=== PATIENT | male | born 1940 | race Caucasian/White ===

== ENCOUNTER 2019-12-08 09:28 | Outpatient (CLI) | payer MEDICARE, OTHER, SELFPAY ==
--- NOTE | 2019-12-08 10:03 | MR_ITS ---
WS: [id number] MRI THORACIC SPINE WITHOUT CONTRAST TECHNIQUE: Sagittal T1, T2 and STIR imaging. Axial T2 imaging. Noncontrast imaging obtained. CLINICAL INFORMATION: POSTLAMINECTOMY SYNDROME COMPARISON: None. FINDINGS: Mild thoracic curve. Mild thoracic kyphosis. Anterior wedging in the thoracic spine. No acute pranay brigido fractures. Cord signal is normal. Small disc osteophyte protrusions in the mid and lower thoraci c spine more prominent at T5-6, T8-9, T9-10, T10-T11, and T11-12. Mild central canal stenosis T10-11. Mild bony foraminal narrowing more prominent at right T2-3, bilateral T9-T10, bilateral T10-11, right T11-T12. Moderate facet arthropathy lower thoracic spine. Normal caliber thoracic aorta. Adrenal glands are normal. MR/MR thoracic spin wo con* [id number] IMPRESSION: 1. Mild thoracic kyphosis with mild thoracic curve. 2. No acute compression fractures. 3. Mild chronic anterior wedging in the mid thoracic spine at T6-7. 4. Mild central canal stenosis T10-11. 5. Moderate facet arthropathy in the lower thoracic spine. 6. Mild bony foraminal narrowing described above.
--- NOTE | 2019-12-08 10:03 | MR_ITS ---
WS: [id number] MRI LUMBAR SPINE WITH CONTRAST TECHNIQUE: Sagittal T1, T2 and STIR imaging. Axial T1 and T2 imaging. Post gadolinium imaging was obt ained. CLINICAL INFORMATION: POSTLAMINECTOMY SYNDROME COMPARISON: MRI April 09, 2010 FINDINGS: Mild lumbar curve. No acute compression. Prior postoperative changes pedicle screw fixation with lami nectomy defects L4-5. Interbody fusion L4-L5 and L5-S1. No high-grade central canal stenosis. L1-L2: Mild disc bulging with endplate ridging. Narrowing of the subarticular recess right greater th an left. Mild to moderate right and mild left foraminal narrowing. Mild facet arthropathy. L2-L3: Mild disc bulge with endplate ridging. Moderate facet arthropathy. Left foraminal protrusion i mpinges the exiting left L2 nerve root with moderate left foraminal narrowing. Mild right foraminal n arrowing. L3-L4: Disc osteophyte complex with endplate ridging. Mild central canal stenosis. Impingement on the traversing L4 nerve roots. Moderate facet arthropathy with small facet effusions. Mild to moderate l eft and mild right foraminal narrowing. L4-L5: Pedicle screw fixation with interbody fusion. Mild left and no significant right foraminal ignacio rowing. Spinal canal is patent. L5-S1: Postoperative changes pedicle screw fixation with interbody fusion. Spinal canal and foramen a re patent. Mild diffuse bladder wall thickening. Enlarged T2 hyperintense prostate is partially visualized. Dorian mmend correlation with PSA. MR/MR lumbar spine wo/w con [id number] IMPRESSION: 1. Partially visualized enlarged prostate with evidence of bladder outlet obst ruction. Recommend correlation PSA. This is incompletely visualized but measure s 5 to 6 cm. 2. Prior postoperative changes pedicle screw fixation L4-5 and L5-S1 with inte rbody fusion grafts and laminectomy defects. No recurrent central canal stenosi s at these levels. 3. Mild central canal stenosis L2-L3 and L3-L4 with narrowing of the subarticu lar recess. 4. Narrowing of the right articular recess L1-2 with encroachment traversing r ight L2 nerve root. 5. Mild to moderate foraminal narrowing more prominent at right L1-2, left L2- 3, left L3-4.
--- NOTE | 2019-12-08 10:03 | XR_ITS ---
WS: [id number] LUMBAR SPINE FLEXION AND EXTENSION TECHNIQUE: 3 views of the lumbar spine: Lateral neutral, flexion, and extension views. CLINICAL INFORMATION: POSTLAMINECTOMY SYNDROME COMPARISON: None. FINDINGS: Prior postoperative changes pedicle screw fixation L4-5. Slight anterolisthesis L3 on L4 measuring 3 mm. No stability on flexion-extension. Disc space narrowing worse at L3-4. Mild disc space narrowing L1-L2 and L2-L3. S1 fusion. XR/XR lumbar spine f/e only [id number] IMPRESSION: 1. Prior postoperative changes pedicle screw fixation L4-5 with interbody fusi on grafts. 2. Slight anterolisthesis L3 on L4 measuring 3.3 mm. No instability on flexion extension.
[2019-12-08 12:14] LABS: Blood Urea Nitrogen 13 mg/dL (8-23)
== END 2019-12-08 09:29 | disposition home or self-care (01) ==
LOC: RADWPI 09:38
PROVIDERS: Family Provider Physician Assistant Medical; Visit Provider Anesthesiology Pain Medicine
DX: M96.1 Postlaminectomy syndrome, not elsewhere classified (principal); M48.04 Spinal stenosis, thoracic region; M47.894 Other spondylosis, thoracic region; M43.26 Fusion of spine, lumbar region; M48.061 Spinal stenosis, lumbar region without neurogenic claudication
CPT/HCPCS: 72120; 72146; 72158; 82565; 84520; A9579

== ENCOUNTER 2019-12-31 08:02 | Outpatient (CLI) | payer MEDICARE, OTHER, SELFPAY ==
--- NOTE | 2019-12-31 08:24 | ECG_ITS ---
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 Interpretive Statements NAME OF STUDY: LEXISCAN SESTAMIBI STRESS TEST INDICATION: Chest Pain PROCEDURE: At the baseline, the blood pressure was 145/87 mmHg with a heart rate of 60 bpm. The electrocardiogram showed atrial fibrillation with slow ventricular response at 52 bpm. Normal axis with nonspecific ST depression. The Lexiscan was infused over a period of 20 seconds. A total of 0.4 milligrams of Lexiscan was infused. The stress phase was continued for a total of 5 minutes. Heart rate at the end of the stress phase was 71 bpm with a blood pressure 164/96 mmHg. The EKG at the peak infusion revealed no significant ST-T wave changes. Sestamibi was injected 20 seconds after the Lexiscan infusion. Blood pressure at the end of the recovery phase was 161/95 mmHg with a heart rate of 65 beats per minute. CONCLUSION: 1. No significant EKG changes with the LexiScan infusion. 2. No LexiScan induced chest pain or cardiac arrhythmia. 3. Normal blood pressure and heart rate response. 4. Sestamibi/sestamibi perfusion scan pending; see separate report. Electronically Signed On 01-02-2020 13:54:54 CDT by Beatrice Willson M.D. [email or web address]
[2019-12-31 08:25] VITALS: BMI 39.5
--- NOTE | 2019-12-31 08:25 | NMCV_ITS ---
NM john perf SPECT r/s* [id number] Brandon Tuttle Age: 79 Gender: M : 1940 Exam Date: 12/31/2019 09:40 Ordering Phys: Inderjit Naylor PA-C XX Technologist: ODETTE Hayes Exam Location: [facility] Indications: CHEST PAIN STRESS TEST Please [facility] for full findings IMAGE PROTOCOL Rest/Stress 1 Lexiscan Day Radiopharmaceutical Dose (mCi) Administration Site Administered by Rest: Tc-99m 11.0 IV ODETTE Peraza Sestamibi Stress:Tc-99m 32.6 IV ODETTE Peraza Sestamibi Rest: 31-Dec-2019 60 Discovery 630 Stress: 31-Dec-2019 30 Discovery 630 0.4mg Lexiscan. Supine position only as patient was unable to lay prone. SPECT RESULTS Technical Quality: Excellent Raw Data Analysis: Normal Image Corrections: No attenuation or motion correction applied Summed Stress Score: 0 Summed Rest Score: 4 Summed Difference Score: 0 PERFUSION FINDINGS Small sized perfusion abnormality of mild severity of mid septal and mid to apical inferolateral juan on rest images with improved tracer uptake on stress images. This is suggestive of attenuation artifact. FUNCTIONAL RESULTS (calculated via Gated SPECT) Stress Image LV EF (%): 55 Stress EDV (mL):129 TID: 1.14 Stress ESV (mL):58 FUNCTIONAL FINDINGS: The left ventricle is normal in size. Transient Ischemia Dilatation of 1.1. There is normal left ventricular systolic function. The left ventricular ejection fraction is normal with a value of 55%. There is normal left ventricular wall thickening. IMPRESSIONS 1. Myocardial perfusion imaging is normal. Attenuation artifact noted in mid septal and mid inferolateral juan. 2. Overall left ventricular systolic function is normal without regional wall motion abnormalities. 3. The left ventricular ejection fraction is normal with a value of 55%. 4. No coronary ischemia based on the study. Beatrice Willson MD (Electronically Signed) Final Date: 02 January 2020 12:26 S
[2019-12-31] MEDS: regadenoson 0.4 Mg/5 ml Syringe IVP (10:19)
[2019-12-31 11:15] VITALS: BP 161/95; PULSE 75
== END 2019-12-31 08:03 | disposition home or self-care (01) ==
LOC: CDL 08:02
PROVIDERS: Family Provider Physician Assistant Medical; Visit Provider Physician Assistant Medical
DX: R07.9 Chest pain, unspecified (principal)
CPT/HCPCS: 78452; 93017; A9500; J2785

== ENCOUNTER 2020-01-13 09:26 | Observation (INO) | payer MEDICARE, OTHER, SELFPAY ==
[2020-01-12 12:27] VITALS: BMI 39.5
[2020-01-13] VITALS (19 sets, daily range): BP systolic 110–158; BP diastolic 77–101; PULSE 55–75; RESP 16–21; TEMP 36.2–37.1; O2SAT 96–100
--- NOTE | 2020-01-13 | XR_ITS ---
WS: [id number] INTRAOPERATIVE TECHNIQUE: 2 Spot fluoroscopic images for intraoperative purposes. FLUOROSCOPY TIME: 39.2 seconds CLINICAL INFORMATION: THORACIC SPINE STIMULATOR IMPLANT COMPARISON: None. FINDINGS: Dorsal spinal stimulator projected over the mid and lower thoracic spine. XR/XR thoracic spine 1V [id number] IMPRESSION: Images obtained for intraoperative purposes.
--- NOTE | 2020-01-13 | SCC_ITS ---
Procedure Done: Thoracic laminotomy, with placement of intraspinal epidural paddle electrode arrays. Placement of subcutaneous programmable pulse generator. 39.2 seconds of fluoroscopic guidance, for a cumulative dose of 31.51 mGy, was provided to Dr. Ramires by the radiology department. C-arm images of the thoracic spine were saved for the patient's permanent record. [facility]
--- NOTE | 2020-01-13 06:28 | ANES.PREANE2 ---
Pre-Anesthetic Assessment Pre-Anesthetic Assessment: Height/Weight: Height 1.73 m Weight 117.934 kg Temp Pulse Resp BP Pulse Ox 97.6 F 66 18 140/77 97 01/13/20 06:12 01/13/20 06:12 01/13/20 06:12 01/13/20 06:12 01/13/20 06:12 Preop Diagnosis: Lumbar postlaminectomy syndrome Proposed Procedure: Operation Date: 01/13/20 07:00 Proposed Procedures p Dorsal Column Stimulator Insertion/[id number] M96.1(Not Applicable) - Davidson Ramires MD Familial anesthetic complications: None Was Beta Pilar taken within 24 hours: N/A Last intake: NPO > 8 hrs NO warfarin since last week Social: Social History: No alcohol and No tobacco Exam: Pre-Anes Outpt Exam: alert, oriented x 3, clear to auscultation bilaterally and regular rate & rhythm Airway: Cervical ROM: WNL MP: 4 Dentition: Full Pulmonary: Pulmonary: None reported CV/HEM: CV/HEM: Afib and HTN Metabolic: Metabolic: Morbid obesity Neuropsych: Neuropsych: None reported Anesthetic Plan: ASA status: 3 Anesthesia: MAC Risk of > 500 ml blood loss (7ml/kg in children): No PFSH Anesthesia PFSH: Medical History (Updated 12/21/19 @ 13:54 by Davidson Ramires MD) Lumbar post-laminectomy syndrome Lumbar stenosis with neurogenic claudication Postlaminectomy syndrome Spondylolisthesis, lumbar region Surgical History (Updated 12/21/19 @ 13:54 by Davidson Ramires MD) History of lumbar surgery (~12/02/14) L5-S1 PLIF with methylmethacrylate pedicle screw augmentation, Dr. Albrecht History of sacroiliac joint dysfunction stereotactic guided left sacroiliac joint arthrodesis with instrumentation, Dr. 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
[2020-01-13] MEDS: sodium chloride 0.9% 1,000 ML 30 ML IV (06:47)
[2020-01-13] MEDS: vancomycin 1,000 MG in sodium chloride 0.9% 250 ML 250 MG IV (06:47)
--- NOTE | 2020-01-13 06:48 | W.PM.OPSUD ---
Surgery/Procedure H&P Update DATE OF PROCEDURE: January 13, 2020 DATE H&P PERFORMED: 12/16/19 H&P UPDATE INFORMATION: I have reviewed H&P completed within last 30 days and H&P to be scanned into chart PREOP DIAGNOSIS: Lumbar postlaminectomy syndrome PRIMARY INDICATION FOR PROCEDURE: Pain PLANNED PROCEDURE: Operation Date: 01/13/20 07:00 Proposed Procedures Thoracic spinal cord Stimulator Placement
[2020-01-13] MEDS: ceFAZolin 3,000 MG in sodium chloride 0.9% (100 ml) 100 ML 200 MG IV (07:00)
--- NOTE | 2020-01-13 07:02 | PM.OP2 ---
Brief Operative Note: Date of procedure: 01/13/20 Pre-op diagnosis: Lumbar Postlaminectomy syndrome Post-op diagnosis: same Procedure Done: Placement of thoracic spinal cord stimulator paddle lead and pulse generator. Surgeon: Davidson Ramires Estimated blood loss (mL): 10 Complications: None. Post-op Plan: PACU, then phillips Condition: stable Disposition: PACU Coding Level of Care Code Acute Chemist Instrumentation for Deanna Wetzel
[2020-01-13] MEDS: thrombin 5,000 unit SDV 5000 UNIT XX (08:43)
[2020-01-13] MEDS: morphine 4 mg/mL SDV 1 mL IVP (09:51)
--- NOTE | 2020-01-13 09:55 | SUR.PHASEI ---
0951 PT HAS BEEN SLEEPING SINCE ADMIT, EVEN RESP SATS 100% ON 2LNC, DRESSING TO BACK D/I PT JUST NOW PT NOW AWAKE MOANING RATES MID BACKPAIN AT 10 SEE MED GIVEN.
[2020-01-13] MEDS: fentaNYL 50 mcg/mL INJ 2mL 100 MCG IVP (10:08)
--- NOTE | 2020-01-13 10:21 | SUR.PHASEI ---
DR BLACK AT BEDSIDE EARLIER MEDS GIVEN DR BLACK AT BEDSIDE, SEE FENTANYL AND OFIRMEV GIVEN ORDERED PT DOZING FOR FEW SECONDS BUT AWAKES RESTLESS AND C/O OF UNCHANGED PAIN OF 10 , FACE SCALE 3-4 . REPORT CALLED TO FLOOR PT TO GET PO PAIN MED ON FLOOR DRESSING TO BACK D/I X 2
--- NOTE | 2020-01-13 10:24 | SUR.PHASEI ---
LATE ENTRY PT TO PACU 0832 SLEEPING PT RYTHM ON MONITOR AFIB
--- NOTE | 2020-01-13 10:57 | SUR.PHASEI ---
1035 PT TO FLOOR AWAKE ALERT PT UP WALKED TO BED WITH MINIMAL ASSIST, VSS DRESING WITH SMALL 2 SPOTS OF RED TO MID BACK TELFA MARKED BY FLOOR NURSE , HANDOFF AT BEDSIDE PT STATEE PAIN IS BETTER BUT STILL 30 , FACE SCALE 3
[2020-01-13] MEDS: lactated ringers 1,000 ML 90 ML IV (11:00)
--- NOTE | 2020-01-13 14:37 | PM.OP ---
Operative Report Date of procedure: January 13, 2020 Pre-op Diagnosis: Lumbar postlaminectomy syndrome Post-op diagnosis: same Procedure Done: Thoracic laminotomy, with placement of intraspinal epidural paddle electrode arrays. Placement of subcutaneous programmable pulse generator. Implants: [employer] CoverEdge 32, 70 cm, 4X8 surgical first assistant. Sols WaveWriter pulse generator. Clik anchors. Fixate suture devices. Pathology: none sent Surgeon: Davidson Ramires Anesthesia: MAC Estimated blood loss (mL): 10 IV fluids (mL): 300 Complications: None. Condition: stable Disposition: PACU Brief History: The patient is an 79-year-old male with chronic low back and bilateral hip pain. He had an L4-L5 fusion/fixation and a left SI joint fusion in [place]. Persistent pain prompted a percutaneous spinal cord stimulation trial, which provided 60-70% improvement in pain related parameters during the trial. After review of the diagnostic and treatment options with the risks/potential benefits/rationale for each, he requested to proceed with permanent thoracic spinal cord placement. Procedure: After routine preoperative evaluation and informed consent were obtained, the patient was taken to the Operating Room and positioned prone on the operating table. Chest and pelvic bolsters were positioned to ensure the abdomen was decompressed. All pressure points were padded. The patient reported the position to be comfortable. He was maintained under varying levels of intravenous sedation by Anesthesia personnel. The planned right flank pulse generator placement incision was marked with a skin marker. A planned midline posterior thoracic incision was likewise marked, after intraoperative localization with fluoroscopy. The patient's lead location during the successful percutaneous trial was utilized to guide placement for the permanent implant. The posterior thorax and flank areas were scrubbed with Betadine and prepped with DuraPrep. Sterile towels and drapes were applied, and an Ioban surgical barrier was placed. The proposed midline thoracic incision was infiltrated with 1% Xylocaine with epinephrine. A skin incision was made and carried down into the subcutaneous tissues. The deep fascial plane was identified and divided in the midline. A right-sided subperiosteal dissection was carried down along the lamina at what appeared by intraoperative fluoroscopy to be T8/9. Deep self-retaining retractors were placed to maximize the operative exposure. A laminotomy was fashioned with Kerrison rongeurs. Ligamentum flavum was resected at the base of the laminotomy site. The hockey-stick dural separator was advanced into the dorsal epidural space without resistance, and then removed. The [employer] CoverEdge 32, 70 cm, 4 x 8 surgical first assistant was then advanced into the dorsal epidural space. Intraoperative fluoroscopy suggested a near midline position with the cephalad extent of the lead extending across the majority of T7. A limited adjacent level laminotomy was required to complete positioning of the lead in the desired location. Anesthesia personnel diminished the patient's sedation until he was awake and conversant. The lead tails were connected to extension cables, and intraoperative spinal cord stimulation was performed. The patient reported good paresthesia coverage of his chronic low back and hip pain sites. Lead impedances were good. The patient's sedation was deepened. The wound was copiously irrigated with sterile saline and antibiotic irrigation. Hemostasis was ensured with bipolar electrocautery and Surgi-Tai hemostatic matrix. The fascia was closed utilizing 2-0 Vicryl Plus in a simple interrupted fashion. CLIK lead anchors were placed over 2 of the 4 lead tails, and secured at the fascial entry point with Fixate suture devices. The lead - anchor - fascial interfaces were manipulated and found to be secure. Intraoperative fluoroscopy verified a stable lead position. Strain relief loops of the lead tails were fashioned within the subcutaneous space at the thoracic incision site. The right flank incision site was prepared by infiltration with 1% Xylocaine with epinephrine. An incision was then made, and a subcutaneous pocket was created of adequate size to accommodate the pulse generator. The subcutaneous tunneling tool was utilized to create a subcutaneous passage between the thoracic and right flank incisions. Lead tails were advanced through the subcutaneous tunnel utilizing the tunneling tool. The lead tails were advanced into the appropriate ports on the Sols WaveWriter pulse generator. An impedance check demonstrated no lead faults. The connection sites were secured with set screws and the torque wrench. The connection sites were manipulated and found to be secure. A second impedance check demonstrated no lead faults.The right flank subcutaneous pocket and the thoracic incision site were copiously irrigated with antibiotic irrigation. Hemostasis was ensured. The pulse generator was placed within the right flank subcutaneous pocket, with excess lead coiled deep/adjacent to the device. The pulse generator was anchored to the superficial fascia with a single Silk suture. The site was again irrigated with antibiotic irrigation. Wound closure was performed in multiple layers with 2-0 Vicryl Plus simple interrupted closure of the dermis. Intraoperative fluoroscopy was again utilized to verify a stable lead position. Final skin closure was performed at both incision sites with 3-0 Vicryl Plus in a running subcuticular pattern. Steri-Strips were applied, and sterile dressings were placed. The patient was then rotated onto the Recovery Room cart in the supine position. He tolerated the procedure well. All sponge, needle and instrument counts were correct at the completion of the procedure.
--- NOTE | 2020-01-13 17:55 | P.DS_ITS ---
Discharge Providers Date of Admission: 01/13/20 09:26 Date of Discharge: January 13, 2020 Attending Provider at Admission: Davidson Ramires MD Attending Provider at Discharge: Davidson Ramires MD Primary Care Provider: Inderjit Naylor Diagnoses at Discharge Discharge Diagnosis (1) Lumbar post-laminectomy syndrome: Status: Acute Reason for Visit Reason for Visit: Lumbar laminectomy syndrome Brief History: The patient is an 79-year-old male with chronic low back and bilateral hip pain. He had an L4- L5 fusion/fixation and a left SI joint fusion in [place]. Persistent pain prompted a percutaneous spinal cord stimulation trial, which provided 60- 70% improvement in pain related parameters during the trial. After review of the diagnostic and treatment options with the risks/potential benefits/rationale for each, he requested to proceed with permanent thoracic spinal cord placement. Hospital Course Hospital Course: The patient underwent thoracic laminotomy placement of intraspinal, epidural paddle electrode arrays and placement of subcutaneous programmable pulse generator on 01/13/2020. He noted good paresthesia coverage of chronic low back and hip pain with intraoperative stimulation. He tolerated the procedure well. He completed perioperative intravenous antibiotics. He was ambulatory, voiding, and tolerating regular diet prior to discharge home on the evening of the day of surgery. Physical Exam Const: COMMON NORMALS: no acute distress GENERAL APPEARANCE: cooperative and comfortable Resp: COMMON NORMALS: normal respiratory effort EFFORT & INSPECTION: Yes able to speak in complete sentences and No tachypneic Neuro: COMMON NORMALS: moves all extremities Psych: COMMON NORMALS: mental status grossly normal ATTITUDE: Yes calm and Yes engaged ACTIVITY/MOTOR BEHAVIOR: Yes appropriate eye contact Skin: WOUNDS: Yes surgical site (Midline posterior thoracic and right flank surgical site dressings C/D/I.) Discharge Data Data Completed and Pending: Completed Studies During Hospitalization Category Date Time Status XR thoracic spine 1V [id number] Routine Exams 01/13/20 Completed Procedures Performed: Thoracic laminotomy with placement of intraspinal, epidural paddle electrode arrays. Placement of subcutaneous programmable pulse generator. Intravenous antibiotics. Vitals: Last Vital Signs Temp 98.2 F 01/13/20 17:02 Pulse 61 01/13/20 17:02 Resp 16 01/13/20 17:02 BP 138/78 01/13/20 17:02 Pulse Ox 97 01/13/20 17:02 Discharge Plan Discharge Patient Disposition: Home, Self-Care Condition: Stable Prescriptions: [place] 10-325 mg tablet 1 tab PO Q6H PRN (Reason: pain) Qty: 25 RF: 0 Continued lisinopril 20 mg tablet 20 mg PO DAILY RF: 0 acetaminophen [Tylenol] 325 mg tablet 325 mg PO QID PRN (Reason: Pain) RF: 0 Held warfarin 5 mg tablet 5 mg PO DAILY RF: 0 Hold Instructions: Resume on 01/15/20. Discontinued hydrocodone-acetaminophen 5-325 mg tablet 5 tab PO PRN PRN (Reason: Pain) RF: 0 Discharge Orders: Discharge Order (Routine); Ordered 01/13/20 Ordered By: Davidson Ramires Referrals: Davidson Ramires MD [Physician] - 01/27/20 9:00 am (You have a hospital follow up appointment on January 26 at 9:00am) Discharge Diet: Regular Discharge Activity: Limit activity as instructed Patient Instructions: Hydrocodone/Acetaminophen (By mouth), Spinal Cord Stimulator Placement (DC) Activity Restrictions/Additional Instructions: Activity - No driving until office followup visit - No lifting/pushing/pulling over 10 pounds - Avoid twisting or bending - Walking is encouraged - Home exercise per physical therapist - You may engage in sexual intercourse at any time as long as it is comfortable for you - Check with your doctor before returning to work. Notify your doctor if you develop: - temperature of 101.5 degrees F. or higher - redness or swelling of the incision - Foul drainage - increasing pain - increasing numbness or tingling in the arms or legs - New or increasing problems with vision, balance, memory, speaking, nausea or v omiting Hygiene: - Showering is okay - No tub baths or soaking Other: Remove outer bandage 3 days after surgery. If you have paper strips, leave in place until they fall off on their own. If you have stitches, keep your incision dry until the stitches are removed. Your doctor's office is available to answer any questions from 7 AM to 5:00 PM, Friday through at [phone]. After hours, go to the emergency room at [facility] or call 911 for assistance. Discharge Date/Time: 01/13/20 17:05 Discharge Attestations Time Spent in Discharge Care*: other (Postop global) Quality Metrics Clinical Quality Measures During this hospital stay, did patient experience: None Coding Level of Care Code Acute Music Librarian for Chg Fwd Exam Detailed Diagnoses Lumbar post-laminectomy syndrome M96.1 Comment Postop global.
== END 2020-01-13 17:05 | disposition home or self-care (01) ==
LOC: MEDSURG 09:39
PROVIDERS: Admitting Provider Specialist; PCP Physician Assistant Medical; Visit Provider Specialist
PROC: (CPT 63655; principal; 2020-01-13 07:00)
DX: M96.1 Postlaminectomy syndrome, not elsewhere classified (principal); I48.91 Unspecified atrial fibrillation; I10 Essential (primary) hypertension; E66.01 Morbid (severe) obesity due to excess calories; Z68.39 Body mass index [BMI] 39.0-39.9, adult; Z79.01 Long term (current) use of anticoagulants
CPT/HCPCS: 63655; 63685; 12345; 72020; 76000; 96365; 96366; C1778; C1820; C1883; G0378; J0131; J0690; J2001; J2270; J2704; J3010; J3370; J3490; J7030; J7050

== ENCOUNTER 2020-10-24 08:09 | Outpatient (CLI) | payer MEDICARE, OTHER, SELFPAY ==
--- NOTE | 2020-10-24 08:27 | IR_ITS ---
WS: [id number] MYELOGRAM LUMBAR SPINE Fluoroscopic guided lumbar myelogram CLINICAL INFORMATION: LOW BACK PAIN COMPARISON: None. TECHNIQUE: The procedure, including risks, benefits, and complications, were discussed with the patie nt who agreed to proceed. A timeout was performed to confirm correct patient, procedure, and site. Using sterile technique, the patient was prepped and draped in the usual sterile fashion. After admin istration of local anesthesia using 1% preservative-free lidocaine and using fluoroscopic guidance, a 22-gauge spinal needle was advanced into the subarachnoid space at the L4-5 level. Subsequently 13 c c of Omnipaque 240 was administered into the thecal sac. The needle was removed and hemostasis was ac hieved. Spot fluoroscopic images were obtained. FLUOROSCOPIC TIME: 1.[address] myelogram report for anatomic detail. IR/IR myelogram sp lumbar [id number] IMPRESSION: 1. Uncomplicated lumbar myelogram 2. Please see CT myelogram report for anatomic detail.
--- NOTE | 2020-10-24 08:28 | CT_ITS ---
WS: [id number] CT LUMBAR SPINE TECHNIQUE: Contrast-enhanced CT of the lumbar spine with coronal and sagittal reformatted images. CLINICAL INFORMATION: LOW BACK PAIN COMPARISON: MRI December 08, 2019 DLP: 2142.[address] scans at [facility] use at least one of these dose optimization techniques: automat ed exposure control; mA and/or kV adjustment per patient size (includes targeted exams where dose is matched to clinical indication); or iterative reconstruction. FINDINGS: Fluoroscopic findings demonstrates mild lumbar curve. No acute compression. Disc space narr owing worse at L3-4 with vacuum disc phenomenon. Pedicle screw fixation L4-L5 and L5-S1 with interbod y fusion grafts. Left sacroiliac fixation screws. Aortic calcification. Spinal stimulator. Hardware a ppears intact. Slight anterolisthesis L3 on L4. No instability on flexion-extension. Moderate facet arthropathy lowe r lumbar spine L3-L5. Mild central canal stenosis L3-4. Mild lumbar curve convex left. No acute compression. No high-grade central canal stenosis. Prior post operative changes pedicle screw fixation L4-L5 and L5-S1 with interbody fusion grafts. No evidence of hardware loosening. Postoperative changes left sacroiliac screw fixation. Interbody fusion grafts ap pear solid with evidence of bony bridging beyond the confines of the graft. L1-L2: Disc space narrowing with vacuum disc phenomenon. Mild disc bulging with osteophytic ridging. Narrowing of the right subarticular recess. Small right proximal foraminal protrusion with mild right foraminal narrowing with contact of the exiting right L1 nerve root. Mild facet arthropathy and liga mentum flavum hypertrophy. L2-L3: Mild disc bulging with slight effacement of ventral thecal sac. Right proximal foraminal protr usion contacts the exiting right L2 nerve root. Recommend correlation right L2 nerve root symptoms. L eft foramen is patent. Spinal canal is patent. Mild facet arthropathy with ligamentum flavum hypertro phy. L3-L4: Disc desiccation with disc space narrowing worse at this level. Vacuum disc phenomenon. Mild c entral canal stenosis with narrowing of the subarticular recess bilaterally. Moderate bilateral alejandrina inal narrowing left greater than right with small foraminal protrusions. L4-L5: Prior postoperative changes pedicle screw fixation with interbody fusion. Mild left and no sig nificant right foraminal narrowing. Spinal canal is patent. L5-S1: Postoperative changes pedicle screw fixation with interbody fusion. Spinal canal and foramen a re patent. Adrenal glands are normal. Aortic calcification. Slightly ectatic infrarenal abdominal aorta. CT/CT lumbar spine w con [id number] IMPRESSION: 1. Prior postoperative changes pedicle screw fixation L4-5 with interbody fusi on grafts. No evidence of hardware loosening. Evidence of bony bridging beyond the confines of the interbody fusion grafts. 2. Left sacroiliac fusion screws. 3. Mild central canal stenosis L3-4 with slight impingement subarticular reces s bilaterally. Moderate bilateral foraminal narrowing left greater than right w ith proximal left foraminal protrusion. 4. Small right foraminal protrusion L2-3 contacts the exiting right L2 nerve r oot with slight narrowing of the right subarticular recess. 5. Small right foraminal protrusion L1-2 slightly contacts the exiting right L 1 nerve root. 6. Disc desiccation worse at L3-4 with endplate degenerative changes.
[2020-10-24] MEDS: iohexol 240 mg/mL 50 mL Btl INTRATHECA (09:13)
== END 2020-10-24 08:10 | disposition home or self-care (01) ==
PROVIDERS: PCP Physician Assistant Medical; Visit Provider Specialist
DX: M51.26 Other intervertebral disc displacement, lumbar region (principal); M48.061 Spinal stenosis, lumbar region without neurogenic claudication
CPT/HCPCS: 62304; 72120; 72132; Q9966

== ENCOUNTER → 2022-05-07 15:50 | Outpatient (BNVA) | payer MEDICARE, OTHER, SELFPAY | PROVIDERS: PCP Physician Assistant Medical; Visit Provider Orthopaedic Surgery | DX: M48.062 Spinal stenosis, lumbar region with neurogenic claudication (principal); Z96.82 Presence of neurostimulator; Z98.1 Arthrodesis status; M41.9 Scoliosis, unspecified; M47.816 Spondylosis without myelopathy or radiculopathy, lumbar region | CPT/HCPCS: 72070; 72110; 99204 ==

== ENCOUNTER 2022-06-17 05:30 | Day surgery (SDC) | payer MEDICARE, OTHER, SELFPAY ==
[2022-06-12 08:45] VITALS: BMI 39.2
--- NOTE | 2022-06-12 08:58 | ECG_ITS ---
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 Measurements Intervals [place] Rate: 77 P: 0 VT: 0 QRS: 218 QRSD: 105 T: 180 QT: 390 QTc: 443 Interpretive Statements ATRIAL FIBRILLATION PATTERN CONSISTENT WITH PULMONARY DISEASE No previous ECG available for comparison Electronically Signed On 06-12-2022 9:27:44 ENDOCRINOLOGY SPECIALIST by Yulissa Kumar M.D. [id number]
[2022-06-12 09:33] LABS: Anion Gap 11.5 (5-19); Blood Urea Nitrogen 16 mg/dL (8-23); Calcium 9.5 mg/dL (8.5-10.5); Carbon Dioxide 26 mmol/L (22-29); Chloride 104 mmol/L (98-107); Glucose 89 mg/dL (65-115); Osmolality Calculated 285 mOsm/kg (285-295); Potassium 4.5 mmol/L (3.5-5.1); Sodium 137 mmol/L (136-145)
--- NOTE | 2022-06-12 09:34 | SUR.PREOP ---
patient takes warfarin daily. patient instructed to ask dr when he sees them at his pt/inr appointment today to ask them when he needs to quit taking warfarin prior to surgery on 06/17. patient understood. pt family member present for discussion. patient was not seen by anesthesia at pre op today due to code blue in gi lab.
--- NOTE | 2022-06-12 13:04 | SUR.PREOP ---
clinic called back for patient to stop warfarin 5 days prior to surgery. called patient and he states they told him today at his appointment to not take anymore after the dose he took today until after surgery.
[2022-06-17] VITALS (8 sets, daily range): BP systolic 120–162; BP diastolic 80–102; PULSE 71–102; RESP 14–21; TEMP 36.3–36.5; O2SAT 17–95
--- NOTE | 2022-06-17 | XR_ITS ---
WS: [id number] XR thoracic spine 2V [id number] REASON FOR EXAM: removal of spinal cord stimulator FINDINGS: Several C-arm images are obtained during removal of the spinal cord stimulator. XR/XR thoracic spine 2V [id number] IMPRESSION: Spinal cord stimulator removed.
--- NOTE | 2022-06-17 06:01 | PM.HP ---
Providers/Chief Complaint Chief Complaint: LAMINECTOMY FOR NEUROSTIMULATOR WIRE REMOVAL History of Present Illness Brandon Tuttle is a 81 year old male poppy cord stimulator lead removal. This was placed on 01/13/2020.? He rates his pain 8/10 today.? He states he would like his spinal cord stimulator leads removed. He states he had someone at [facility] remove the generator however they were unable to remove the leads. He describes soreness to his low back. He states he is unable to walk long distances due to his pain. Review of Systems General: Reports: 10 or more systems reviewed and unremarkable except in HPI and below Narrative: See HPI Const: Denies: fever(s) Eyes: Denies: change in vision Card: Denies: chest pain Resp: Denies: dyspnea GI: Denies: nausea, vomiting or diarrhea : Denies: flank pain Musc: Denies: neck pain Skin/Breast: Denies: rash Medications/Allergies Home Medications Medication Instructions Recorded Confirmed Last Taken Type acetaminophen 325 mg tablet 325 mg PO QID PRN Pain 12/15/19 06/12/22 06/11/22 History (Tylenol) lisinopril 20 mg tablet 20 mg PO DAILY 12/15/19 06/17/22 06/16/22 History warfarin 5 mg tablet 5 mg PO DAILY 12/15/19 06/12/22 06/12/22 History furosemide 20 mg tablet 10 mg PO DAILY 04/16/21 06/12/22 06/13/22 History Allergies Allergy/AdvReac Type Severity Reaction Status Date / Time No Known Allergies Allergy Verified 06/17/22 05:57 PFSH Acute PFSH: Medical History (Updated 06/17/22 @ 06:02 by Alex Orona DO) Lumbar post-laminectomy syndrome Lumbar stenosis with neurogenic claudication Otitis media Post-operative state Postlaminectomy syndrome Spondylolisthesis, lumbar region Surgical History History of lumbar surgery (~12/02/14) L5-S1 PLIF with methylmethacrylate pedicle screw augmentation, Dr. Albrecht History of sacroiliac joint dysfunction stereotactic guided left sacroiliac joint arthrodesis with instrumentation, Dr. De León, 12/2018 Status post insertion of spinal cord stimulator 01/13/2020 Dr. D. Green: Thoracic laminotomy, placement of intraspinal, epidural paddle electrode arrays and placement of subcutaneous programmable pulse generator. 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 History of recent travel: No Physical Exam Const: COMMON NORMALS: no acute distress GENERAL APPEARANCE: cooperative and comfortable Resp: COMMON NORMALS: normal respiratory effort EFFORT & INSPECTION: Yes able to speak in complete sentences and No tachypneic Neuro: COMMON NORMALS: moves all extremities Psych: COMMON NORMALS: mental status grossly normal ATTITUDE: Yes calm and Yes engaged ACTIVITY/MOTOR BEHAVIOR: Yes appropriate eye contact Skin: WOUNDS: Yes surgical site (Midline posterior thoracic and right flank surgical site dressings C/D/I.) Data 06/12/22 09:03 A&P Assessment and plan (1) Lumbar stenosis with neurogenic claudication: removal of spinal cord stimulator Attestations Medical Necessity Statement*: failed conservative treatment Coding Level of Care Code Acute President [employer] for Deanna Wetzel Diagnoses Lumbar stenosis with neurogenic claudication M48.062
[2022-06-17] MEDS: sodium chloride 0.9% 1,000 ML 30 ML IV (06:29)
[2022-06-17 06:52] LABS: INR 1.18 (0.8-1.2)
[2022-06-17] MEDS: ceFAZolin 2,000 MG in sodium chloride 0.9% (plus) 50 ML 100 MG IV (07:00)
--- NOTE | 2022-06-17 07:13 | ANES.PREANE2 ---
Pre-Anesthetic Assessment Height/Weight: Height 1.78 m Weight 123.831 kg Temp Pulse Resp BP Pulse Ox O2 Del Method 97.5 F L 71 18 141/80 95 06/17/22 06:01 06/17/22 06:01 06/17/22 06:01 06/17/22 06:01 06/17/22 06:01 06/17/22 06:04 Preop Diagnosis: Failed hardware thoracic spine Operation Date: 06/17/22 07:00 Proposed Procedures p Lumbar Laminectomy FOR NEUROSTUMULATOR WIRE REMOVAL 99639/M48.062(Not Applicable) - Alex Orona, Familial anesthetic complications: none Was Beta Pilar taken within 24 hours: N/A Was Clonidine taken within 24 hours: N/A Last intake: Intake Last Liquid Date 06/16/22 Last Liquid Time 19:00 Last Solid Date 06/16/22 Last Solid Time 19:00 Social No alcohol and No tobacco (h/o smoking) Exam alert, oriented x 3, clear to auscultation bilaterally and regular rate & rhythm Airway Submandibular: within normal limits Cervical ROM: within normal limits Mallampati: Class II Dentition: chipped Pulmonary Chronic Obstructive Pulmonary Disease CV/HEM Hypertension Metabolic Morbid Obesity [facility] Lower Back Pain Anesthetic Plan ASA status: 3 Anesthesia: General Medications/Allergies Home Medications Medication Instructions Recorded Confirmed Last Taken Type acetaminophen 325 mg tablet 325 mg PO QID PRN Pain 12/15/19 06/12/22 06/11/22 History (Tylenol) lisinopril 20 mg tablet 20 mg PO DAILY 12/15/19 06/17/22 06/16/22 History warfarin 5 mg tablet 5 mg PO DAILY 12/15/19 06/12/22 06/12/22 History furosemide 20 mg tablet 10 mg PO DAILY 04/16/21 06/12/22 06/13/22 History hydrocodone 5 mg-acetaminophen 325 1 - 2 tab PO .Q4-6H #40 tabs 06/17/22 Unknown Rx mg tablet Allergies Allergy/AdvReac Type Severity Reaction Status Date / Time No Known Allergies Allergy Verified 06/17/22 05:57 Current Medications Generic Name Dose Route Start Last Admin Trade Name Freq PRN Reason Stop Dose Admin Sodium Chloride 1,000 mls @ 30 mls/hr 06/17/22 06:00 06/17/22 06:29 Sodium Chloride 0.9% IV 06/18/22 05:59 30 mls/hr .Q24H SATURNINO Administration PFSH Anesthesia Medical History (Updated 06/17/22 @ 06:02 by Alex Orona DO) Lumbar post-laminectomy syndrome Lumbar stenosis with neurogenic claudication Otitis media Post-operative state Postlaminectomy syndrome Spondylolisthesis, lumbar region Surgical History History of lumbar surgery (~12/02/14) L5-S1 PLIF with methylmethacrylate pedicle screw augmentation, Dr. Albrecht History of sacroiliac joint dysfunction stereotactic guided left sacroiliac joint arthrodesis with instrumentation, Dr. De León, 12/2018 Status post insertion of spinal cord stimulator 01/13/2020 Dr. Ugo Ramires: Thoracic laminotomy, placement of intraspinal, epidural paddle electrode arrays and placement of subcutaneous programmable pulse generator. 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
[2022-06-17] MEDS: vancomycin 1,000 MG SDV 1000 MG XX (07:32)
--- NOTE | 2022-06-17 07:56 | PM.OP ---
Operative Report Date of procedure: June 17, 2022 Pre-op diagnosis: Preop Diagnosis Failed hardware thoracic spine Post-op diagnosis: same Post-op diagnosis: removal of neurostimulator Procedure done: 1. Removal of neurostimulator from thoracic spine. Surgeon: Alex Orona Copy Center Specialist: Sterling Lozano Copy Center Specialist: The surgical technology instructor, Sterling Lozano, ABA was needed for his expertise under the microscope. He was important and necessary throughout the procedure to complete in a safe and timely manner. He assisted with patient positioning prepping and draping tissue retraction suctioning of the operative field protection of the dural sac and tissue closure Estimated blood loss (mL): 25 Procedure: 1. Removal of neurostimulator from thoracic spine. Patient was brought to the operative suite after undergoing anesthesia was placed in the prone position. All areas impingement well-padded. Patient was prepped and draped normal sterile fashion. Skin incision made using previous skin incision the dissection brought down wires were identified. Subperiosteal dissection was made along the thoracic spine where the nerve stimulated dove down under the lamina. Partial laminectomy was completed and space for remove the neurostimulator was had and then the neurostimulator was removed from the thoracic spine. All related bleeding was coagulated. Next test was brought to where the wires were in the pocket the patient had the battery moved previously however the wires were still there skin's was made over this area wires were identified and cut and then the other wires were pulled under the skin out the thoracic wound and wires and stimulator were completely removed C-arm was brought in to ensure that everything was removed wounds were then irrigated and closed in a layered fashion with 0 Vicryl 2-0 Vicryl and nylon suture. Sterile dressings were applied patient was transferred to the PACU in stable condition.
[2022-06-17] MEDS: HYDROcodone-acetaminophen 5-325 mg Tablet 1 TAB PO (09:17)
--- NOTE | 2022-06-17 15:18 | ANE.PACU2 ---
Inpatient post-anesthesia follow up: Airway intact: Yes Vital signs: Temperature 97.7 F Pulse Rate 72 Respiratory Rate 18 Blood Pressure 120/91 Pulse Oximetry 95 Oxygen Delivery Me thod Room Air Oxygen Flow Rate Fraction of Inspir ed Oxygen Hydration adequate: Yes Nausea and vomiting: No Pain level: 3 Mental status: Baseline
== END 2022-06-17 09:48 | disposition home or self-care (01) ==
PROVIDERS: Anesthesiology; Visit Provider Orthopaedic Surgery
PROC: (CPT 63662; principal; 2022-06-17 07:00)
DX: T85.192D Other mechanical complication of implanted electronic neurostimulator of spinal cord electrode (lead), subsequent encounter (principal); M48.062 Spinal stenosis, lumbar region with neurogenic claudication; Z79.01 Long term (current) use of anticoagulants; J44.9 Chronic obstructive pulmonary disease, unspecified; I10 Essential (primary) hypertension; E66.01 Morbid (severe) obesity due to excess calories; Z68.39 Body mass index [BMI] 39.0-39.9, adult
CPT/HCPCS: 63662; 63688; 36415; 72070; 76000; 80048; 85610; 93005; J0690; J1100; J2405; J2704; J2710; J3010; J3370; J3490; J7030

== ENCOUNTER → 2022-07-02 07:31 | Outpatient (BNVA) | payer MEDICARE, OTHER, SELFPAY | PROVIDERS: Visit Provider Orthopaedic Surgery | DX: Z47.89 Encounter for other orthopedic aftercare (principal); Z98.1 Arthrodesis status | CPT/HCPCS: 99024 ==

== ENCOUNTER 2022-08-29 08:40 | Outpatient (CLI) | payer MEDICARE, OTHER, SELFPAY ==
--- NOTE | 2022-08-29 09:30 | MR_ITS ---
WS: [id number] MRI LUMBAR SPINE NONCONTRAST TECHNIQUE: Sagittal T1, T2 and STIR imaging. Axial T1 and T2 imaging. CLINICAL INFORMATION: lumbar stenosis COMPARISON: CT October 14, 2020 and MRI December 08, 2019 FINDINGS: Mild lumbar curve. No acute compression. Prior postoperative changes pedicle screw fixation L4-L5 wit h interbody fusion graft. Decompressive laminectomy L4-L5. No recurrent central canal stenosis at thi s level. Enlarged heterogeneous prostate measuring 6.5 x 4.7 CCM. Recommend correlation PSA. L1-L2: Mild disc osteophyte complex with endplate ridging. Mild RIGHT foraminal narrowing. Mild facet arthropathy. L2-L3: Slight anterolisthesis. Disc bulging with a small RIGHT pericentral protrusion. Impingement tr aversing RIGHT L3 nerve root. Mild central canal stenosis. Mild facet arthropathy. RIGHT foraminal pr otrusion with mild to moderate RIGHT foraminal narrowing. LEFT foramen is patent. L3-L4: Disc osteophyte complex with endplate ridging. Impingement traversing LEFT L4 nerve root in th e subarticular recess. Mild LEFT and no significant RIGHT foraminal narrowing. Mild facet arthropathy . L4-L5: Pedicle screw fixation with interbody fusion graft laminectomy defects. Spinal canal and alejandrina en are patent. L5-S1: No significant disc bulging. L5 is partially sacralized. Spinal canal foramen are patent. Visualized pelvic bony structures: Normal. Paravertebral soft tissues: Normal. MR/MR lumbar spine wo con* [id number] IMPRESSION: Disc bulging and central canal stenosis at L2-L3 appears progressed compared to the prior myelogram 2020. No other significant changes. 1. Enlarged heterogeneous nodular prostate measuring 6.5 x 4.7 cm suspicious f or neoplasia/hyperplasia. Recommend correlation PSA. 2. Mild lumbar curve with prior pedicle screw fixation L4-L5 with interbody fu brigido graft. Laminectomy defects L4-L5. 3. Mild central canal stenosis L2-L3 with slight anterolisthesis and RIGHT per icentral protrusion. Impingement traversing RIGHT L3 nerve root. 4. Mild to moderate RIGHT L2-L3 foraminal narrowing. Impingement on the exitin g RIGHT L2 nerve root. 5. Mild central canal stenosis L3-L4 with slight narrowing of the LEFT subarti cular recess. Mild facet to moderate LEFT L3-L4 foraminal narrowing. 6. Spinal canal and foramen are patent at L4-L5.
== END 2022-08-29 08:41 | disposition home or self-care (01) ==
LOC: RAD 08:44
PROVIDERS: PCP Family Medicine; Visit Provider Orthopaedic Surgery
DX: M48.062 Spinal stenosis, lumbar region with neurogenic claudication (principal); Z98.890 Other specified postprocedural states; N40.2 Nodular prostate without lower urinary tract symptoms
CPT/HCPCS: 72148

== ENCOUNTER → 2022-09-03 13:20 | Outpatient (BNVA) | payer MEDICARE, OTHER, SELFPAY | PROVIDERS: PCP Family Medicine; Visit Provider Orthopaedic Surgery | DX: M48.062 Spinal stenosis, lumbar region with neurogenic claudication (principal); Z98.1 Arthrodesis status | CPT/HCPCS: 99214 ==

== ENCOUNTER → 2022-12-17 14:18 | Outpatient (BNVA) | payer MEDICARE, MEDICAID, SELFPAY | PROVIDERS: PCP Family Medicine; Visit Provider Orthopaedic Surgery | DX: M48.062 Spinal stenosis, lumbar region with neurogenic claudication (principal) | CPT/HCPCS: 99214 ==

== ENCOUNTER → 2023-01-27 09:21 | Outpatient (BNVA) | payer MEDICARE, MEDICAID, SELFPAY | PROVIDERS: PCP Family Medicine; Visit Provider Internal Medicine Cardiovascular Disease | DX: I50.9 Heart failure, unspecified (principal); I48.91 Unspecified atrial fibrillation; M48.062 Spinal stenosis, lumbar region with neurogenic claudication | CPT/HCPCS: 93005; 99204 ==

== ENCOUNTER 2023-02-03 14:17 | Outpatient (CLI) | payer MEDICARE, MEDICAID, SELFPAY ==
[2023-02-03 16:03] LABS: Blood Urea Nitrogen 24 mg/dL (8-23); Calcium 9.5 mg/dL (8.5-10.5); Carbon Dioxide 23 mmol/L (22-29); Chloride 99 mmol/L (98-107); Glucose 126 mg/dL (65-115); NT Pro B Type Natriuretic Pept 300 pg/mL (0-450); Osmolality Calculated 282 mOsm/kg (285-295); Sodium 133 mmol/L (136-145)
== END 2023-02-03 14:18 | disposition home or self-care (01) ==
LOC: LAB 14:22
PROVIDERS: PCP Family Medicine; Visit Provider Internal Medicine Cardiovascular Disease
DX: I48.91 Unspecified atrial fibrillation (principal); R06.02 Shortness of breath
CPT/HCPCS: 36415; 80048; 83735; 83880

== ENCOUNTER 2023-02-13 12:38 | Outpatient (CLI) | payer MEDICARE, MEDICAID, SELFPAY ==
--- NOTE | 2023-02-13 13:00 | USCV_ITS ---
Brandon Tuttle Age: 82 Gender: M : 1940 Exam Date: 02/13/2023 14:14 Ordering Phys: Beatrice Willson MD ([email or web address]) Technologist: Odalis Paz [place]am [place] [facility] [place] Indication: pre op, chest pain unspecified BP: 136 / 89 HR: 93 Rhythm: Sinus Technical Quality: Adequate MEASUREMENTS (Male / Female) Normal Values 2D ECHO LV Diastolic Diameter PLAX 5.6 cm 4.2 - 5.9 / 3.9 - 5.3 cm LV Systolic Diameter PLAX 2.3 cm IVS Diastolic Thickness 1.4 cm 0.6 - 1.0 / 0.6 - 0.9 cm IVS Systolic Thickness 2.1 cm LVPW Diastolic Thickness 1.2 cm 0.6 - 1.0 / 0.6 - 0.9 cm LVPW Systolic Thickness 1.6 cm LVOT Diameter 2.1 cm LV Ejection Fraction 2D Teich 87.9 % LV Ejection Fraction MOD 2C 58.4 % LV Ejection Fraction 2C AL 58.7 % LA Diameter 3.8 cm LA Width 4.7 cm LA Height 4.2 cm RA Width 3.4 cm Aorta at Sinotubular Diameter 3.0 cm IVC Diameter 2.2 cm M-MODE Aortic Annulus Diameter 3.5 cm LA Ao Ratio MM 0.9 MV E Point Septal Separation 0.4 cm DOPPLER AV Peak Velocity 240.0 cm/s LVOT Peak Velocity 76.0 cm/s AV Area Cont Eq vti 1.1 cm squared AV Area Cont Eq pk 1.1 cm squared MV Peak Velocity 114.0 cm/s MV Area PHT 3.7 cm squared Mitral E to A Ratio 6.1 MV E' Velocity 43.0 cm/s Mitral E to MV E' Ratio 10.1 Mitral E to LV E' Lateral Ratio 9.2 Mitral E to LV E' Septal Ratio 11.3 TR Peak Velocity 157.5 cm/s TR Peak Gradient 9.9 mmHg Right Atrial Pressure 5.0 mmHg Pulmonary Artery Systolic Pressu 14.9 mmHg PV Peak Velocity 123.0 cm/s RV Acceleration Time 0.1 s RV Ejection Time 0.3 s RV AcT/ET 0.3 FINDINGS Left Ventricle Normal left ventricular cavity size. Moderately decreased left ventricular systolic function. Left ventricular ejection fraction is estimated at 40 %. Moderate global hypokinesis. Abnormal septal motion consistent with conduction abnormality. Right Ventricle Normal right ventricular size and systolic function. Right ventricular systolic pressure 14.9 mmHg. Right Atrium Right atrium not well visualized. Normal right atrial size. Left Atrium Normal left atrial size. Mitral Valve Structurally normal mitral valve. No mitral valve stenosis. Trace mitral valve regurgitation. Aortic Valve Thickened trileaflet aortic valve. Mild aortic valve stenosis, velocity 2.4 m/s, peak gradient 23 mmHg, mean gradient 13.3 mmHg, TRUE 1.1 cm squared. No aortic valve regurgitation. Tricuspid Valve Structurally normal tricuspid valve. No tricuspid valve stenosis. Trace tricuspid valve regurgitation. Pulmonic Valve Pulmonic valve not well visualized. No pulmonary valve stenosis. Trace pulmonary valve regurgitation. Pericardium No pericardial effusion. Aorta Normal size aortic root and proximal ascending aorta. IVC Normal sized inferior vena cava. CONCLUSIONS 1. Normal left ventricular cavity size. Moderately decreased left ventricular systolic function. Left ventricular ejection fraction is estimated at 40 %. Moderate global hypokinesis. 2. Normal right ventricular size and systolic function. 3. Mild aortic valve stenosis, velocity 2.4 m/s, peak gradient 23 mmHg, mean gradient 13.3 mmHg, TRUE 1.1 cm squared. 4. No prior similar studies to compare. Beatrice Willson MD (Electronically Signed) Final Date: 17 February 2023 17:11 S
== END 2023-02-13 12:39 | disposition home or self-care (01) ==
PROVIDERS: PCP Family Medicine; Visit Provider Internal Medicine Cardiovascular Disease
DX: I50.9 Heart failure, unspecified (principal); R06.02 Shortness of breath; I35.0 Nonrheumatic aortic (valve) stenosis
CPT/HCPCS: 93306; 99204

== ENCOUNTER 2023-02-20 08:00 | Outpatient (CLI) | payer MEDICARE, MEDICAID, SELFPAY ==
--- NOTE | 2023-02-20 08:11 | NMCV_ITS ---
NM john perf SPECT r/s* [id number] Brandon Tuttle Age: 82 Gender: M : 1940 Exam Date: 02/20/2023 09:17 Ordering Phys: Beatrice Willson MD ([email or web address]) Technologist: ODETTE Hayes Exam Location: [facility] Indications: SHORTNESS OF BREATH, HEART FAILURE STRESS TEST [facility] IMAGE PROTOCOL Rest/Stress 1 Lexiscan Day Radiopharmaceutical Dose (mCi) Administration Site Administered by Rest: Tc-99m 11.0 IV ODETTE Hayes Sestamibi Stress:Tc-99m 32.6 IV ODETTE Hayes Sestamibi Rest: 20-Feb-2023 60 Discovery 630 Stress: 20-Feb-2023 30 Discovery 630 0.4mg Lexiscan. Supine position only as patient was unable to lay prone. SPECT RESULTS Technical Quality: Excellent Raw Data Analysis: Normal Image Corrections: No attenuation or motion correction applied Summed Stress Score: 1 Summed Rest Score: 6 Summed Difference Score: 1 PERFUSION FINDINGS SPECT images demonstrate homogeneous tracer distribution throughout the myocardium. FUNCTIONAL RESULTS (calculated via Gated SPECT) Stress Image LV EF (%): 57 Stress EDV (mL):145 TID: 1.06 Stress ESV (mL):63 FUNCTIONAL FINDINGS: The left ventricle is normal in size. Transient Ischemia Dilatation of 1.1. The left ventricular ejection fraction is normal with a value of 57%. There is normal left ventricular wall thickening. Normal end-diastolic and end-systolic volumes. IMPRESSIONS 1. Myocardial perfusion imaging is normal. 2. Overall left ventricular systolic function is normal without regional wall motion abnormalities, LVEF=57%. 3. EKG Portion of the study will be reported separately. 4. Scan indicates low risk for cardiac events. Beatrice Willson MD (Electronically Signed) Final Date: 21 February 2023 14:23 S
--- NOTE | 2023-02-20 08:11 | ECG_ITS ---
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 Interpretive Statements NAME OF STUDY: LEXISCAN SESTAMIBI STRESS TEST INDICATION: Dyspnea on Exertion PROCEDURE: At the baseline, the blood pressure was 137/87 mm Hg with a heart rate of 65 bpm. The electrocardiogram showed atrial fibrillation, low QRS voltage and LBBB. ??? The Lexiscan was infused over a period of 20 seconds. A total of 0.4 milligrams of Lexiscan was infused. The stress phase was continued for a total of 5 minutes. Heart rate at the end of the stress phase was 79 bpm with a blood pressure of 100/84 mm Hg. The EKG at the peak infusion revealed no significant ST-T wave changes. ??? Sestamibi was injected 20 seconds after the Lexiscan infusion. ??? Blood pressure at the end of the recovery phase was 115/93 mm Hg with a heart rate of 75 beats per minute. ??? CONCLUSION: 1. No significant EKG changes with the LexiScan infusion. 2. No LexiScan induced chest pain or cardiac arrhythmia. 3. Normal blood pressure and heart rate response. 4. Sestamibi/sestamibi perfusion scan pending; see separate report. Electronically Signed On 02-23-2023 9:00:23 CDT by Beatrice Willson M.D. [id number]
[2023-02-20 08:25] VITALS: BMI 40.8
[2023-02-20] MEDS: regadenoson 0.4 Mg/5 ml Syringe IVP (10:18)
[2023-02-20 11:24] VITALS: BP 115/93; PULSE 76
== END 2023-02-20 08:01 | disposition home or self-care (01) ==
PROVIDERS: PCP Family Medicine; Visit Provider Internal Medicine Cardiovascular Disease
DX: I50.9 Heart failure, unspecified (principal); R06.02 Shortness of breath
CPT/HCPCS: 36415; 78452; 93017; 96374; A9500; J2785

== ENCOUNTER 2023-03-06 13:01 | Outpatient (CLI) | payer MEDICARE, MEDICAID, SELFPAY ==
--- NOTE | 2023-03-06 13:30 | USCV_ITS ---
Brandon Tuttle Age: 82 Gender: M : 1940 Exam Date: 03/06/2023 13:43 Ordering Phys: Beatrice Willson MD ([email or web address]) Technologist: OSCAR [place] [facility] [place]: Assess LV function BP: 120 / 80 HR: 83 Rhythm: Sinus Technical Quality: Suboptimal MEASUREMENTS (Male / Female) Normal Values 2D ECHO LVOT Diameter 2.0 cm LV Ejection Fraction MOD 2C 39.9 % LV Ejection Fraction 2C AL 41.2 % LA Diameter 3.7 cm LA Width 3.9 cm LA Height 6.8 cm RA Width 3.7 cm RA Height 5.7 cm Aorta at Sinotubular Diameter 2.7 cm M-MODE Aortic Annulus Diameter 3.4 cm LA Ao Ratio MM 1.0 MV E Point Septal Separation 1.2 cm DOPPLER Right Atrial Pressure 8.0 mmHg FINDINGS Left Ventricle Normal left ventricular size and mildly decreased left ventricular systolic function. Left ventricular ejection fraction is estimated at 50-55 %. Mild global hypokinesis. Rhythm precludes evaluation of diastolic function. Abnormal septal motion consistent with conduction abnormality. Right Ventricle Normal right ventricular size and systolic function. Right Atrium Normal right atrial size. Left Atrium Mildly increased left atrial size. Mitral Valve Structurally normal mitral valve. Aortic Valve Aortic valve not well visualized. Tricuspid Valve Structurally normal tricuspid valve. Pulmonic Valve Pulmonic valve not well visualized. Pericardium No pericardial effusion. Aorta Aorta not well visualized. IVC Inferior vena cava not visualized. CONCLUSIONS 1. This is a difficult study. Optison was used per protocol. 2. Normal left ventricular size and mildly decreased left ventricular systolic function. Left ventricular ejection fraction is estimated at 50-55 %. Mild global hypokinesis. Beatrice Willson MD (Electronically Signed) Final Date: 13 March 2023 21:46 S
[2023-03-06] MEDS: perflutren protein-a microsphr 0.22 mg/mL SDV 3 mL IV (14:18)
== END 2023-03-06 13:02 | disposition home or self-care (01) ==
PROVIDERS: PCP Family Medicine; Visit Provider Internal Medicine Cardiovascular Disease
DX: I50.9 Heart failure, unspecified (principal); R06.02 Shortness of breath
CPT/HCPCS: C8924; Q9956

== ENCOUNTER 2023-03-20 15:14 | Outpatient (CLI) | payer MEDICARE, MEDICAID, SELFPAY ==
[2023-03-20 17:13] LABS: Anion Gap 14.8 (5-19); Blood Urea Nitrogen 33 mg/dL (8-23); Calcium 9.4 mg/dL (8.5-10.5); Carbon Dioxide 29 mmol/L (22-29); Chloride 96 mmol/L (98-107); Glucose 111 mg/dL (65-115); Magnesium 2.1 mg/dL (1.7-2.3); NT Pro B Type Natriuretic Pept 232 pg/mL (0-450); Osmolality Calculated 290 mOsm/kg (285-295); Potassium 3.8 mmol/L (3.5-5.1); Sodium 136 mmol/L (136-145)
== END 2023-03-20 15:15 | disposition home or self-care (01) ==
LOC: LAB 15:18
PROVIDERS: Visit Provider Internal Medicine Cardiovascular Disease
DX: I48.91 Unspecified atrial fibrillation (principal); I50.9 Heart failure, unspecified; R06.02 Shortness of breath
CPT/HCPCS: 36415; 80048; 83735; 83880

== ENCOUNTER → 2023-04-23 13:58 | Outpatient (BNVA) | payer MEDICARE, MEDICAID, SELFPAY | PROVIDERS: PCP Family Medicine; Visit Provider Internal Medicine Cardiovascular Disease | DX: Z01.810 Encounter for preprocedural cardiovascular examination (principal); M48.062 Spinal stenosis, lumbar region with neurogenic claudication; R06.02 Shortness of breath; I48.91 Unspecified atrial fibrillation; I50.9 Heart failure, unspecified; Z79.01 Long term (current) use of anticoagulants | CPT/HCPCS: 99214 ==

== ENCOUNTER → 2023-04-24 14:19 | Outpatient (BNVA) | payer MEDICARE, MEDICAID, SELFPAY | PROVIDERS: PCP Family Medicine; Visit Provider Orthopaedic Surgery | DX: M48.062 Spinal stenosis, lumbar region with neurogenic claudication (principal); Z98.1 Arthrodesis status; M43.16 Spondylolisthesis, lumbar region; M96.1 Postlaminectomy syndrome, not elsewhere classified | CPT/HCPCS: 36415; 72100; 80053; 81003; 85025; 99214 ==

== ENCOUNTER 2023-05-14 07:25 | Day surgery (SDC) | payer MEDICARE, MEDICAID, SELFPAY ==
[2023-05-14 08:08] VITALS: BMI 41.8
[2023-05-14 08:16] VITALS: BP 141/84; PULSE 62; RESP 16; TEMP 36.3; O2SAT 97
--- NOTE | 2023-05-14 08:37 | ANES.PREANE2 ---
Pre-Anesthetic Assessment Height/Weight: Height 1.73 m Weight 124.738 kg Temp Pulse Resp BP Pulse Ox O2 Del Method 97.4 F L 62 16 141/84 97 Room Air 05/14/23 08:16 05/14/23 08:16 05/14/23 08:16 05/14/23 08:16 05/14/23 08:16 05/14/23 08:16 Preop Diagnosis: Painful Hardware Lumbar spine Operation Date: 05/14/23 09:40 Proposed Procedures p Hardware Removal Lumbar(Not Applicable) - Alex Orona, Familial anesthetic complications: None Was Beta Pilar taken within 24 hours: N/A Was Clonidine taken within 24 hours: N/A Last intake: Intake Last Liquid Date 05/14/23 Last Liquid Time 19:30 Last Solid Date 05/13/23 Last Solid Time 19:30 Social No alcohol and No tobacco Exam alert, oriented x 3, clear to auscultation bilaterally and regular rate & rhythm Airway Mallampati: Class III Dentition: full CV/HEM Atrial Fibrillation and Congestive Heart Failure Mild Anesthetic Plan ASA status: 3 Anesthesia: General Risk of > 500 ml blood loss (7ml/kg in children): No Other Pertinent Information daughter states his pain medications don't work well for him Medications/Allergies Home Medications Medication Instructions Recorded Confirmed Last Taken Type acetaminophen 325 mg tablet 325 mg PO QID PRN Pain 12/15/19 05/13/23 06/11/22 History (Tylenol) lisinopril 20 mg tablet 20 mg PO DAILY 12/15/19 05/13/23 05/13/23 History potassium chloride 10 mEq 10 meq PO .every other day #90 tabs 04/15/23 05/13/23 05/13/23 Rx tablet,extended release apixaban 5 mg tablet (Eliquis) 5 mg PO BID 04/23/23 05/14/23 05/12/23 08:00 History spironolactone 25 mg tablet 25 mg PO DAILY #90 tabs 04/23/23 05/13/23 05/13/23 Rx Allergies Allergy/AdvReac Type Severity Reaction Status Date / Time No Known Allergies Allergy Verified 05/13/23 12:48 [facility] Anesthesia Medical History Atrial fibrillation CHF (congestive heart failure) CHF (congestive heart failure), NYHA class III Intervertebral disc disorders with radiculopathy, lumbar region Lumbar post-laminectomy syndrome Lumbar stenosis with neurogenic claudication Otitis media Post-operative state Postlaminectomy syndrome Spondylolisthesis, lumbar region Spondylosis without myelopathy or radiculopathy, lumbar region Surgical History History of lumbar surgery (~12/02/14) L5-S1 PLIF with methylmethacrylate pedicle screw augmentation, Dr. Albrecht History of sacroiliac joint dysfunction stereotactic guided left sacroiliac joint arthrodesis with instrumentation, Dr. De León, 12/2018 S/P cataract surgery Status post insertion of spinal cord stimulator 01/13/2020 Dr. Ugo Ramires: Thoracic laminotomy, placement of intraspinal, epidural paddle electrode arrays and placement of subcutaneous programmable pulse generator. 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
== END 2023-05-14 09:00 | disposition home or self-care (01) ==
PROVIDERS: PCP Family Medicine; Visit Provider Orthopaedic Surgery
DX: Z53.8 Procedure and treatment not carried out for other reasons (principal)

== ENCOUNTER 2023-05-23 16:03 | Inpatient (IN) | payer MEDICARE, MEDICAID, SELFPAY ==
[2023-05-23] VITALS (24 sets, daily range): BP systolic 126–169; BP diastolic 64–119; PULSE 55–95; RESP 14–18; TEMP 36.1–36.4; O2SAT 88–100
--- NOTE | 2023-05-23 | XR_ITS ---
WS: [id number] Exam: XR lumbar spine 1V port 60883 Date/Time of Exam: 05/23/2023 12:00 AM Reason For Exam: PANKAJ REPORTS C-arm image of the lower lumbar spine was obtained for intraoperative purposes.
[2023-05-23] MEDS: sodium chloride 0.9% 1,000 ML 30 ML IV (09:06)
--- NOTE | 2023-05-23 09:25 | P.ANESUD_ITS ---
Pre-Anesthetic Update Pre-Anesthetic Assessment: Date of Surgery/Procedure: 05/23/23 Preop Elizabeth gnosis: Failed Hardware Lumbar spine Proposed Procedure: Operation Date: 05/23/23 10:05 Proposed Procedures p Hardware Removal Lumbar(Not Applicable) - Alex Orona, DO Any changes to Pre-Anesthetic Assessment?: No Last Intake: Intake Last Liquid Date 05/22/23 Last Liquid Time 19:00 Last Solid Date 05/22/23 Last Solid Time 19:00 Vitals: Temperature 97.2 F L 05/23/23 08:08 Temperature Source Temporal Artery S can 05/23/23 08:08 Pulse Rate 72 05/23/23 08:08 Respiratory Rate 18 05/23/23 08:08 Blood Pressure 159/119 05/23/23 08:08 Blood Pressure Luli n 132 05/23/23 08:08 Pulse Oximetry 97 05/23/23 08:08 Oxygen Delivery Me thod Room Air 05/23/23 08:49 Exam: Pre-Anes Outpt Exam: alert, oriented x 3, clear to auscultation bilaterally and regular rate & rhythm Cardiac Studies: Echocardiogram 03/06/23 Sestamibi Stress Test (Cardiology) 02/20
--- NOTE | 2023-05-23 10:30 | W.PM.OPSUD ---
Surgery/Procedure H&P Update DATE OF PROCEDURE: May 23, 2023 DATE H&P PERFORMED: 05/07/23 H&P UPDATE INFORMATION: I have reviewed H&P completed within last 30 days, I have examined patient prior to procedure and No changes to prior documentation PREOP DIAGNOSIS: Failed Hardware Lumbar spine PLANNED PROCEDURE: Operation Date: 05/23/23 10:05 Proposed Procedures p Hardware Removal Lumbar(Not Applicable) - Alex Orona DO
[2023-05-23] MEDS: ceFAZolin 2,000 MG in sodium chloride 0.9% (plus) 50 ML 100 MG IV ×2 (10:59→18:37)
[2023-05-23] MEDS: ceFAZolin 1,000 mg SDV 1000 MG IVP (10:59)
[2023-05-23] MEDS: lidocaine-epi 2% 20 mL INJ INJECTION (11:42)
[2023-05-23] MEDS: vancomycin 1,000 MG SDV 1000 MG XX (11:56)
[2023-05-23] MEDS: fentaNYL 50 mcg/mL INJ 2mL IVP ×2 (13:04→13:20)
--- NOTE | 2023-05-23 13:06 | P.OP_ITS ---
Operative Report Date of procedure: May 23, 2023 Pre-op diagnosis: Painful hardware and lumbar spine Procedure done: Removal of deep hardware from spine lumbar spine Surgeon: Alex Orona DO Estimated blood loss (mL): 200 Procedure: Removal of hardware from lumbar spine Patient brought the operative suite after going anesthesia was placed in prone position. All areas impingement were well-padded. Patient's prepped and draped in a sterile fashion. Skin incision is made using previous skin incision d issection was made down to the screws. The hardware was identified the cross- link was identified screws were looped loose and the caps were taken off the cross-link was removed the rods were removed. Then the screws were removed the L5 screws the S1 screws on the right was removed however the left 1 screwdriver broke and tried to remove the screw with placing a minh with a cap and it and the screw head was loose and could not get the screw. At this point I felt it was better to just leave that one screw in in order to decrease trauma to the area. Wounds were irrigated deep drain was placed wound was closed in layered fashion with 0 Vicryl 2-0 Vicryl and Monocryl suture. Sterile dressings were applied patient transferred to the PACU in stable condition.
[2023-05-23] MEDS: morphine 4 mg/mL SDV 1 mL 2 MG IVP (14:02)
[2023-05-23] MEDS: ondansetron 2 mg/ML SDV 2 mL 4 MG IVP ×2 (14:02→15:12)
[2023-05-23] MEDS: ketorolac 30 mg/mL INJ IVP (14:02)
[2023-05-23] MEDS: HYDROcodone-acetaminophen 5-325 mg Tablet PO ×3 (14:03→23:12)
[2023-05-23] MEDS: lactated ringers 1,000 ML 90 ML IV (14:03)
--- NOTE | 2023-05-23 16:18 | PC.NURSE ---
Report given to Vanessa on [facility]. Pt placed in room 260. Family accompanied us to new room. Pt and family oriented to room and call light. No needs identified at this time, table and call light in reach. Pt states pain has mostly resolved. Dressing CDI, hemavac in place and compressed.
--- NOTE | 2023-05-23 16:39 | ANE.PACU2 ---
Inpatient post-anesthesia follow up: Airway intact: Yes Vital signs: Temperature 97 F Pulse Rate 70 Respiratory Rate 18 Blood Pressure 158/94 Pulse Oximetry 92 Oxygen Delivery Me thod Nasal Cannula Oxygen Flow Rate 2 Fraction of Inspir ed Oxygen Hydration adequate: Yes Nausea and vomiting: No Mental status: Baseline
[2023-05-23] MEDS: docusate sodium 100 mg Capsule PO (17:52)
[2023-05-24 00:25] VITALS: BP 116/72; PULSE 59; RESP 18; TEMP 36.4; O2SAT 96
[2023-05-24] MEDS: ceFAZolin 2,000 MG in sodium chloride 0.9% (plus) 50 ML 100 MG IV (03:46)
[2023-05-24 04:49] VITALS: BP 120/60; PULSE 58; RESP 18; TEMP 36.4; O2SAT 97
[2023-05-24 08:00] VITALS: BP 111/68; PULSE 52; RESP 17; TEMP 36.3; O2SAT 94
[2023-05-24 08:20] VITALS: RESP 18; O2SAT 94
[2023-05-24] MEDS: lisinopril 20 mg Tablet PO (08:50)
[2023-05-24] MEDS: spironolactone 25 mg Tablet PO (08:51)
[2023-05-24] MEDS: potassium chloride ER 10 mEq Tablet PO (08:51)
--- NOTE | 2023-05-24 09:15 | PM.DCS ---
Discharge Providers Date of Admission: 05/23/23 16:03 Date of Discharge: May 24, 2023 Attending Provider at Admission: Alex Orona DO Attending Provider at Discharge: Alex Orona DO Primary Care Provider: Damon Edmonds Reason for Visit Reason for Visit: M48.062, M96.1 Discharge Data Studies Completed and Pending Pending at discharge Category Date Time Status C-arm Fluoroscopy 57044 Routine Exams 05/23/23 08:08 Taken Vitals Last Vital Signs Temp 97.4 F L 05/24/23 08:00 Pulse 52 L 05/24/23 08:00 Resp 18 05/24/23 08:20 BP 111/68 05/24/23 08:00 Pulse Ox 94 05/24/23 08:20 O2 Del Method Room Air 05/24/23 08:20 O2 Flow Rate 2 05/23/23 17:26 Discharge Plan Discharge Patient Disposition: Home Condition: Stable Prescriptions: New oxycodone 5 mg tablet 5 mg PO Q4H PRN (Reason: pain) 7 Days Qty: 40 0RF Continued lisinopril 20 mg tablet 20 mg PO DAILY acetaminophen [Tylenol] 325 mg tablet 325 mg PO QID PRN (Reason: Pain) Eliquis 5 mg tablet 5 mg PO BID spironolactone 25 mg tablet 25 mg PO DAILY Qty: 90 2RF potassium chloride 10 mEq tablet extended release 10 meq PO .every other day Qty: 90 3RF Discharge Orders: Discharge Order (Routine); Ordered 05/24/23 Ordered By: Alex Orona Discharge Diet: Advance as tolerated Discharge Activity: Limit activity as instructed Patient Instructions: Opioid Safety Activity Restrictions/Additional Instructions: Thank you for [facility] for your care! The following is a list of instructions, from your provider, to follow upon your discharge to ensure you have the optimal recovery from your recent injury orsurgery. Follow-up care is a devine part of your treatment and safety. Be sure to make and go to all appointments, and call your doctor if you are having problems. If you do not already have a follow-up appointment made, call Dr. Orona office in the next 1-3 days to make follow up appointment for 2 weeks at [phone]. It is also a good idea to know your test results and keep a list of the medicines you take. Medications will be prescribed for you at your provider's discretion. These medications are to be used as instructed; if they are taken more often that prescribed they will not be refilled early and in most cases will not be refilled at all. > When a refill is needed,you should contact [facility] [place] 2-3 business days before your prescription runs out. Medications will NOT be refilled by regional owner operator truck driver providers after hours! > Many pain medications contain Tylenol (Acetaminophen). Do not consume more than 4,000 mg of Tylenol per day in total with any combination ofmedications. > Pain medications can cause constipation. Please use an over the counter stool softener as directed, while taking pain medications. Consulty our local pharmacist with questions or recommendations on stool softeners. If constipation persists, contact our office or your primary care provider. > While under our care,you are not to receive pain medications or other controlled substances from any other provider unless our office is notified and approves. Any attempts to do so will result in refusal to prescribe any further pain medications and possible dismissal from our practice. ? Your wound and/or dressing should remain clean and dry for 2 days after surgery. On postoperative day 2 (48 hours after your surgery) the dressing (if present) should be removed and it is okay to shower and get the incision wet. Pad dry afterwards. No further dressing should be required from that point on. Do not put any creams or ointments on theincision > It is normal for there to be a small amount of discharge (bloody or blood tinged) present from a surgical wound for the first 1-3days. > The wound should be examined twice a day for signs of infection. Mild redness or bruising is to be expected but indications that an infection maybe starting would include; An increase in redness, swelling, or discharge, a foul odor present around the incision, and/or a fever greater than 101 ?F ? Showering is permitted, however we ask that you do not take a bath, sit in a whirlpool / Jacuzzi, or go swimming for 1 month. For only the first 2 days after surgery, lt wilt be necessary for you to cover your wound/dressing with plastic and tape to keep it dry. ? Walking is essential for the healing process after surgery. We would like you to slowly advance your walking. This should be done on relatively flat clear ground (inside or out) or can be done on a treadmill. Remember this goal does not have to happen all at once, slowly increase your distance and duration. This can be broken into more more than one walk per day as tolerated. Patients who walk as directed after surgery rarely require Physical Therapy. In the unlikely event this issue arises your provider will direct hospital staff to make the appropriate arrangements. ? No lifting over 5 pounds {a gallon of milk) or bending/twisting until further notice. Each of these activities places an unnecessary amount of stress onto the body and can impede the delicate healing process. > Instead of bending at the waist, keep your back straight and bend at the knees. > Instead of twisting your torso, keep your back straight and turn your entire body with your feet. ? You may sleep in any position which makes you comfortable. Many patients find comfort sleeping in a reclining chair. It is not abnormal to have difficulty sleeping for the first several weeks following your surgery. We recommend trying Benadry! or Tylenol PM as directed to help with your sleeping difficulties. Both medications are over the counter and available withoutprescription. ? NO SMOKING!!! Smoking dramatically increases the probability of developing postoperative wound infections. ? Common complaints after lumbar and/or thoracic spine surgery include, but are not limited to: numbness and/or tingling in the legs, pain around the incision and surrounding tissues, muscle spasms, or stiffness of the middle to low back. Contact our office if these symptoms persist or if an acute change occurs. ? No driving for the first 3-5days, and not while taking narcotics [] until seen at your follow-up appointment and cleared. There are no restrictions for riding on short trips, however if you take a longer trip, arrangements should be made to make regular stops to get out of the vehicle and stretch . ? Swelling is an unfortunate event that will take place with any surgery and is the primary source of your postoperative discomfort. While walking and regular approved activities helps control inflammation, there are additional steps you can take to minimizeswelling. > Place ice over the surgical site and surrounding tissue for twenty minutes, followed by applying a low/medium heat (heating pad) for an additional twenty minutes every 1-2 hours as needed for painrelief. > You may use of over the counter anti-inflammatory medications (Ibuprofen, Motrin, Aleve, Advil, etc) as directed on the package label. These types of medicines wm significantly reduce the amount of discomfort you experience after surgery from swelling. It should be noted that if you have and allergy to any of these medications, or a history of ulcers or kidney disease you should consult you primary care provider prior to starting these medications. Discharge Attestations Time Spent in Discharge Care*: less than 30 min Quality Metrics Clinical Quality Measures [ No reported AMI, CVA or VTE this stay] Coding Level of Care Code Acute Code for Chg Fwd Diagnoses
[2023-05-24] MEDS: HYDROcodone-acetaminophen 5-325 mg Tablet PO (10:23)
[2023-05-24 13:16] VITALS: RESP 18; O2SAT 94
== END 2023-05-24 10:55 | disposition home or self-care (01) | DRG 517 ==
LOC: MEDSURG 16:03
PROVIDERS: Admitting Provider Orthopaedic Surgery; PCP Family Medicine; Visit Provider Orthopaedic Surgery
PROC: 0SP004Z Removal of Internal Fixation Device from Lumbar Vertebral Joint, Open Approach (ICD-10-PCS; principal; 2023-05-23 09:55)
DX: T84.84XA Pain due to internal orthopedic prosthetic devices, implants and grafts, initial encounter (principal); Y83.1 Surgical operation with implant of artificial internal device as the cause of abnormal reaction of the patient, or of later complication, without mention of misadventure at the time of the procedure
CPT/HCPCS: 72020; 76000; 97161; 97530; J0330; J0690; J1100; J1885; J2270; J2405; J2704; J2710; J3010; J3370; J3490; J3535; J7030; J7120

== ENCOUNTER → 2023-05-29 14:39 | Outpatient (BNVA) | payer MEDICARE, MEDICAID, SELFPAY | PROVIDERS: PCP Family Medicine; Visit Provider Physician Assistant | DX: Z47.89 Encounter for other orthopedic aftercare (principal) | CPT/HCPCS: 99024 ==

== ENCOUNTER → 2023-07-31 15:33 | Outpatient (BNVA) | payer MEDICARE, MEDICAID, SELFPAY | PROVIDERS: PCP Family Medicine; Visit Provider Orthopaedic Surgery | DX: M48.062 Spinal stenosis, lumbar region with neurogenic claudication (principal); M96.1 Postlaminectomy syndrome, not elsewhere classified | CPT/HCPCS: 99024 ==

== ENCOUNTER 2023-09-15 09:45 | Outpatient (CLI) | payer MEDICARE, MEDICAID, SELFPAY ==
--- NOTE | 2023-09-15 09:53 | CT_ITS ---
WS: [id number] CT MYELOGRAM LUMBAR SPINE HISTORY: LUMBAR PAIN/SPINAL STENOSIS OF LSPINE REGION TECHNIQUE: Contiguous 2.5 mm axial imaging performed from T12 through the mid sacral level. Bone and soft tissue windows reviewed. Sagittal and coronal reformats are submitted and reviewed. DLP: 894.[address] scans at [facility] use at least one of these dose optimization techniques: automated e xposure control; mA and/or kV adjustment per patient size (includes targeted exams where dose is matc hed to clinical indication); or iterative reconstruction. COMPARISON: 10/24/2020 Since the prior myelogram posterior fusion connecting rods have been removed. Pedicle screws at L4 kamara ve been removed and tracts are identified. LEFT L5 pedicle screw has also been removed. Interbody spa cers are reidentified at L4-5 and L5-S1. The RIGHT L5 pedicle screw remains present. No lucency aroun d the screw. Reidentified are the LEFT sacroiliac fixation screws. L2 anterolisthesis by 4 mm. Vacuum disc phenomenon at L2-3 and L3-4. L1-L2: Osteophytic ridging and annular disc bulging. Disc and osteophyte encroachment upon the thecal sac and RIGHT foramen. Mild RIGHT foraminal stenosis. L2-L3: Marked annular disc bulging effacing the ventral thecal sac. Reidentified is a proximal forami nal disc protrusion contacting the exiting RIGHT L2 nerve root. I do believe there has been a slight progression in the disc contacting the RIGHT lateral thecal sac and foraminal encroachment. Patent LE FT foramen. No central stenosis. Bilateral facet arthritis and ligamentum flavum hypertrophy. L3-L4: Mild diffuse annular disc bulging. Facet joint arthritis encroaching upon the lateral aspect o f the thecal sac. Mild ligamentum flavum hypertrophy. Very mild central stenosis predominantly due to facet joint arthritis encroaching centrally. Moderate bilateral foraminal stenosis, LEFT greater srini n RIGHT due to disc and osteophyte disease. L4-L5: Patulous thecal sac with a large posterior laminectomy defect. There is significant bony hyper trophy on the LEFT causing significant encroachment upon the LEFT foramen. No RIGHT foraminal stenosi s. Bony fusion across the LEFT L4-5 facet joints. L5-S1: Mild annular disc bulging. No central or foraminal stenosis. No change LEFT SI joint screws. Bony fusion across a portion of the RIGHT SI joint. Moderate ectasia and atherosclerosis abdominal aorta. IMPRESSION: 1. Interval removal of the pedicle screws and vertical rods at L4 and on the LEFT at L5. RIGHT L5 pe dicle screw remains. 2. L4-5: Bony hypertrophy on the LEFT at L4-5 encroaching upon the LEFT foramen with moderate stenos is. Minimal progression since the prior study. 3. L3-4: Mild central stenosis at L3-4 with moderate bilateral foraminal stenosis, LEFT greater than RIGHT due to disc and osteophyte disease. 4. L2-3: Proximal LEFT foraminal disc protrusion on the RIGHT with slight progression. Disc protrusi on contacts the RIGHT lateral thecal sac and foramina. Mild disc contact on the RIGHT L2 nerve root. No central stenosis. 5. L2 anterolisthesis by 4 mm.
--- NOTE | 2023-09-15 09:53 | IR_ITS ---
WS: [id number] LUMBAR MYELOGRAM HISTORY: LUMBAR PAIN COMPARISON: Prior myelogram 10/24/2020 FLUOROSCOPY TIME: 2min [id number] # of spot films: 7 Procedure, risks and complications were explained to the patient. Risks including bleeding, infection , headaches, allergic reaction and seizures. Consent has been obtained. With the patient in prone position the skin over the lumbar region is cleansed with ChloraPrep and an esthetized with lidocaine. 22-gauge spinal needle is inserted into the thecal sac at the appropriate level determined by fluoroscopy. Omnipaque 240; 12 ml is injected slowly under fluoroscopy with no co mplications. Needle bevel is perpendicular to the longitudinal fibers of the dura. Stylet is reinsert ed prior to removal of the needle. Patient tolerated the procedure well. Patient will proceed to CT f or further evaluation. Quality the examination is compromised by body habitus. Contrast is noted injected into the thecal sa c. There is narrowing of the thecal sac at L3-4 and L4-5. Vertical rods and pedicle screws have been removed at L4 and on the LEFT of L5. Disc spacers are narrowed. Hypertrophic bone formation on the LE FT at L4-5 and L5-S1. LEFT sacral fusion screws are reidentified unchanged in position. Moderate atherosclerotic plaque abdominal aorta. IMPRESSION: Uncomplicated lumbar myelogram prior to CT. Mild narrowing of the central canal at L3-4 and L4-5. Please see CT report to follow for further deta ils.
== END 2023-09-15 09:46 | disposition home or self-care (01) ==
LOC: RAD 09:47
PROVIDERS: PCP Family Medicine; Visit Provider Orthopaedic Surgery
DX: M48.061 Spinal stenosis, lumbar region without neurogenic claudication (principal); M51.26 Other intervertebral disc displacement, lumbar region; M47.816 Spondylosis without myelopathy or radiculopathy, lumbar region
CPT/HCPCS: 62304; 72132; Q9966

== ENCOUNTER → 2023-10-07 14:59 | Outpatient (BNVA) | payer MEDICARE, MEDICAID, SELFPAY | PROVIDERS: PCP Family Medicine; Visit Provider Orthopaedic Surgery | DX: M48.062 Spinal stenosis, lumbar region with neurogenic claudication (principal) | CPT/HCPCS: 99024 ==

== ENCOUNTER → 2023-10-21 11:49 | Outpatient (BNVA) | payer MEDICARE, MEDICAID, SELFPAY | PROVIDERS: PCP Family Medicine; Visit Provider Orthopaedic Surgery | DX: M48.062 Spinal stenosis, lumbar region with neurogenic claudication (principal); M54.9 Dorsalgia, unspecified; Z98.890 Other specified postprocedural states | CPT/HCPCS: 36415; 72110; 80053; 81003; 85025; 99214 ==

== ENCOUNTER → 2023-10-28 08:04 | Outpatient (BNVA) | payer MEDICARE, MEDICAID, SELFPAY | PROVIDERS: PCP Family Medicine; Visit Provider Family Medicine | DX: Z01.818 Encounter for other preprocedural examination (principal); I48.91 Unspecified atrial fibrillation; I21.19 ST elevation (STEMI) myocardial infarction involving other coronary artery of inferior wall | CPT/HCPCS: 93005 ==

== ENCOUNTER → 2023-11-03 13:07 | Outpatient (BNVA) | payer MEDICARE, MEDICAID, SELFPAY | PROVIDERS: PCP Family Medicine; Visit Provider Internal Medicine Cardiovascular Disease | DX: I48.91 Unspecified atrial fibrillation (principal); I50.9 Heart failure, unspecified; Z01.810 Encounter for preprocedural cardiovascular examination; Z79.01 Long term (current) use of anticoagulants | CPT/HCPCS: 99214 ==

== ENCOUNTER 2023-11-26 14:02 | Inpatient (IN) | payer MEDICARE, MEDICAID, SELFPAY ==
[2023-11-26] VITALS (35 sets, daily range): BP systolic 98–162; BP diastolic 63–101; PULSE 70–113; RESP 8–22; TEMP 36.1–36.7; O2SAT 91–100; BMI 43.0; BMI 44.5
--- NOTE | 2023-11-26 | XR_ITS ---
WS: [id number] Lumbar spine, C-arm fluoroscopy views, 11/26/2023 Clinical Data: PANKAJ PICS Comparison: Lumbar spine, 10/21/2023 Findings: Dr. Orona performed a lumbosacral posterior fusion. XR/XR lumbar spine 2-3V* [id number] Impression: Posterior lumbosacral fusion.
[2023-11-26] MEDS: sodium chloride 0.9% 1,000 ML 30 ML IV (09:20)
[2023-11-26] MEDS: methadone 10 mg Tablet PO (09:20)
--- NOTE | 2023-11-26 10:14 | P.ANESASSM_ITS ---
Pre-Anesthetic Assessment Height/Weight: Height 1.73 m Weight 128.367 kg Temp Pulse Resp BP Pulse Ox O2 Del Method 97.5 F L 70 19 H 136/95 94 Room Air 11/26/23 09:25 11/26/23 09:25 11/26/23 09:25 11/26/23 09:25 11/26/23 09:25 11/26/23 09:26 Preop Diagnosis: Nonunion lumbar spine Operation Date: 11/26/23 10:30 Proposed Procedures p Spinal Fusion(Not Applicable) - Alex Orona DO s Lumbopelvic Fixation(Not Applicable) - Alex Orona DO s Sacroiliac Joint Fusion SI Joint Fusion(Right) - Alex Orona DO Familial anesthetic complications: none Was Beta Pilar taken within 24 hours: N/A Was Clonidine taken within 24 hours: N/A Last intake: Intake Last Liquid Date 11/25/23 Last Liquid Time 00:00 Last Solid Date 11/25/23 Last Solid Time 20:00 Social No alcohol and No tobacco Exam alert, oriented x 3, clear to auscultation bilaterally and regular rate & rhythm Airway Submandibular: within normal limits Cervical ROM: within normal limits Mallampati: Class II Dentition: full CV/HEM Atrial Fibrillation, Arrythmia, Congestive Heart Failure (EF 50%) and Hypertension Metabolic Morbid Obesity Musc/skel Lower Back Pain and Osteoarthritis/DJD Anesthetic Plan ASA status: 3 Anesthesia: General Other: Discussed a.line and transfusion. Medications/Allergies Home Medications Medication Instructions Recorded Confirmed Last Taken Type acetaminophen 325 mg tablet 325 mg PO QID PRN Pain 12/15/19 11/25/23 06/11/22 History (Tylenol) lisinopril 20 mg tablet 20 mg PO DAILY 12/15/19 11/25/23 11/25/23 History apixaban 5 mg tablet (Eliquis) 5 mg PO BID 04/23/23 11/25/23 11/22/23 History enoxaparin 120 mg/0.8 mL 120 mg (0.8 mL) SUBCUT Q12H #5 mL 11/11/23 11/25/23 11/23/23 Rx subcutaneous syringe Allergies Allergy/AdvReac Type Severity Reaction Status Date / Time No Known Allergies Allergy Verified 11/25/23 13:31 Current Medications Generic Name Dose Route Start Last Admin Trade Name Freq PRN Reason Stop Dose Admin Sodium Chloride 1,000 mls @ 30 mls/hr 11/26/23 09:00 11/26/23 09:20 Sodium Chloride 0.9% IV 11/27/23 08:59 30 mls/hr .Q24H SATURNINO Administration PFSH Anesthesia Medical History CHF (congestive heart failure), NYHA class III Spondylosis without myelopathy or radiculopathy, 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 Ugo Ramires: Thoracic laminotomy, placement of intraspinal, epidural paddle electrode arrays and placement of subcutaneous programmable pulse generator. History of sacroiliac joint dysfunction stereotactic guided left sacroiliac joint arthrodesis with instrumentation, Maryann De León, 12/2018 History of lumbar surgery (~12/02/14) L5-S1 PLIF with methylmethacrylate pedicle screw augmentation, Dr. 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
--- NOTE | 2023-11-26 10:45 | P.HP_ITS ---
Same Day Surgery H&P Indication for Procedure/HPI DATE OF PROCEDURE: November 26, 2023 CHIEF COMPLAINT/INDICATIONFOR SURGICAL PROCEDURE: Back pain PREOP DIAGNOSIS: Nonunion lumbar spine PLANNED PROCEDURE: Operation Date: 11/26/23 10:30 Proposed Procedures p Spinal Fusion(Not Applicable) - Alex Orona DO s Lumbopelvic Fixation(Not Applicable) - Alex Orona DO s Sacroiliac Joint Fusion SI Joint Fusion(Right) - Alex Orona DO Medications/Allergies* Home Medications Medication Instructions Recorded Confirmed Type acetaminophen 325 mg tablet 325 mg PO QID PRN Pain 12/15/19 11/25/23 History (Tylenol) lisinopril 20 mg tablet 20 mg PO DAILY 12/15/19 11/25/23 History apixaban 5 mg tablet (Eliquis) 5 mg PO BID 04/23/23 11/25/23 History Allergies/Adverse Reactions Allergy/AdvReac Type Severity Reaction Status Date / Time No Known Allergies Allergy Verified 11/25/23 13:31 Current Medications: Generic Name Dose Route Start Last Admin Trade Name Freq PRN Reason Stop Dose Admin Sodium Chloride 1,000 mls @ 30 mls/hr 11/26/23 09:00 11/26/23 09:20 Sodium Chloride 0.9% IV 11/27/23 08:59 30 mls/hr .Q24H SATURNINO Administration Pertinent History/Comorbid Conditions* Medical History (Updated 10/21/23 @ 13:46 by Alex Orona DO) CHF (congestive heart failure), NYHA class III Spondylosis without myelopathy or radiculopathy, 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 Ugo Ramires: Thoracic laminotomy, placement of intraspinal, epidural paddle electrode arrays and placement of subcutaneous programmable pulse generator. History of sacroiliac joint dysfunction stereotactic guided left sacroiliac joint arthrodesis with instrumentation, Dr. De León, 12/2018 History of lumbar surgery (~12/02/14) L5-S1 PLIF with methylmethacrylate pedicle screw augmentation, Dr. 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
[2023-11-26] MEDS: ceFAZolin 2,000 MG in sodium chloride 0.9% (plus) 50 ML 100 MG IV (11:05)
[2023-11-26] MEDS: ceFAZolin 1,000 mg SDV 1000 MG IVP (11:05)
[2023-11-26] MEDS: lidocaine-epi 1% 20 mL INJ INJECTION (12:44)
[2023-11-26] MEDS: vancomycin 1,000 MG SDV 1000 MG XX (12:45)
[2023-11-26] MEDS: heparin, porcine 1,000 unit/mL INJ 10 mL 10000 UNIT IRRIGATION (12:46)
--- NOTE | 2023-11-26 14:27 | PM.OP ---
Operative Report Date of procedure: November 26, 2023 Pre-op diagnosis: Lumbar stenosis with neurogenic claudication Post-op diagnosis: same Procedure done: 1. L2- pelvis fusion 2. L2-S1 instrumentation posterior 3. Lumbopelvic instrumentation fixation 4. Right open sacroiliac fusion 5. Use of computer navigation stereotactic 6. Bone marrow aspirate from right iliac crest through separate incision 7. Use of allograft 8. Revision spine surgery Surgeon: Alex Orona DO Estimated blood loss (mL): 400 Procedure: 1. L2- pelvis posterior fusion 2. L2-S1 instrumentation posterior 3. Lumbopelvic instrumentation fixation 4. Right open sacroiliac fusion 5. Use of computer navigation stereotactic 6. Bone marrow aspirate from right iliac crest through separate incision 7. Use of allograft 8. Revision spine surgery Patient is brought the operative suite after going anesthesia was placed in the prone position. Neuromonitoring was done throughout the entire case. Once in the prone position all areas impingement well-padded. Patient then prepped draped normal sterile fashion. Skin incision was made from L2 to the pelvis. Previous skin incision was used. Subperiosteal dissection was made out to the transverse processes of L2 to the sacral ala. Being careful from L4-S1 of previous laminectomy sites. Once dissection was made then the attention was brought to the bone marrow aspirate. This was done going through the fascia and a separate incision on the right iliac crest. The regenerative bone marrow aspiration kit was used and 10 cc of bone marrow aspirate were used. Next attention was brought to doing the computer navigation. This was done by point 2 pins in the right iliac crest. The fiducial was attached and the C-arm was brought in from the patient information from serum was loaded through the fiducial into the computer and later used to place the pedicle screws. Pedicle screws were then placed from L2-S1. This was done by using the gearshift probe linked to computer navigation. The neck step is just using the pedicle feeler and then using the computer navigated screw screws were placed. This was done at L2 bilaterally, L3 bilaterally, L4 bilaterally, L5 bilaterally, and on the left side S1. Patient already had a right screw in. Next attention was brought to placing the iliac screws. This was done by using the gearshift probe to go through the sacrum into the ala across the SI joint and into the iliac crest. This was done bilaterally. Gearshift probe linked. Navigation was used first followed by the pedicle feeler followed by the tap followed by placing the screw using the computer navigation. To 80 9.5 millimeter screws from [place] were placed. Next tension was brought to placing the right open SI joint fusion. This was done by visualizing the SI joint and passing the screw across the using the navigated gearshift probe. And then using pedicle feeler followed by placing a pin followed by using the drill. Then the bone graft was packed into the SI joint and then the SI joint fusion screw was placed across the sacrum ala and and across the SI joint into the iliac crest. This is only done on the right side since the left side was already fused. Next tension was brought to placing the rods. This was done from L2 to the iliac screw bilaterally. The broken S1 screw was bypassed on the right. Screw caps were then placed at L2-L5 bilaterally and S1 on the left. And then attached to the iliac screws to complete the lumbopelvic fixation. AP lateral fluoroscopy ensured that the hardware was in good position. Wounds were irrigated. And then the transverse processes were decorticated bilaterally. Then the ostial amp bone graft was then packed into the lateral gutters bilaterally. Ling powder was placed deep drain was placed and wound was closed in layered fashion with 0 Vicryl 2-0 Vicryl and Monocryl suture. Sterile dressings were applied patient transferred to the PACU in stable condition.
--- NOTE | 2023-11-26 15:01 | ANE.PACU2 ---
Inpatient post-anesthesia follow up: Airway intact: Yes Vital signs: Temperature 97.1 F Pulse Rate 110 Respiratory Rate 15 Blood Pressure 131/101 Pulse Oximetry 97 Oxygen Delivery Me thod Simple Mask Oxygen Flow Rate 10 Fraction of Inspir ed Oxygen Hydration adequate: Yes Nausea and vomiting: No Pain level: 3 Mental status: Altered (sedated)
[2023-11-26] MEDS: fentaNYL 50 mcg/mL INJ 2mL IVP ×2 (15:09→15:30)
[2023-11-26] MEDS: HYDROmorphone 1 mg/mL INJ 1 mL 0.5 MG IVP (15:53)
--- NOTE | 2023-11-26 16:35 | PC.NURSE ---
1620 - pt continues to complain of yo catheter throughout pacu stay - stating I have to pee - verified per this nurse and Constantine Moseley RN that yo is in place and draining dark yellow urine without complications - decrease in back pain noted after pain medications - pt is able to state name, procedure and family who accompanied him today - taken per nurses noted above to room 257 - Jf Fairbanks RN into room immediately - update given - above passed on to RN as well as 200cc of sanginous fluid emptied and documented prior to move to floor
[2023-11-26] MEDS: ketorolac 30 mg/mL INJ IVP (17:00)
[2023-11-26] MEDS: docusate sodium 100 mg Capsule PO (17:00)
[2023-11-26] MEDS: HYDROcodone-acetaminophen 5-325 mg Tablet PO (17:00)
[2023-11-26] MEDS: lactated ringers 1,000 ML 90 ML IV (17:01)
[2023-11-26] MEDS: morphine 4 mg/mL SDV 1 mL 2 MG IVP (17:52)
[2023-11-26] MEDS: ondansetron 2 mg/ML SDV 2 mL 4 MG IVP (17:52)
[2023-11-26] MEDS: ceFAZolin 3,000 MG in sodium chloride 0.9% (plus) 100 ML 200 MG IV (20:14)
--- NOTE | 2023-11-26 20:29 | PC.NURSE ---
Dr. Orona notified that patient's pain is not well controlled. Ordered to discontinue Hydrocodone and order Oxycodone 10-20 mg q4hour PRN. Also notified that patient is vomiting with no relief from Zofran. Phenergan 25 mg q6hour ORN ordered.
[2023-11-26] MEDS: promethazine 25 mg/mL SDV 1 mL IM (21:05)
[2023-11-26] MEDS: oxyCODONE 5 mg IR Tab/Cap PO (21:40)
[2023-11-27] VITALS (12 sets, daily range): BP systolic 92–116; BP diastolic 53–74; PULSE 63–97; RESP 16–20; TEMP 36.3–37.2; O2SAT 92–97
[2023-11-27] MEDS: oxyCODONE 5 mg IR Tab/Cap PO ×5 (01:15→22:02)
--- NOTE | 2023-11-27 01:53 | PC.NURSE ---
Unable to hourly round on patient due to acute patient status declining in room 258. Patient is alert and oriented and has call light within reach.
[2023-11-27] MEDS: lactated ringers 1,000 ML 90 ML IV ×2 (04:10→15:33)
[2023-11-27] MEDS: ceFAZolin 3,000 MG in sodium chloride 0.9% (plus) 100 ML 200 MG IV ×2 (04:10→11:53)
[2023-11-27] MEDS: ketorolac 30 mg/mL INJ IVP (08:51)
[2023-11-27] MEDS: docusate sodium 100 mg Capsule PO ×2 (08:51→17:23)
[2023-11-27] MEDS: lisinopril 20 mg Tablet PO (08:51)
--- NOTE | 2023-11-27 09:10 | PM.PN ---
Subjective Subjective: Patient seen in chair pain controlled. Vitals/I&O/Wt Last Vital Signs Temp 97.4 F L 11/27/23 08:00 Pulse 97 11/27/23 08:00 Resp 18 11/27/23 08:00 BP 106/68 11/27/23 08:00 Pulse Ox 92 11/27/23 08:00 O2 Del Method Nasal Cannula 11/27/23 04:00 O2 Flow Rate 5 11/26/23 18:30 11/26/23 11/27/23 11/27/23 22:59 06:59 14:59 Intake Total 619.5 / 1969.5 1340 / 3309.5 480 / 480 Output Total 500 / 1000 940 / 1940 Balance 119.5 / 969.5 400 / 1369.5 480 / 480 Weight last 48 hrs Weight 294 lb 2 oz Weight 293 lb Weight 283 lb Physical Exam Narrative: Sitting up in chair comfortable no complaints this morning Urinary Catheter Management: Vance: Cath Placed During This Visit: yes Urinary Catheter Date of Insertion: 11/26/23 Urinary Catheter Time of Insertion: 11:20 A&P Assessment and plan (1) Status post lumbar spinal fusion: Postop day #1 spinal fusion. Will anticipate discharge tomorrow keep the Hemovac drain in 1 more day. Attestations Medical Necessity Statement*: Pain control Coding Level of Care Code Acute Code for Chg Fwd Diagnoses Status post lumbar spinal fusion Z98.1
[2023-11-28] VITALS (9 sets, daily range): BP systolic 86–148; BP diastolic 57–78; PULSE 78–88; RESP 16–20; TEMP 36.5–37.4; O2SAT 90–93
[2023-11-28] MEDS: lactated ringers 1,000 ML 90 ML IV ×3 (02:08→22:07)
[2023-11-28] MEDS: oxyCODONE 5 mg IR Tab/Cap PO ×3 (06:28→22:06)
[2023-11-28 08:04] LABS: Basophils % 0.3 %; Eosinophils # 0.1 10^3/uL (0.0-0.8); Eosinophils % 0.9 %; Hematocrit 34.2 % (37-53); Lymphocytes # 2.1 10^3/uL (0.8-4.8); Lymphocytes % 22.2 %; Mean Corpuscular HGB Conc 31.6 g/dL (30-55); Mean Corpuscular Hemoglobin 31.1 pg (27-33); Mean Corpuscular Volume 98.6 fl (82-101); Mean Platelet Volume 9.1 fL (7.4-10.4); Monocytes # 0.8 10^3/uL (0.2-0.9); Monocytes % 8.4 %; Neutrophils # 6.53 10^3/uL (1.8-7.7); Neutrophils % 67.9 %; Nucleated Red Blood Cells % 0 %; Platelet Count 129 10^3/cmm (157-399); Red Blood Count 3.47 10^6/uL (3.85-5.65); White Blood Count 9.63 10^3/uL (3.29-11.43)
--- NOTE | 2023-11-28 08:37 | P.PN_ITS ---
Subjective 2 Subjective: Patient walked her feet with physical therapy but feels like he is in more pain now after this walk. Would like to stay in the hospital another day. Vitals/I&O/Wt Last Vital Signs Temp 97.7 F 11/28/23 07:57 Pulse 80 11/28/23 07:57 Resp 16 11/28/23 07:57 BP 86/61 11/28/23 08:36 Pulse Ox 90 11/28/23 07:57 O2 Del Method Room Air 11/28/23 07:57 O2 Flow Rate 5 11/26/23 18:30 11/27/23 11/28/23 11/28/23 22:59 06:59 14:59 Intake Total 1520 / 2340 1072.5 / 3412.5 Output Total 490 / 1030 415 / 1445 Balance 1030 / 1310 657.5 / 1967.5 Weight last 48 hrs Weight 304 lb 9 oz Weight 294 lb 2 oz Weight 293 lb Weight 283 lb Physical Exam 2 Narrative: Patient sitting up in chair complaint pain in his back. Hemovac drain has minimal output. Urinary Catheter Management: Vance: Cath Placed During This Visit: yes Urinary Catheter Date of Insertion: 11/26/23 Urinary Catheter Time of Insertion: 11:20 Data 11/28/23 07:58 A&P Assessment and plan (1) Status post lumbar spinal fusion: Postop day 2 lumbar fusion Continue up with physical therapy Discharge planning Attestations 2 Medical Necessity Statement*: Pain control Coding Level of Care Code Acute Code for Chg Fwd Diagnoses Status post lumbar spinal fusion Z98.1
[2023-11-28] MEDS: docusate sodium 100 mg Capsule PO ×2 (09:39→17:42)
[2023-11-28] MEDS: ketorolac 30 mg/mL INJ IVP ×2 (09:39→23:22)
--- NOTE | 2023-11-28 09:50 | PC.NURSE ---
Pt hemovac drain removed from patients right lower quadrant of back. Tip if drain intact. Insertion site dressed with a 2x2 and tegaderm.
--- NOTE | 2023-11-28 10:02 | PC.SOCIAL ---
IMM Update pg 2 of IMM updated and reviewed w/ patient. Copy provided and copy dated, initialed and placed in chart.
[2023-11-29] VITALS (10 sets, daily range): BP systolic 102–137; BP diastolic 59–88; PULSE 80–100; RESP 15–20; TEMP 36.4–37.7; O2SAT 90–98
[2023-11-29] MEDS: magnesium hydroxide 30 mL UDC PO ×3 (00:12→22:04)
[2023-11-29] MEDS: oxyCODONE 5 mg IR Tab/Cap PO ×4 (03:59→22:04)
[2023-11-29] MEDS: docusate sodium 100 mg Capsule PO ×2 (08:57→17:51)
[2023-11-29] MEDS: lisinopril 20 mg Tablet PO (08:57)
--- NOTE | 2023-11-29 14:59 | P.PN_ITS ---
Subjective 2 Subjective: The patient refused physical therapy this morning. Medications: Reviewed: Yes Vitals/I&O/Wt Last Vital Signs Temp 97.6 F 11/29/23 11:51 Pulse 87 11/29/23 11:51 Resp 17 11/29/23 11:51 BP 117/70 11/29/23 11:51 Pulse Ox 93 11/29/23 11:51 O2 Del Method Room Air 11/29/23 11:51 O2 Flow Rate 5 11/26/23 18:30 11/28/23 11/29/23 11/29/23 22:59 06:59 14:59 Intake Total 1466 / 3426 2160 / 2160 Output Total 950 / 1250 350 / 1600 Balance 516 / 2176 -350 / 1826 2160 / 2160 Weight last 48 hrs Weight 304 lb 9 oz Physical Exam 2 Narrative: Patient is sitting up in his chair. Per nursing, incision looks good. There is no evidence of DVT. Urinary Catheter Management: Vance: Cath Placed During This Visit: yes Urinary Catheter Date of Insertion: 11/26/23 Urinary Catheter Time of Insertion: 11:20 Data 11/28/23 07:58 A&P Assessment and plan (1) Status post lumbar spinal fusion: Postop day 3 lumbar fusion Patient refused physical therapy this morning. Discussion was had with him that he will need to participate, or he will not be able to go home as he wishes. Family is in the room with him. His is currently at [facility], and long term may need to be arranged for him to go there. Discharge planning Attestations 2 Medical Necessity Statement*: Ongoing care following lumbar fusion Coding Level of Care Code Acute Code for Chg Fwd Diagnoses Status post lumbar spinal fusion Z98.1
[2023-11-30] VITALS (9 sets, daily range): BP systolic 111–144; BP diastolic 72–82; PULSE 76–95; RESP 16–20; TEMP 36.3–37.2; O2SAT 90–96
[2023-11-30] MEDS: oxyCODONE 5 mg IR Tab/Cap PO ×4 (02:00→21:21)
[2023-11-30] MEDS: magnesium hydroxide 30 mL UDC PO (08:45)
[2023-11-30] MEDS: lisinopril 20 mg Tablet PO (08:45)
[2023-11-30] MEDS: docusate sodium 100 mg Capsule PO ×2 (08:45→17:53)
--- NOTE | 2023-11-30 14:39 | P.PN_ITS ---
Subjective 2 Subjective: Patient is groggy today. This point patient likely will end up going to [facility]. His is in [place]. And that is what they prefer to go. Vitals/I&O/Wt Last Vital Signs Temp 97.8 F 11/30/23 11:54 Pulse 76 11/30/23 11:54 Resp 18 11/30/23 11:54 BP 132/80 11/30/23 11:54 Pulse Ox 91 11/30/23 11:54 O2 Del Method Room Air 11/30/23 11:54 O2 Flow Rate 5 11/26/23 18:30 11/29/23 11/30/23 11/30/23 22:59 06:59 14:59 Intake Total 960 / 3120 120 / 3240 960 / 960 Output Total 1000 / 1000 400 / 1400 100 / 100 Balance -40 / 2120 -280 / 1840 860 / 860 Weight last 48 hrs Weight 306 lb 1 oz Physical Exam 2 Narrative: Sitting upright in chair eating ice cream. Urinary Catheter Management: Vance: Cath Placed During This Visit: yes Urinary Catheter Date of Insertion: 11/26/23 Urinary Catheter Time of Insertion: 11:20 Data 11/28/23 07:58 A&P Assessment and plan (1) Status post lumbar spinal fusion: Postop day 4 posterior spine fusion. Discharge planning likely to group home facility the family prefers [place] Attestations 2 Medical Necessity Statement*: Pain control Coding Level of Care Code Acute Code for Chg Fwd Diagnoses Status post lumbar spinal fusion Z98.1
[2023-11-30 18:33] LABS: Add Urine Microscopic? YES; Bacteria Urine TRACE /hpf; Bilirubin Urine Neg (Negative); Blood Urine 2+ (Negative); Glucose Urine UA Norm (Normal); Ketones Urine Negative (Negative); Leukocyte Esterase Urine Negative (Negative); Mucus Urine 1+ /hpf; Nitrate Urine Negative (Negative); Protein Urine Neg (Negative); Squamous Epithelial Cell Urine 0-4 /hpf (0-5); Urine Appearance Clear (CLEAR); Urine Color Yellow (Yellow); Urobilinogen Urine 1 mg/dL (Negative); WBC Urine 0-4 /hpf (0-5); pH Urine 5 (5-7)
--- NOTE | 2023-11-30 20:44 | PC.NURSE ---
Contacted agent contract clerk ortho in regards to pain control orders since the previous orders had reached their stop date without renewal. Dr. Mistry gave orders for oxy IR 5-10mg PO Q4H PRN but stated to clarify the order with Dr. Orona in the morning.
[2023-11-30] MEDS: trazodone 50 mg Tablet 25 MG PO (20:49)
[2023-11-30] MEDS: acetaminophen 325 mg Tablet 650 MG PO (23:39)
[2023-12-01] VITALS: BP 167/87; PULSE 83; RESP 17; TEMP 37.3; O2SAT 91
[2023-12-01 01:31] VITALS: RESP 22
[2023-12-01] MEDS: oxyCODONE 5 mg IR Tab/Cap PO ×2 (01:31→09:12)
[2023-12-01 04:00] VITALS: BP 105/67; PULSE 67; RESP 92; TEMP 36.5; O2SAT 92
--- NOTE | 2023-12-01 06:49 | P.PN_ITS ---
Subjective 2 Subjective: Per the nurse patient was having pain issues last night. Saw him this morning he was sleeping at this point from sleep since he did not fall asleep till 4 AM. Continue to work on discharge planning to skilled nursing today Vitals/I&O/Wt Last Vital Signs Temp 97.7 F 12/01/23 04:00 Pulse 67 12/01/23 04:00 Resp 92 H 12/01/23 04:00 BP 105/67 12/01/23 04:00 Pulse Ox 92 12/01/23 04:00 O2 Del Method Room Air 12/01/23 04:00 O2 Flow Rate 5 11/26/23 18:30 11/30/23 11/30/23 12/01/23 14:59 22:59 06:59 Intake Total 960 / 960 920 / 1880 240 / 2120 Output Total 100 / 100 800 / 900 450 / 1350 Balance 860 / 860 120 / 980 -210 / 770 Weight last 48 hrs Weight 307 lb 6 oz Weight 306 lb 1 oz Physical Exam 2 Narrative: Patient sleeping Urinary Catheter Management: Vance: Cath Placed During This Visit: yes Urinary Catheter Date of Insertion: 11/26/23 Urinary Catheter Time of Insertion: 11:20 Data 11/28/23 07:58 A&P Assessment and plan (1) Status post lumbar spinal fusion: Status post lumbar fusion discharge planning today Attestations 2 Medical Necessity Statement*: Pain management Coding Level of Care Code Acute Code for Chg Fwd Diagnoses Status post lumbar spinal fusion Z98.1
[2023-12-01 08:23] VITALS: BP 147/90; PULSE 65; RESP 18; TEMP 36.4; O2SAT 95
[2023-12-01 09:12] VITALS: RESP 18
[2023-12-01] MEDS: docusate sodium 100 mg Capsule PO (09:12)
[2023-12-01] MEDS: lisinopril 20 mg Tablet PO (09:12)
--- NOTE | 2023-12-01 09:44 | PC.CHAP ---
Pastoral Care Encounter/Spiritual Assessment Type of Contact [] Declined feed crusher visit [x] Patient/Family/Request visit [] Outpatient visit [] Follow-up visit [] Physician referral [] Code/Alert [] Routine visit [] Staff referral [] Actively dying [] Patient sleeping [] Family support [] [] Out of room [] Palliative care [] [] Receiving care in room [] Pre-surgical visit [] Trauma [] Long length of stay [] ICU visit [] Other: Relational/Emotional Strength [] Patient feels connected with others/family/visitors/staff [] Distress [] Loneliness/isolation [] Abandonment Spirituality of Patient [x] Person of Jesusita [] Attends Latter-Day of their Jesusita [x] Believes in Prayer [] Reads Bible or Yazdanism materials [] There are Spiritual issues to be addressed [employer] [x] Prayer [x] Active listening [] Non-anxious presence [] Spiritual/emotional support [] Crisis/trauma care [] Spiritual counseling [] Bereavement support [] Provided bereavement packet [] Provided Bible/devotional materials [] Provided toy/stuffed animal, coloring book to patient or family member [] Provided Communion [] Anointing/[place] [] Salvation [] Completed spiritual assessment [] Other: Impact on Illness or Injury [x] Angry [x] Fearful [x] Anxious [] Often cries [] Exhaustion [] Unable to work [] Unable to attend alevism [] Unable to walk/stand [] Unable to read [] Unable to drive [] Unable to eat/drink [x] Unable to sleep [] Unable to be with family [] Patient intubated [] Other: Summary lot of pain and discouraged Time spent with patient 20 min
[2023-12-01 12:21] VITALS: BP 141/84; PULSE 80; RESP 18; TEMP 36.4; O2SAT 94
--- NOTE | 2023-12-01 13:46 | PM.DCS ---
Discharge Providers Date of Admission: 11/26/23 14:02 Date of Discharge: December 01, 2023 Attending Provider at Admission: Alex Orona DO Attending Provider at Discharge: Alex Orona DO Primary Care Provider: Damon Edmonds Diagnoses at Discharge Discharge Diagnosis (1) Status post lumbar spinal fusion: Status: Acute Reason for Visit Reason for Visit: M48.062 Physical Exam Urinary Catheter Management: Vance: Cath Placed During This Visit: yes Urinary Catheter Date of Insertion: 11/26/23 Urinary Catheter Time of Insertion: 11:20 Discharge Data Studies Completed and Pending Completed Studies During Hospitalization Category Date Time Status XR lumbar spine 2-3V* [id number] Routine Exams 11/26/23 00:00 Completed Pending at discharge Category Date Time Status SARS Covid-2 Antigen Routine Lab 12/01/23 13:42 Uncollected Radiology Impressions Lumbar Spine X-Ray 11/26/23 00:00 Impression: Posterior lumbosacral fusion. Laboratory Results WBC 9.63 10^3/uL (3.29-11.43) 11/28/23 07:58 RBC 3.47 10^6/uL (3.85-5.65) L 11/28/23 07:58 Hgb 10.80 g/dL (11.27-16.99) L 11/28/23 07:58 Hct 34.2 % (37-53) L 11/28/23 07:58 MCV 98.6 fl (82-101) 11/28/23 07:58 MCH 31.1 pg (27-33) 11/28/23 07:58 MCHC 31.6 g/dL (30-55) 11/28/23 07:58 RDW 15.0 % (12.1-15.1) 11/28/23 07:58 Plt Count 129 10^3/cmm (157-399) L 11/28/23 07:58 MPV 9.1 fL (7.4-10.4) 11/28/23 07:58 Neut % (Auto) 67.9 % 11/28/23 07:58 Lymph % (Auto) 22.2 % 11/28/23 07:58 [place] % (Auto) 8.4 % 11/28/23 07:58 Eos % (Auto) 0.9 % 11/28/23 07:58 Baso % (Auto) 0.3 % 11/28/23 07:58 Neut # (Auto) 6.53 10^3/uL (1.8-7.7) 11/28/23 07:58 Lymph # (Auto) 2.1 10^3/uL (0.8-4.8) 11/28/23 07:58 [place] # (Auto) 0.8 10^3/uL (0.2-0.9) 11/28/23 07:58 Eos # (Auto) 0.1 10^3/uL (0.0-0.8) 11/28/23 07:58 Baso # (Auto) 0.0 10^3/uL (0.0-0.1) 11/28/23 07:58 Nucleated RBC % (auto) 0 % 11/28/23 07:58 Nucleated RBCs # 0.0 /100WBC 11/28/23 07:58 Urine Color Yellow (Yellow) 11/30/23 18:05 Urine Appearance Clear (CLEAR) 11/30/23 18:05 Urine pH 5 (5-7) 11/30/23 18:05 Ur Specific [place] 1.020 (1.005-1.030) 11/30/23 18:05 Urine Protein Neg (Negative) 11/30/23 18:05 Urine Glucose (UA) Norm (Normal) 11/30/23 18:05 Urine Ketones Negative (Negative) 11/30/23 18:05 Urine Blood 2+ (Negative) H 11/30/23 18:05 Urine Nitrate Negative (Negative) 11/30/23 18:05 Urine Bilirubin Neg (Negative) 11/30/23 18:05 Urine Urobilinogen 1 mg/dL (Negative) H 11/30/23 18:05 Ur Leukocyte Esterase Negative (Negative) 11/30/23 18:05 Urine RBC 5-10 /hpf (0-2) H 11/30/23 18:05 Urine WBC 0-4 /hpf (0-5) H 11/30/23 18:05 Ur Squamous Epith Cells 0-4 /hpf (0-5) H 11/30/23 18:05 Amorphous Sediment Not Reportable 11/30/23 18:05 Urine Bacteria Trace /hpf (NONE) 11/30/23 18:05 Urine Mucus 1+ /hpf 11/30/23 18:05 Blood Type O Positive 05/15/24 09:35 Rho(D) Type Rh positive 11/26/23 09:35 Antibody Screen Negative 11/26/23 09:35 Vitals Last Vital Signs Temp 97.6 F 12/01/23 12:21 Pulse 80 12/01/23 12:21 Resp 18 12/01/23 12:21 BP 141/84 12/01/23 12:21 Pulse Ox 94 12/01/23 12:21 O2 Del Method Room Air 12/01/23 12:21 O2 Flow Rate 5 11/26/23 18:30 Discharge Plan Discharge Patient Disposition: Home Condition: Stable Prescriptions: New oxycodone 10 mg tablet 10 mg PO Q4H PRN (Reason: pain) 7 Days Qty: 40 0RF Continued lisinopril 20 mg tablet 20 mg PO DAILY acetaminophen [Tylenol] 325 mg tablet 325 mg PO QID PRN (Reason: Pain) Eliquis 5 mg tablet 5 mg PO BID enoxaparin 120 mg/0.8 mL syringe 120 mg SUBCUT Q12H Qty: 5 0RF Rx Instructions: 1 injection on 11/21/23 & 11/22/23 AM & PM 1 injection on 11/23/23 in AM only Discharge Orders: Discharge Order (Routine); Ordered 12/01/23 Ordered By: Alex Orona Referrals: Alex Orona DO [Physician] - 12/09/23 3:30 pm Damon Edmonds [Primary Care Provider] - 12/03/23 11:20 am () Discharge Diet: Advance as tolerated Discharge Activity: Limit activity as instructed Patient Instructions: Opioid Safety Activity Restrictions/Additional Instructions: Thank you for [facility] for your care! The following is a list of instructions, from your provider, to follow upon your discharge to ensure you have the optimal recovery from your recent injury orsurgery. Follow-up care is a devine part of your treatment and safety. Be sure to make and go to all appointments, and call your doctor if you are having problems. If you do not already have a follow-up appointment made, call Dr. Orona office in the next 1-3 days to make follow up appointment for 1 weeks at [phone]. It is also a good idea to know your test results and keep a list of the medicines you take. Medications will be prescribed for you at your provider's discretion. These medications are to be used as instructed; if they are taken more often that prescribed they will not be refilled early and in most cases will not be refilled at all. > When a refill is needed,you should contact [facility] [place] 2-3 business days before your prescription runs out. Medications will NOT be refilled by division human resources manager providers after hours! > Many pain medications contain Tylenol (Acetaminophen). Do not consume more than 4,000 mg of Tylenol per day in total with any combination ofmedications. > Pain medications can cause constipation. Please use an over the counter stool softener as directed, while taking pain medications. Consulty our local pharmacist with questions or recommendations on stool softeners. If constipation persists, contact our office or your primary care provider. > While under our care,you are not to receive pain medications or other controlled substances from any other provider unless our office is notified and approves. Any attempts to do so will result in refusal to prescribe any further pain medications and possible dismissal from our practice. ? Keep dressing on until seen in clinic ? Showering is permitted, however we ask that you do not take a bath, sit in a whirlpool / Jacuzzi, or go swimming for 1 month. For only the first 2 days after surgery, lt wilt be necessary for you to cover your wound/dressing with plastic and tape to keep it dry. ? Walking is essential for the healing process after surgery. We would like you to slowly advance your walking. This should be done on relatively flat clear ground (inside or out) or can be done on a treadmill. Remember this goal does not have to happen all at once, slowly increase your distance and duration. This can be broken into more more than one walk per day as tolerated. Patients who walk as directed after surgery rarely require Physical Therapy. In the unlikely event this issue arises your provider will direct hospital staff to make the appropriate arrangements. ? No lifting over 5 pounds {a gallon of milk) or bending/twisting until further notice. Each of these activities places an unnecessary amount of stress onto the body and can impede the delicate healing process. > Instead of bending at the waist, keep your back straight and bend at the knees. > Instead of twisting your torso, keep your back straight and turn your entire body with your feet. ? You may sleep in any position which makes you comfortable. Many patients find comfort sleeping in a reclining chair. It is not abnormal to have difficulty sleeping for the first several weeks following your surgery. We recommend trying Benadry! or Tylenol PM as directed to help with your sleeping difficulties. Both medications are over the counter and available withoutprescription. ? NO SMOKING!!! Smoking dramatically increases the probability of developing postoperative wound infections. ? Common complaints after lumbar and/or thoracic spine surgery include, but are not limited to: numbness and/or tingling in the legs, pain around the incision and surrounding tissues, muscle spasms, or stiffness of the middle to low back. Contact our office if these symptoms persist or if an acute change occurs. ? No driving for the first 3-5days, and not while taking narcotics [] until seen at your follow-up appointment and cleared. There are no restrictions for riding on short trips, however if you take a longer trip, arrangements should be made to make regular stops to get out of the vehicle and stretch . ? Swelling is an unfortunate event that will take place with any surgery and is the primary source of your postoperative discomfort. While walking and regular approved activities helps control inflammation, there are additional steps you can take to minimizeswelling. > Place ice over the surgical site and surrounding tissue for twenty minutes, followed by applying a low/medium heat (heating pad) for an additional twenty minutes every 1-2 hours as needed for painrelief. > You may use of over the counter anti-inflammatory medications (Ibuprofen, Motrin, Aleve, Advil, etc) as directed on the package label. These types of medicines wm significantly reduce the amount of discomfort you experience after surgery from swelling. It should be noted that if you have and allergy to any of these medications, or a history of ulcers or kidney disease you should consult you primary care provider prior to starting these medications. Discharge Attestations Time Spent in Discharge Care*: less than 30 min Quality Metrics Clinical Quality Measures [ No reported AMI, CVA or VTE this stay] Coding Level of Care Code Acute Code for Chg Fwd Diagnoses Status post lumbar spinal fusion Z98.1
[2023-12-01 14:46] LABS: SARS Covid-2 Antigen negative (Negative)
--- NOTE | 2023-12-01 14:52 | PC.NURSE ---
Report called to Patient Support Partner LENORA Jameson at [facility].
== END 2023-12-01 15:48 | disposition skilled nursing facility (03) | DRG 460 ==
LOC: MEDSURG 11-27 02:23
PROVIDERS: Admitting Provider Orthopaedic Surgery; PCP Family Medicine; Visit Provider Orthopaedic Surgery
PROC: 0SG1071 Fusion of 2 or more Lumbar Vertebral Joints with Autologous Tissue Substitute, Posterior Approach, Posterior Column, Open Approach (ICD-10-PCS; principal; 2023-11-26 10:10)
PROC: 0SG1071 Fusion of 2 or more Lumbar Vertebral Joints with Autologous Tissue Substitute, Posterior Approach, Posterior Column, Open Approach (ICD-10-PCS; 2023-11-26 10:10)
PROC: 0SG1071 Fusion of 2 or more Lumbar Vertebral Joints with Autologous Tissue Substitute, Posterior Approach, Posterior Column, Open Approach (ICD-10-PCS; CPT 27280; 2023-11-26 10:10)
DX: M48.062 Spinal stenosis, lumbar region with neurogenic claudication (principal); M96.0 Pseudarthrosis after fusion or arthrodesis; Z68.42 Body mass index [BMI] 45.0-49.9, adult; M47.816 Spondylosis without myelopathy or radiculopathy, lumbar region; I48.91 Unspecified atrial fibrillation; I50.9 Heart failure, unspecified; I11.0 Hypertensive heart disease with heart failure; E66.01 Morbid (severe) obesity due to excess calories; Z11.52 Encounter for screening for COVID-19
CPT/HCPCS: 36415; 51702; 72100; 76000; 81001; 85025; 86850; 86900; 87426; 96372; 97110; 97116; 97161; 97530; C1713; J0131; J0690; J1100; J1170; J1644; J1885; J2270; J2371; J2405; J2550; J2704; J3010; J3370; J3490; J7030; J7120; P9045

== ENCOUNTER → 2023-12-09 15:09 | Outpatient (BNVA) | payer MEDICARE, MEDICAID, SELFPAY | PROVIDERS: PCP Family Medicine; Visit Provider Orthopaedic Surgery | DX: Z98.1 Arthrodesis status | CPT/HCPCS: 99024 ==

== ENCOUNTER → 2023-12-25 13:08 | Outpatient (BNVA) | payer MEDICARE, MEDICAID, SELFPAY | PROVIDERS: PCP Family Medicine; Visit Provider Orthopaedic Surgery | DX: Z98.1 Arthrodesis status (principal) | CPT/HCPCS: 72100; 99024 ==

== ENCOUNTER 2023-12-28 14:24 | Emergency (ER) | payer MEDICARE, MEDICAID, SELFPAY ==
[2023-12-28] VITALS (11 sets, daily range): BP systolic 122–154; BP diastolic 64–100; PULSE 66–76; RESP 18–22; TEMP 36.5; O2SAT 92–97; BMI 46.3
--- NOTE | 2023-12-28 14:38 | W.ED.BACK ---
HPI - Back Pain/Injury General: Chief Complaint: Back Pain/Injury Stated Complaint: BACK PAIN Time Seen by Provider: 12/28/23 14:29 History of Present Illness: 83-year-old male patient comes in today with exacerbation of back pain. Patient had a surgery of his spine about 1 month ago. Patient been on oxycodone he reports for his pain. Patient has taken his medication as directed but continues to have significant pain today. Patient came in due to the persistent pain. Patient appears nontoxic. Patient appears in no acute distress. Review of the medication record it appears patient is actually on tramadol 50 mg 4 times a day. Patient also uses Tylenol. Patient takes lisinopril and apixaban. 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 Ugo Ramires: Thoracic laminotomy, placement of intraspinal, epidural paddle electrode arrays and placement of subcutaneous programmable pulse generator. History of sacroiliac joint dysfunction stereotactic guided left sacroiliac joint arthrodesis with instrumentation, Dr. De León, 12/2018 History of lumbar surgery (~12/02/14) L5-S1 PLIF with methylmethacrylate pedicle screw augmentation, Dr. 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 Physical Exam Const: COMMON NORMALS: alert HENMT: COMMON NORMALS: normocephalic HEAD & SCALP: normocephalic Neck/C-Spine: COMMON NORMALS: full ROM Resp: COMMON NORMALS: normal respiratory effort Cardio: COMMON NORMALS: regular rate RATE: regular rate Back/Pelvis: COMMON NORMALS: thoracic and lumbar spine normal to inspection LUMBAR SPINE/LOWER BACK: Yes paraspinal muscle tenderness Extremity: COMMON NORMALS: normal to inspection Neuro: SENSORIUM/ORIENTATION: Yes alert Skin: COMMON NORMALS: turgor normal GENERAL SKIN EXAM: turgor normal Course Vital Signs: Vital signs: Vital Signs Temperature 97.7 F 12/28/23 14:28 Pulse Rate 66 12/28/23 19:09 Respiratory Rate 22 H 12/28/23 14:49 Blood Pressure 122/64 12/28/23 19:09 Pulse Oximetry 96 12/28/23 19:09 Oxygen Delivery Me thod Room Air 12/28/23 19:09 MDM - Back Pain/Injury Medical Decision Making Patient presents to the ER per EMS for concerns of severe back pain. Patient reports for the last 2 to 3 days he has had some increasing pain. Patient reports his medications at home without managing it for him. Patient had a fusion of his lumbar spine 1 month ago. Patient appears nontoxic. Patient appears in moderate pain. Differential diagnosis includes but not limited to surgical site infection, gastroenteritis, dissection of the aorta, malingering. CBC CMP was unremarkable. Urinalysis shows no signs of infection. Lumbar CT showed normal healing relating surgical. CT of the abdomen pelvis noted no acute abnormality. Reviewed exam with patient with recommendations for treatment and follow-up. Patient be placed on some steroids to help with inflammation. Patient be placed on muscle relaxer for further pain relief. Patient will continue with his routine medication otherwise with recommendations to follow-up with primary care. Labs 12/28/23 15:53 12/28/23 15:53 Radiology Impressions Lumbar Spine CT 12/28/23 15:37 IMPRESSION: 1. Soft tissue fat stranding in the posterior lumbar subcutaneous tissues. Likely postsurgical. 2. No acute skeletal pathology or hardware complications. Abdomen/Pelvis CT 12/28/23 16:27 IMPRESSION: 1. No acute abdominopelvic pathology. 2. Recent lumbosacral spine fixation with expected postsurgical changes and no complications. 3. Hepatic steatosis. 4. Colonic diverticulosis. 5. Incidental findings as above. COMMENTS: Consistent with the [employer]'s Incidental Findings Committee white paper (J Am Sendy Radiol 2018): Any incidental renal lesion less than 1 cm or classified as too small to characterize, or any incidental cystic renal lesion characterized as simple-appearing, is likely benign. No follow-up imaging is recommended for these lesions per consensus recommendations based on imaging criteria. Laboratory Results WBC 6.36 10^3/uL (3.29-11.43) 12/28/23 15:53 RBC 4.39 10^6/uL (3.85-5.65) 12/28/23 15:53 Hgb 13.10 g/dL (11.27-16.99) 12/28/23 15:53 Hct 41.4 % (37-53) 12/28/23 15:53 MCV 94.3 fl (82-101) 12/28/23 15:53 MCH 29.8 pg (27-33) 12/28/23 15:53 MCHC 31.6 g/dL (30-55) 12/28/23 15:53 RDW 13.7 % (12.1-15.1) 12/28/23 15:53 Plt Count 227 10^3/cmm (157-399) 12/28/23 15:53 MPV 8.9 fL (7.4-10.4) 12/28/23 15:53 Neut % (Auto) 67.6 % 12/28/23 15:53 Lymph % (Auto) 19.5 % 12/28/23 15:53 [place] % (Auto) 9.7 % 12/28/23 15:53 Eos % (Auto) 2.2 % 12/28/23 15:53 Baso % (Auto) 0.5 % 12/28/23 15:53 Neut # (Auto) 4.30 10^3/uL (1.8-7.7) 12/28/23 15:53 Lymph # (Auto) 1.2 10^3/uL (0.8-4.8) 12/28/23 15:53 [place] # (Auto) 0.6 10^3/uL (0.2-0.9) 12/28/23 15:53 Eos # (Auto) 0.1 10^3/uL (0.0-0.8) 12/28/23 15:53 Baso # (Auto) 0.0 10^3/uL (0.0-0.1) 12/28/23 15:53 Nucleated RBC % (auto) 0 % 12/28/23 15:53 Nucleated RBCs # 0.0 /100WBC 12/28/23 15:53 Sodium 136 mmol/L (136-145) 12/28/23 15:53 Potassium 4.3 mmol/L (3.5-5.1) 12/28/23 15:53 Chloride 99 mmol/L (98-107) 12/28/23 15:53 Carbon Dioxide 27 mmol/L (22-29) 12/28/23 15:53 Anion Gap 14.3 (5-19) 12/28/23 15:53 BUN 18 mg/dL (8-23) 12/28/23 15:53 Creatinine 0.9 mg/dL (0.7-1.2) 12/28/23 15:53 GFR Calculation Not Reportable 12/28/23 15:53 Glucose 107 mg/dL (65-115) 12/28/23 15:53 Calculated Osmolality 284 mOsm/kg (285-295) L 12/28/23 15:53 Calcium 9.6 mg/dL (8.5-10.5) 12/28/23 15:53 Total Bilirubin 0.4 mg/dL (0.15-1.2) 12/28/23 15:53 AST 23 U/L (0-40) 12/28/23 15:53 ALT 16 U/L (0-41) 12/28/23 15:53 Alkaline Phosphatase 126 U/L (40-130) 12/28/23 15:53 C-Reactive Protein 7.7 mg/L (0.0-4.9) H 12/28/23 15:53 Total Protein 7.9 g/dL (6.6-8.7) 12/28/23 15:53 Albumin 3.9 g/dL (3.5-5.2) 12/28/23 15:53 Globulin 4.0 g/dL (1.3-4.6) 12/28/23 15:53 Urine Color Yellow (Yellow) 12/28/23 19:25 Urine Appearance Cloudy (CLEAR) A 12/28/23 19:25 Urine pH 6.5 (5-7) 12/28/23 19:25 Ur Specific [place] 1.010 (1.005-1.030) 12/28/23 19:25 Urine Protein 1+ (Negative) H 12/28/23 19:25 Urine Glucose (UA) Norm (Normal) 12/28/23 19:25 Urine Ketones Negative (Negative) 12/28/23 19:25 Urine Blood 2+ (Negative) H 12/28/23 19:25 Urine Nitrate Negative (Negative) 12/28/23 19: Urine Bilirubin 1+ (Negative) H 12/28/23 19:25 Urine Urobilinogen 1 mg/dL (Negative) H 12/28/23 19:25 Ur Leukocyte Esterase Negative (Negative) 12/28/23 19:25 Urine RBC 5-10 /hpf (0-2) H 12/28/23 19:25 Urine WBC 0-4 /hpf (0-5) H 12/28/23 19:25 Ur Squamous Epith Cells 5-10 /hpf (0-5) H 12/28/23 19:25 Amorphous Sediment Not Reportable 12/28/23 19:25 Urine Bacteria Trace /hpf (NONE) 12/28/23 19:25 Hyaline Casts 0-4 /lpf H 12/28/23 19:25 Urine Mucus 1+ /hpf 12/28/23 19:25 All radiology interpretation(s) finalized by discharge Discharge Plan Discharge Patient Disposition: Home Clinical Impression: Back pain, lumbosacral, History of lumbar surgery Condition: Stable Prescriptions: New prednisone 20 mg tablet 20 mg PO DAILY 5 Days Qty: 5 0RF cyclobenzaprine 5 mg tablet 5 mg PO TID Qty: 15 0RF No Action lisinopril 20 mg tablet 20 mg PO DAILY acetaminophen [Tylenol] 325 mg tablet 325 mg PO QID PRN (Reason: Pain) Eliquis 5 mg tablet 5 mg PO BID tramadol 50 mg tablet 50 mg PO Q6H PRN (Reason: pain) 30 Days Qty: 120 0RF enoxaparin 120 mg/0.8 mL syringe 120 mg SUBCUT Q12H Qty: 5 0RF Rx Instructions: 1 injection on 11/21/23 & 11/22/23 AM & PM 1 injection on 11/23/23 in AM only tramadol 50 mg tablet 50 mg PO Q8H PRN (Reason: pain) Qty: 90 0RF Discharge Orders: Discharge ED (Routine); Ordered 12/28/23 Ordered By: Surya Camarena Referrals: Damon Edmonds [Primary Care Provider] - Discharge Diet: Usual diet Discharge Activity: Increase activity as tolerated Patient Instructions: Back Pain (ED) Activity Restrictions/Additional Instructions: Follow-up with primary care or swine extension field specialist tomorrow. Use ice or heat to help with pain. Take medication as directly to help with further pain relief. Drink plenty of water and fluids. Follow-up with primary care. Coding Level of Care Code ED Pipe Fittings Molder for Deanna Wetzel
[2023-12-28] MEDS: morphine 4 mg/mL SDV 1 mL IM (14:49)
[2023-12-28] MEDS: ketorolac 30 mg/mL INJ IM (14:51)
[2023-12-28] MEDS: ondansetron 4 MG Tablet PO (14:52)
--- NOTE | 2023-12-28 15:37 | CTR_ITS ---
PROCEDURE INFORMATION: Exam: CT Lumbar Spine Without Contrast Exam date and time: 12/28/2023 5:23 PM Age: 83 years old Clinical indication: Low back pain; Prior surgery; Surgery date: <1 month; Surgery type: Lumbar fusion; Additional info: Back pain, recent surger TECHNIQUE: Imaging protocol: Computed tomography of the lumbar spine without contrast. Radiation optimization: All CT scans at this facility use at least one of these dose optimization techniques: automated exposure control; mA and/or kV adjustment per patient size (includes targeted exams where dose is matched to clinical indication); or iterative reconstruction. COMPARISON: CT lumbar spine w con [id number] 09/15/2023 10:57 AM RADIATION DOSE METRICS: Total DLP (mGy-cm): 1068.64 FINDINGS: Bones/joints: Recent posterior lumbosacral spine fixation with transpedicular screws, posterior rods, and sacroiliac fixation screws. No evidence of hardware complications. Specifically, no evidence for hardware loosening or periprosthetic fractures. Kyphoplasty changes are also present at L5. The spinal canal is patent. No bony neural foraminal stenosis is present. Moderate multilevel degenerative changes of the spine, as manifested by multilevel anterior osteophytes and multilevel decrease in intervertebral disc space. There is no evidence of acutely displaced skeletal fractures. There is no evidence of joint dislocation. Soft tissues: Soft tissue fat stranding in the posterior lumbar subcutaneous tissues. No soft tissue fluid collections. Other findings: No acute findings in the visualized retroperitoneum. CT/CT lumbar spine wo con* [id number] IMPRESSION: 1. Soft tissue fat stranding in the posterior lumbar subcutaneous tissues. Likely postsurgical. 2. No acute skeletal pathology or hardware complications.
--- NOTE | 2023-12-28 15:39 | PC.NURSE ---
PT STATES WHEN ASKED IF HE HAS GOT ANY PAIN RELIEF PT STATES I DON'T KNOW OH I DON'T KNOW. PT THEN STATES HIS PAIN IS A 10.
--- NOTE | 2023-12-28 15:50 | PC.NURSE ---
PT STATES HE CAN NOT URINATE FOR UA AT THIS TIME, REQUESTING SOMETHING TO DRINK, A COKE, JUSTUS LYLE NOTIFIED AND OKAY WITH PT HAVING COKE TO DRINK. PT GIVEN COKE TO DRINK.
[2023-12-28 15:58] LABS: Basophils % 0.5 %; Eosinophils # 0.1 10^3/uL (0.0-0.8); Eosinophils % 2.2 %; Hematocrit 41.4 % (37-53); Lymphocytes # 1.2 10^3/uL (0.8-4.8); Lymphocytes % 19.5 %; Mean Corpuscular HGB Conc 31.6 g/dL (30-55); Mean Corpuscular Hemoglobin 29.8 pg (27-33); Mean Corpuscular Volume 94.3 fl (82-101); Mean Platelet Volume 8.9 fL (7.4-10.4); Monocytes # 0.6 10^3/uL (0.2-0.9); Monocytes % 9.7 %; Neutrophils % 67.6 %; Nucleated Red Blood Cells % 0 %; Platelet Count 227 10^3/cmm (157-399); Red Blood Count 4.39 10^6/uL (3.85-5.65); Red Cell Distribution Width 13.7 % (12.1-15.1); White Blood Count 6.36 10^3/uL (3.29-11.43)
[2023-12-28 16:15] LABS: Alanine Aminotransferase 16 U/L (0-41); Albumin Level 3.9 g/dL (3.5-5.2); Alkaline Phosphatase 126 U/L (40-130); Anion Gap 14.3 (5-19); Aspartate Amino Transferase 23 U/L (0-40); Blood Urea Nitrogen 18 mg/dL (8-23); C Reactive Protein 7.7 mg/L (0.0-4.9); Calcium 9.6 mg/dL (8.5-10.5); Carbon Dioxide 27 mmol/L (22-29); Chloride 99 mmol/L (98-107); Creatinine Clr Calc Pharmacy 71.7275; Glucose 107 mg/dL (65-115); Osmolality Calculated 284 mOsm/kg (285-295); Potassium 4.3 mmol/L (3.5-5.1); Sodium 136 mmol/L (136-145); Total Bilirubin 0.4 mg/dL (0.15-1.2); Total Protein 7.9 g/dL (6.6-8.7)
[2023-12-28] MEDS: ondansetron 2 mg/ML SDV 2 mL 4 MG IM (16:25)
--- NOTE | 2023-12-28 16:27 | CTR_ITS ---
PROCEDURE INFORMATION: Exam: CT Abdomen And Pelvis With Contrast Exam date and time: 12/28/2023 5:27 PM Age: 83 years old Clinical indication: Abdominal pain; Generalized; Prior surgery; Surgery date: <1 month; Surgery type: Lumbar; Additional info: Back pain, n/v TECHNIQUE: Imaging protocol: Computed tomography of the abdomen and pelvis with contrast. Radiation optimization: All CT scans at this facility use at least one of these dose optimization techniques: automated exposure control; mA and/or kV adjustment per patient size (includes targeted exams where dose is matched to clinical indication); or iterative reconstruction. Contrast material: OMNI 350; Contrast volume: 100 ml; Contrast route: INTRAVENOUS (IV); COMPARISON: CR XR lumbar spine 2-3V* [id number] 12/25/2023 1:20 PM RADIATION DOSE METRICS: Total DLP (mGy-cm): 1258.93 FINDINGS: Lungs: Lung bases are clear. Liver: Diffuse decrease in hepatic parenchymal density, consistent with fatty infiltration. Single hypodense liver lesion measuring less than 1 cm in the right hepatic lobe, too small to characterize. Consider correlation with nonemergent ultrasound. The liver is otherwise unremarkable. Gallbladder and bile ducts: Prior cholecystectomy. There is no evidence of biliary ductal dilation. Pancreas: There is diffuse, benign fatty infiltration of the pancreas. There is diffuse atrophy of the pancreatic parenchyma. The pancreas is otherwise unremarkable. Spleen: The spleen is normal. Adrenal glands: The adrenal glands are normal. Kidneys and ureters: Single right subcentimeter hypodense right renal lesion which is too small to characterize. Consider correlation with nonemergent ultrasound. The kidneys are otherwise unremarkable. The ureters are normal. Stomach and bowel: Diffuse colonic diverticulosis is present. There is mildly excessive colonic stool content. No bowel obstruction or significant bowel wall thickening. Stomach is decompressed and difficult to evaluate. The duodenum is unremarkable. Appendix: Appendix is not confidently visualized on this examination, however there are no significant inflammatory changes to the right lower quadrant. Intraperitoneal space: No free fluid, fluid collections, or pneumoperitoneum. Vasculature: The arterial vasculature demonstrates diffuse moderate atherosclerotic calcification. No aortic aneurysms. Portal venous system is patent. Lymph nodes: There is no evidence of lymphadenopathy. Urinary bladder: The bladder is decompressed. Reproductive: The prostate demonstrates marked nonspecific enlargement. The seminal vesicles are normal. The prostate demonstrates nonspecific parenchymal calcifications. Bones/joints: Recent lumbosacral spine fixation extending from L1 through S1 with bilateral sacroiliac fixation. Kyphoplasty changes are also present at L5. No evidence of hardware complications. Specifically, no evidence for hardware loosening or periprosthetic fractures. Moderate multilevel degenerative changes of the spine, as manifested by multilevel anterior osteophytes and multilevel decrease in intervertebral disc space. Mild osteoarthritis of the right hip joint. Mild osteoarthritis of the left hip joint. No acute fracture, dislocation, or aggressive osseous lesion. Soft tissues: Soft tissue swelling in the posterior lumbar region, postsurgical in etiology. No fluid collections. CT/CT abdomen pelvis w con* [id number] IMPRESSION: 1. No acute abdominopelvic pathology. 2. Recent lumbosacral spine fixation with expected postsurgical changes and no complications. 3. Hepatic steatosis. 4. Colonic diverticulosis. 5. Incidental findings as above. COMMENTS: Consistent with the [employer]'s Incidental Findings Committee white paper (J Am Sendy Radiol 2018): Any incidental renal lesion less than 1 cm or classified as too small to characterize, or any incidental cystic renal lesion characterized as simple-appearing, is likely benign. No follow-up imaging is recommended for these lesions per consensus recommendations based on imaging criteria.
--- NOTE | 2023-12-28 17:14 | PC.NURSE ---
PT REPORTS FEELING BETTER AFTER HAVING EMESIS AT 1645. STATES HIS NAUSEA IS BETTER.
[2023-12-28] MEDS: iohexol 350 mg/mL 500 mL Btl (per mL) IV (17:30)
[2023-12-28] MEDS: metoclopramide 5 mg/mL SDV 2 mL 10 MG IVP (18:01)
[2023-12-28 19:36] LABS: Add Urine Microscopic? YES; Bacteria Urine TRACE /hpf; Bilirubin Urine 1+ (Negative); Blood Urine 2+ (Negative); Glucose Urine UA Norm (Normal); Hyaline Casts Urine 0-4 /lpf; Ketones Urine Negative (Negative); Leukocyte Esterase Urine Negative (Negative); Mucus Urine 1+ /hpf; Nitrate Urine Negative (Negative); Protein Urine 1+ (Negative); Urine Appearance Cloudy (CLEAR); Urine Color Yellow (Yellow); Urobilinogen Urine 1 mg/dL (Negative); WBC Urine 0-4 /hpf (0-5); pH Urine 6.5 (5-7)
[2023-12-28] MEDS: dexamethasone 10 mg/mL INJ IM (19:46)
== END 2023-12-28 20:08 | disposition home or self-care (01) ==
PROVIDERS: Emergency Provider Nurse Practitioner Family; PCP Family Medicine
DX: M54.50 Low back pain, unspecified (principal); Z79.01 Long term (current) use of anticoagulants; Z98.890 Other specified postprocedural states; I50.9 Heart failure, unspecified
CPT/HCPCS: 36415; 72131; 74177; 80053; 81001; 85025; 86140; 96372; 96374; 99285; J1100; J1885; J2270; J2405; J2765; Q0162; Q9967

== ENCOUNTER → 2024-04-27 14:00 | Outpatient (BNVA) | payer MEDICARE, MEDICAID, SELFPAY | PROVIDERS: PCP Family Medicine; Visit Provider Orthopaedic Surgery | DX: Z98.1 Arthrodesis status (principal); M54.9 Dorsalgia, unspecified | CPT/HCPCS: 72100; 99214 ==

== ENCOUNTER → 2024-05-04 09:37 | Outpatient (BNVA) | payer MEDICARE, MEDICAID, SELFPAY | PROVIDERS: PCP Family Medicine; Visit Provider Nurse Practitioner Family | DX: I48.11 Longstanding persistent atrial fibrillation (principal); Z79.01 Long term (current) use of anticoagulants; G89.28 Other chronic postprocedural pain; M54.9 Dorsalgia, unspecified; F43.20 Adjustment disorder, unspecified | CPT/HCPCS: 99213 ==

== ENCOUNTER 2024-05-10 15:27 | Outpatient (CLI) | payer MEDICARE, MEDICAID, SELFPAY ==
--- NOTE | 2024-05-10 15:45 | CTR_ITS ---
PROCEDURE INFORMATION: Exam: CT Lumbar Spine Without Contrast Exam date and time: 05/10/2024 3:53 PM Age: 83 years old Clinical indication: Low back pain; Prior surgery; Surgery date: 6+ months; Surgery type: Lumbar x2, last x6 mon ago, no relief per PT; Additional info: Lumbar pain TECHNIQUE: Imaging protocol: Computed tomography of the lumbar spine without contrast. Radiation optimization: All CT scans at this facility use at least one of these dose optimization techniques: automated exposure control; mA and/or kV adjustment per patient size (includes targeted exams where dose is matched to clinical indication); or iterative reconstruction. COMPARISON: CT lumbar spine wo con* [id number] 12/28/2023 5:23 PM RADIATION DOSE METRICS: Total DLP (mGy-cm): 1636.3 FINDINGS: Limitations: The study is limited by artifact from fusion hardware. Bones/joints: Posterior spinal fusion changes L1-S1 with bilateral rods and pedicle screws again present. The L1 pedicle screw on the left closely approximates the superior endplate which is unchanged. L5 vertebroplasty changes again present. Bilateral SI joint fusion changes are again present. Bones are diffusely demineralized. Spinal alignment is near anatomic. No acute appearing displaced fracture identified. L4-L5 laminectomy changes again seen. Multilevel degenerative changes are similar. 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 Ectatic infrarenal aorta to 2.9 cm unchanged. Soft tissues: Subcutaneous soft tissue induration in the lower back is similar to the previous study. No focal fluid collection identified. CT/CT lumbar spine wo con* [id number] IMPRESSION: Stable postsurgical changes. No acute osseous injury.
== END 2024-05-10 15:28 | disposition home or self-care (01) ==
LOC: RAD 15:28
PROVIDERS: PCP Family Medicine; Visit Provider Orthopaedic Surgery
DX: Z98.1 Arthrodesis status (principal); M48.062 Spinal stenosis, lumbar region with neurogenic claudication; M43.26 Fusion of spine, lumbar region
CPT/HCPCS: 72131

== ENCOUNTER → 2024-05-13 13:15 | Outpatient (BNVA) | payer MEDICARE, MEDICAID, SELFPAY | PROVIDERS: PCP Family Medicine; Visit Provider Orthopaedic Surgery | DX: Z98.1 Arthrodesis status (principal); Z09 Encounter for follow-up examination after completed treatment for conditions other than malignant neoplasm | CPT/HCPCS: 99214 ==

== ENCOUNTER 2024-08-12 14:14 | Outpatient (CLI) | payer MEDICARE, MEDICAID, SELFPAY ==
--- NOTE | 2024-08-12 14:17 | MM_ITS ---
WS: [id number] BILATERAL 3D TOMOSYNTHESIS DIGITAL DIAGNOSTIC MAMMOGRAPHY WITH CAD CLINICAL INFORMATION: BREAST TENDERNESS IN MALE HISTORY: Bilateral breast pain and soreness. TECHNIQUE: Bilateral CC, MLO, and ML views. FINDINGS: Scattered fibroglandular densities bilaterally. Parenchymal tissue in the subareolar regions bilatera lly compatible with gynecomastia. Ultrasound is pending. No other suspicious abnormalities. ULTRASOUND BREAST BILATERAL TECHNIQUE: Ultrasound bilateral breast focused area of concern. CLINICAL INFORMATION: BREAST TENDERNESS IN MALE FINDINGS: Bilateral subareolar breast ultrasound demonstrates dense shadowing subareolar parenchymal tissue wit h a symmetric appearance bilaterally. This is most compatible with gynecomastia. No focal cystic or s olid lesions to target for biopsy. No other suspicious findings. MM/MM diag BI tomosynthesis [id number] IMPRESSION: DENSITY: There are scattered areas of fibroglandular density. BI-RADS: 2 - Benign. FOLLOW UP: See Report
== END 2024-08-12 14:15 | disposition home or self-care (01) ==
PROVIDERS: PCP Family Medicine; Visit Provider Nurse Practitioner Family
DX: N64.4 Mastodynia (principal); R92.323 Mammographic fibroglandular density, bilateral breasts; R92.8 Other abnormal and inconclusive findings on diagnostic imaging of breast
CPT/HCPCS: 76642; 77062; 99214; G0279

== ENCOUNTER → 2024-09-03 14:05 | Outpatient (BNVA) | payer MEDICARE, MEDICAID, SELFPAY | PROVIDERS: PCP Family Medicine; Visit Provider Internal Medicine | DX: I50.9 Heart failure, unspecified (principal); I48.11 Longstanding persistent atrial fibrillation; Z79.01 Long term (current) use of anticoagulants | CPT/HCPCS: 99214 ==

== ENCOUNTER 2024-09-08 06:26 | Outpatient (CLI) | payer MEDICARE, MEDICAID, SELFPAY ==
--- NOTE | 2024-09-08 | ECG_ITS ---
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 Interpretive Statements LEXISCAN SESTAMIBI STRESS TEST Procedure: At the baseline, the blood pressure was 101/65 mmHg with a heart rate of 63 bpm. The electrocardiogram showed atrial fibrillation, left bundle branch block with normal ST and T's. The Lexiscan was infused over a period of 20 seconds. A total of 0.4 mg of Lexiscan was infused. The stress phase was continued for a total of 5 minutes. Heart rate was at the end of stress phase was 109 bpm and a blood pressure of 102/72 mmHg. The EKG at the peak infusion revealed atrial fibrillation with no significant ST-T wave changes. Sestamibi was injected 20 seconds after the Lexiscan infusion. Blood pressure at the end of recovery phase was 100/57 mmHg with a heart rate of 78 bpm. Conclusion: 1. Normal EKG response to Lexiscan infusion 2. No Lexiscan induced chest pain or cardiac arrhythmia. 3. Normal blood pressure and heart rate response. 4. Sestamibi/sestamibi perfusion scan pending; see separate report. Electronically Signed On 09-29-2024 11:28:16 CDT by Cl Deluca M.D. [email or web address]
[2024-09-08 07:10] VITALS: BMI 40.8
--- NOTE | 2024-09-08 07:15 | NMCV_ITS ---
NM john perf SPECT r/s* [id number] Brandon Tuttle Age: 83 Gender: M : 1940 Exam Date: 09/08/2024 07:45 Ordering Phys: Cl Deluca M.D ([email or web address]) Technologist: ODETTE Kaufman Exam Location: [facility] Indications: cp STRESS TEST [facility] for [facility] IMAGE PROTOCOL Rest/Stress 1 Lexiscan Day Radiopharmaceutical Dose (mCi) Administration Site Administered by Rest: Tc-99m 10.5 IV ODETTE Kaufman Sestamibi Stress:Tc-99m 33 IV ODETTE Peraza Sestamibi Rest: 08-Sep-2024 60 Discovery 630 Stress: 08-Sep-2024 30 Discovery 630 0.4mg Lexiscan. Supine position only as patient was unable to lay prone. SPECT RESULTS Technical Quality: Good Raw Data Analysis: Normal Image Corrections: No attenuation or motion correction applied Summed Stress Score: 1 Summed Rest Score: 3 Summed Difference Score: 0 PERFUSION FINDINGS SPECT images demonstrate homogeneous tracer distribution throughout the myocardium. FUNCTIONAL RESULTS (calculated via Gated SPECT) Stress Image LV EF (%): 65 Stress EDV (mL):141 TID: 1.33 Stress ESV (mL):50 FUNCTIONAL FINDINGS: There is normal left ventricular systolic function. TID ratio is elevated IMPRESSIONS 1. Normal myocardial perfusion imaging with no evidence of ischemia 2. LV systolic function is normal. 3. TID ratio is elevated. However in absence of significant perfusion abnormalities, significance of this finding is equivocal. Cl Deluca MD (Electronically Signed) Final Date: 13 September 2024 21:38 S
[2024-09-08] MEDS: regadenoson 0.4 Mg/5 ml Syringe IVP (08:19)
[2024-09-08 08:48] VITALS: BP 100/57; PULSE 80
== END 2024-09-08 06:27 | disposition home or self-care (01) ==
PROVIDERS: PCP Family Medicine; Visit Provider Internal Medicine
DX: R07.9 Chest pain, unspecified (principal); R06.02 Shortness of breath; R93.1 Abnormal findings on diagnostic imaging of heart and coronary circulation
CPT/HCPCS: 36415; 78452; 93017; 96374; A9500; J2785

== ENCOUNTER 2024-09-15 06:40 | Outpatient (CLI) | payer MEDICARE, MEDICAID, SELFPAY ==
--- NOTE | 2024-09-15 06:15 | USCV_ITS ---
Brandon Tuttle Age: 83 Gender: M : 1940 Exam Date: 09/15/2024 06:55 Ordering Phys: Cl Deluca M.D ([email or web address]) Technologist: [place] [facility] [place]: chest pain BP: 130 / HR: 82 Rhythm: Sinus Technical Quality: Adequate MEASUREMENTS (Male / Female) Normal Values 2D ECHO LV Diastolic Diameter PLAX 5.0 cm 4.2 - 5.9 / 3.9 - 5.3 cm IVS Diastolic Thickness 1.5 cm 0.6 - 1.0 / 0.6 - 0.9 cm IVS Systolic Thickness 2.0 cm LVPW Diastolic Thickness 1.2 cm 0.6 - 1.0 / 0.6 - 0.9 cm LVPW Systolic Thickness 1.7 cm LVOT Diameter 1.9 cm LV Ejection Fraction 2D Teich 65.4 % LV Ejection Fraction MOD 4C 65.9 % LV Ejection Fraction MOD 2C 78.5 % LV Ejection Fraction 2C AL 79.6 % LA Diameter 4.4 cm RA Systolic Volume 4C AL 91.0 ml RA Systolic Volume 4C MOD 90.4 ml Aorta at Sinotubular Diameter 3.3 cm M-MODE LA Ao Ratio MM 1.6 AV Cusp Separation MM 1.4 cm DOPPLER AV Peak Velocity 321.0 cm/s LVOT Peak Velocity 83.0 cm/s AV Area Cont Eq vti 0.7 cm squared AV Area Cont Eq pk 0.8 cm squared MV Peak Velocity 111.0 cm/s MV Area PHT 4.5 cm squared Mitral E to A Ratio 2.4 TV Peak Velocity 267.5 cm/s TR Peak Velocity 274.0 cm/s TR Peak Gradient 30.0 mmHg TV Peak E Velocity 98.0 cm/s PV Peak Velocity 131.0 cm/s FINDINGS Left Ventricle Normal left ventricular size, systolic function and wall thickness, with no regional wall motion abnormalities. Left ventricular ejection fraction is estimated at 60 %. Grade III/IV diastolic dysfunction (restrictive filling pattern), severely elevated filling pressures. Right Ventricle The right ventricle is normal in size and function. Right Atrium The right atrium is normal in size. Left Atrium Moderately increased left atrial size. Mitral Valve Moderately thickened mitral valve. Moderate mitral annular calcification. No mitral valve stenosis. Trace mitral valve regurgitation. Aortic Valve Moderate aortic valve calcification. Moderate aortic valve stenosis, mean gradient 22.5 mmHg, TRUE 0.72 cm squared. Trace aortic valve regurgitation. Tricuspid Valve Trace tricuspid valve regurgitation. Pulmonic Valve Structurally normal pulmonic valve without significant stenosis. There is no pulmonic regurgitation. Pericardium Normal pericardium without effusion. Aorta Normal ascending aorta dimension. IVC The inferior vena cava appears normal. CONCLUSIONS Normal left ventricular size, systolic function and wall thickness, with no regional wall motion abnormalities. Left ventricular ejection fraction is estimated at 60 %. Grade III/IV diastolic dysfunction (restrictive filling pattern), severely elevated filling pressures. Moderate aortic valve calcification. Moderate aortic valve stenosis, mean gradient 22.5 mmHg, TRUE 0.72 cm squared. Trace aortic valve regurgitation. There is no pericardial effusion. Right atrial pressure is around 5 mm of mercury. David Thomason MD (Electronically Signed) Final Date: 15 September 2024 21:47 S
== END 2024-09-15 06:41 | disposition home or self-care (01) ==
LOC: RAD 06:41
PROVIDERS: PCP Family Medicine; Visit Provider Internal Medicine
DX: R07.9 Chest pain, unspecified (principal); R06.02 Shortness of breath; R93.1 Abnormal findings on diagnostic imaging of heart and coronary circulation; I34.81 Nonrheumatic mitral (valve) annulus calcification; I35.8 Other nonrheumatic aortic valve disorders; I35.0 Nonrheumatic aortic (valve) stenosis
CPT/HCPCS: 93306

== ENCOUNTER 2024-10-18 14:48 | Outpatient (CLI) | payer MEDICARE, MEDICAID, SELFPAY ==
[2024-10-18 15:55] LABS: Add Urine Microscopic? NO
[2024-10-18 15:57] LABS: Basophils % 0.6 %; Eosinophils # 0.1 10^3/uL (0.0-0.8); Eosinophils % 1.8 %; Hematocrit 40.8 % (37-53); Lymphocytes # 2.3 10^3/uL (0.8-4.8); Lymphocytes % 31.4 %; Mean Corpuscular HGB Conc 31.6 g/dL (30-55); Mean Corpuscular Hemoglobin 30.9 pg (27-33); Mean Corpuscular Volume 97.6 fl (82-101); Mean Platelet Volume 9.7 fL (7.4-10.4); Monocytes # 0.9 10^3/uL (0.2-0.9); Monocytes % 11.8 %; Neutrophils # 3.86 10^3/uL (1.8-7.7); Neutrophils % 53.7 %; Nucleated Red Blood Cells % 0 %; Platelet Count 207 10^3/cmm (157-399); Red Blood Count 4.18 10^6/uL (3.85-5.65); Red Cell Distribution Width 13.5 % (12.1-15.1); White Blood Count 7.19 10^3/uL (3.29-11.43)
[2024-10-18 16:02] LABS: Bilirubin Urine Neg (Negative); Blood Urine Neg (Negative); Glucose Urine UA Norm (Normal); Ketones Urine Negative (Negative); Leukocyte Esterase Urine Negative (Negative); Nitrate Urine Negative (Negative); Protein Urine Neg (Negative); Specific Gravity, Urine 1.015 (1.005-1.030); Urine Appearance Clear (CLEAR); Urine Color Yellow (Yellow); Urobilinogen Urine Norm (Negative); pH Urine 5 (5-7)
[2024-10-18 16:03] LABS: Charge for UA Resulting for Rev
[2024-10-18 16:27] LABS: Alanine Aminotransferase 17 U/L (0-41); Albumin Level 4.1 g/dL (3.5-5.2); Alkaline Phosphatase 80 U/L (40-130); Anion Gap 14.2 (5-19); Aspartate Amino Transferase 22 U/L (0-40); Blood Urea Nitrogen 44 mg/dL (8-23); Calcium 9.6 mg/dL (8.5-10.5); Carbon Dioxide 25 mmol/L (22-29); Chloride 101 mmol/L (98-107); Globulin 3.6 g/dL (1.3-4.6); Glucose 106 mg/dL (65-115); Osmolality Calculated 292 mOsm/kg (285-295); Potassium 5.2 mmol/L (3.5-5.1); Sodium 135 mmol/L (136-145); Total Bilirubin 0.2 mg/dL (0.15-1.2); Total Protein 7.7 g/dL (6.6-8.7)
== END 2024-10-18 14:49 | disposition home or self-care (01) ==
LOC: LAB 14:50
PROVIDERS: PCP Family Medicine; Visit Provider Orthopaedic Surgery
DX: Z01.818 Encounter for other preprocedural examination (principal)
CPT/HCPCS: 36415; 80053; 81003; 85025

== ENCOUNTER → 2024-10-22 09:36 | Outpatient (BNVA) | payer MEDICARE, MEDICAID, SELFPAY | PROVIDERS: PCP Family Medicine; Visit Provider Family Medicine | DX: Z01.818 Encounter for other preprocedural examination (principal); R94.31 Abnormal electrocardiogram [ECG] [EKG] | CPT/HCPCS: 80048; 93005 ==

== ENCOUNTER 2024-10-25 15:16 | Inpatient (IN) | payer MEDICARE, MEDICAID, SELFPAY ==
[2024-10-25] VITALS (25 sets, daily range): BP systolic 99–132; BP diastolic 59–91; PULSE 67–118; RESP 14–18; TEMP 36.1–36.8; O2SAT 93–100; BMI 40.1; BMI 41.1
[2024-10-25] MEDS: sodium chloride 0.9% 1,000 ML 30 ML IV (08:45)
[2024-10-25 09:21] LABS: Potassium 3.3 mmol/L (3.5-5.1)
--- NOTE | 2024-10-25 09:25 | ANES.PREANE2 ---
Pre-Anesthetic Assessment Height/Weight: Height 1.78 m Weight 127.006 kg Temp Pulse Resp BP Pulse Ox O2 Del Method 97.1 F L 67 18 117/84 96 Room Air 10/25/24 08:22 10/25/24 08:22 10/25/24 08:22 10/25/24 08:22 10/25/24 08:22 10/25/24 08:41 Preop Diagnosis: Painful orthopedic hardware Operation Date: 10/25/24 10:10 Proposed Procedures p Hardware Removal Back(Not Applicable) - Alex Orona DO Last intake: Intake Last Liquid Date 10/24/24 Last Liquid Time 22:00 Last Solid Date 10/24/24 Last Solid Time 22:00 Social No alcohol and No tobacco Exam alert, oriented x 3 and clear to auscultation bilaterally Irregular R/R Airway Submandibular: within normal limits Mallampati: Class II Pulmonary Chronic Obstructive Pulmonary Disease CV/HEM Arrythmia, Congestive Heart Failure and Hypertension GI Gastroesophageal Reflux Disease Metabolic Diabetes Mellitus, Hyperlipidemia and Morbid Obesity Musc/skel Osteoarthritis/DJD Anesthetic Plan ASA status: 3 Anesthesia: General Medications/Allergies Home Medications ?Medication ?Instructions ?Recorded ?Confirmed ?Last Taken ?Type acetaminophen 325 mg tablet 325 mg PO QID PRN Pain 12/15/19 10/22/24 10/21/24 History (Tylenol) lisinopril 20 mg tablet 20 mg PO DAILY 12/15/19 10/22/24 10/22/24 History apixaban 5 mg tablet (Eliquis) 5 mg PO BID 04/23/23 10/22/24 10/19/24 History bumetanide 1 mg tablet 1 mg PO DAILY 04/27/24 10/22/24 10/22/24 History oxycodone 10 mg tablet 10 mg PO Q4H PRN pain 30 days #180 10/05/24 10/22/24 10/25/24 06:30 Rx tabs Allergies Allergy/AdvReac Type Severity Reaction Status Date / Time No Known Allergies Allergy Verified 10/25/24 08:18 Current Medications Generic Name Dose Route Start Last Admin Trade Name Freq PRN Reason Stop Dose Admin Sodium Chloride 1,000 mls @ 30 mls/hr 10/25/24 07:30 10/25/24 08:45 Sodium Chloride 0.9% IV 10/26/24 07:29 30 mls/hr .Q24H SATURNINO Administration PFSH Anesthesia Medical History CHF (congestive heart failure), NYHA class III Spondylosis without myelopathy or radiculopathy, 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 Ugo Ramires: Thoracic laminotomy, placement of intraspinal, epidural paddle electrode arrays and placement of subcutaneous programmable pulse generator. History of sacroiliac joint dysfunction stereotactic guided left sacroiliac joint arthrodesis with instrumentation, Dr. De León, 12/2018 History of lumbar surgery (~12/02/14) L5-S1 PLIF with methylmethacrylate pedicle screw augmentation, Dr. 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
--- NOTE | 2024-10-25 09:30 | W.PM.OPSFHP ---
Same Day Surgery H&P Indication for Procedure/HPI DATE OF PROCEDURE: October 25, 2024 CHIEF COMPLAINT/INDICATIONFOR SURGICAL PROCEDURE: Low back pain PREOP DIAGNOSIS: Painful orthopedic hardware PLANNED PROCEDURE: Operation Date: 10/25/24 10:10 Proposed Procedures p Hardware Removal Back(Not Applicable) - Alex Orona, DO Medications/Allergies* Home Medications ?Medication ?Instructions ?Recorded ?Confirmed ?Type acetaminophen 325 mg tablet 325 mg PO QID PRN Pain 12/15/19 10/22/24 History (Tylenol) lisinopril 20 mg tablet 20 mg PO DAILY 12/15/19 10/22/24 History apixaban 5 mg tablet (Eliquis) 5 mg PO BID 04/23/23 10/22/24 History bumetanide 1 mg tablet 1 mg PO DAILY 04/27/24 10/22/24 History Allergies/Adverse Reactions Allergy/AdvReac Type Severity Reaction Status Date / Time No Known Allergies Allergy Verified 10/25/24 08:18 Current Medications: Generic Name Dose Route Start Last Admin Trade Name Freq PRN Reason Stop Dose Admin Sodium Chloride 1,000 mls @ 30 mls/hr 10/25/24 07:30 10/25/24 08:45 Sodium Chloride 0.9% IV 10/26/24 07:29 30 mls/hr .Q24H SATURNINO Administration Pertinent History/Comorbid Conditions* Medical History (Updated 09/03/24 @ 15:35 by Cl Deluca M.D) CHF (congestive heart failure), NYHA class III Spondylosis without myelopathy or radiculopathy, 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 Ugo Ramires: Thoracic laminotomy, placement of intraspinal, epidural paddle electrode arrays and placement of subcutaneous programmable pulse generator. History of sacroiliac joint dysfunction stereotactic guided left sacroiliac joint arthrodesis with instrumentation, Dr. De León, 12/2018 History of lumbar surgery (~12/02/14) L5-S1 PLIF with methylmethacrylate pedicle screw augmentation, Dr. 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
[2024-10-25 10:05] LABS: Potassium 5.2 mmol/L (3.5-5.1)
[2024-10-25] MEDS: ceFAZolin 2,000 mg SDV 2000 MG IVP ×2 (10:25→17:44)
[2024-10-25] MEDS: lidocaine-epi 1% 20 mL INJ INJECTION (10:50)
[2024-10-25] MEDS: vancomycin 1,000 MG SDV 1000 MG XX ×2 (11:14→11:52)
--- NOTE | 2024-10-25 11:56 | PM.OP ---
Operative Report Date of procedure: October 25, 2024 Pre-op diagnosis: Painful orthopedic hardware lumbar spine Post-op diagnosis: same Procedure done: Review of deep hardware from lumbar spine from L2 to the pelvis Surgeon: Alex Orona DO Estimated blood loss (mL): 50 Procedure: Review of deep hardware from lumbar spine from L2 to the pelvis Patient brought the op suite after MRI and she is placed in the prone position. All his major well-padded patient's prepped and draped partial fashion. Skin incision made over the previous skin incision. Wiltsie approach was used both sides to get dissect down to the screws and rods. The screws removed bilaterally from L2 to the pelvis. This was done by removing the screw caps followed by removing the rods followed by removing the screws. Wounds were then irrigated vancomycin powder was placed and 2 deep drains were placed in each pocket of the Wiltsie approach. Wounds were closed in layered fashion with Vicryl Monocryl suture. Sterile dressings were applied patient is transferred to the PACU in stable condition.
--- NOTE | 2024-10-25 12:27 | ECG_ITS ---
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 Measurements Intervals Onward Rate: 104 P: 0 IN: 0 QRS: -41 QRSD: 152 T: 132 QT: 363 QTc: 478 Interpretive Statements ATRIAL FIBRILLATION WITH RAPID VENTRICULAR RESPONSE LEFT AXIS DEVIATION [QRS AXIS < -30] LEFT BUNDLE BRANCH BLOCK [120+ ms QRS DURATION, 80+ ms Q/S IN V1/V2, 85+ ms R IN I/aVL/V5/V6] Compared to ECG 10/22/2024 09:45:22 Left-axis deviation now present Left bundle-branch block now present T-wave abnormality no longer present Possible ischemia no longer present Electronically Signed On 10-25-2024 21:37:31 CDT by Yulissa Kumar M.D. [email or web address]
[2024-10-25] MEDS: fentaNYL 50 mcg/mL INJ 2mL IVP (12:39)
[2024-10-25] MEDS: midazolam 1 mg/mL INJ 2 mL IVP (12:45)
--- NOTE | 2024-10-25 13:19 | ANE.PACU2 ---
Inpatient post-anesthesia follow up: Vital signs: Temperature 97.2 F Pulse Rate 89 Respiratory Rate 17 Blood Pressure 104/69 Pulse Oximetry 95 Oxygen Delivery Me thod Nasal Cannula Oxygen Flow Rate 2 Fraction of Inspir ed Oxygen Hydration adequate: Yes Nausea and vomiting: No Pain level: Actively managed Mental status: Baseline Additional Comments: EKG with previously noted wide complex (controlled VR); hospitalist consulted and report given.
--- NOTE | 2024-10-25 14:21 | PM.CONSULT ---
Providers/Reason For Consult Consulting Physician/Specialty*: Frase/Hospitalist Reason for Consult*: Change in EKG Requesting Physician: Dr Gerardo Attending Physician: Alex Orona DO Primary Care Provider: Damon Edmonds History of Present Illness History of Present Illness Brandon Tuttle is a 83 year old male who presented to [facility] on the day of admission for planned surgical procedure by Dr. Orona to remove hardware from L2 to pelvis. He tolerated surgical procedure well but during the procedure was noted to develop a wide-complex rhythm. Previously had narrow complex rhythm and is known to have had atrial fibrillation. During surgery there was no significant hypo or hypertension nor any tachycardia or bradycardia of significance to note. Rhythm at the beginning of procedure was narrow complex on the monitor and later during surgery noted to be wide-complex. Exactly when rhythm changed not clear at this time. EKG confirms atrial fibrillation with left bundle branch block. Previous EKGs did not demonstrate such. From a cardiac standpoint patient follows with Dr. Deluca. He had cardiac stress testing as well as echocardiogram within the past 2 months. Does have shortness of breath with exertion, known to have history of CHF in addition to atrial fibrillation. On diuretics and ahsan inhibitor. No recent reports of chest pain or shortness of breath at rest and is not complaining of either postoperatively. No nausea or vomiting. Is actually feeling better than he did prior to surgery in terms of back discomfort kenji is requesting something to eat. Has not noted any palpitations at any point in time today. Anesthesia called requesting consultation given the rhythm change on monitors and EKG changes. History is obtained from patient and his daughter present in the room after surgery. Case also discussed with anesthesia and PACU/OR area nursing staff caring for Mr Tuttle. 12 lead EKG done in the PACU shows atrial fibrillation at 104 bpm and left bundle branch block by my interpretation. Review of Systems General: Reports: Other (ROS as per HPI or as noted here) Const: Denies: fever(s) Card: Reports: dyspnea on exertion; Denies: chest pain, palpitations, irregular heart rhythm, edema, lightheadedness or orthopnea Resp: Denies: dyspnea (none at rest), productive cough or non-productive cough GI: Denies: nausea, vomiting, change in bowel habits or hematochezia : Denies: change in urine stream or hematuria Medications/Allergies Home Medications ?Medication ?Instructions ?Recorded ?Confirmed ?Last Taken ?Type acetaminophen 325 mg tablet 325 mg PO QID PRN Pain 12/15/19 10/22/24 10/21/24 History (Tylenol) lisinopril 20 mg tablet 20 mg PO DAILY 12/15/19 10/22/24 10/22/24 History apixaban 5 mg tablet (Eliquis) 5 mg PO BID 04/23/23 10/22/24 10/19/24 History bumetanide 1 mg tablet 1 mg PO DAILY 04/27/24 10/22/24 10/22/24 History oxycodone 10 mg tablet 10 mg PO Q4H PRN pain 30 days #180 10/05/24 10/22/24 10/25/24 06:30 Rx tabs Allergies Allergy/AdvReac Type Severity Reaction Status Date / Time No Known Allergies Allergy Verified 10/25/24 08:18 Current Medications Generic Name Dose Route Start Last Admin Trade Name Freq PRN Reason Stop Dose Admin Fentanyl 50 mcg 10/25/24 07:19 10/25/24 12:39 Fentanyl 50 Mcg/Ml Inj 2ml IVP 10/26/24 07:19 50 mcg Q5M PRN Administration Pain level 6-10 PACU Phase I Sodium Chloride 1,000 mls @ 30 mls/hr 10/25/24 07:30 10/25/24 08:45 Sodium Chloride 0.9% IV 10/26/24 07:29 30 mls/hr .Q24H SATURNINO Administration PFSH Acute PFSH: Medical History (Updated 10/25/24 @ 16:54 by Altagracia Zhang MD) Chronic kidney disease CHF (congestive heart failure), NYHA class III Aortic stenosis, moderate echo 09/2024 TRUE 0.72 cm 2, mean gradient 22.5 mmHg Spondylosis without myelopathy or radiculopathy, 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, lumbar region Atrial fibrillation Otitis media Lumbar post-laminectomy syndrome Spondylolisthesis, lumbar region Lumbar stenosis with neurogenic claudication Postlaminectomy syndrome Surgical History (Updated 10/25/24 @ 16:33 by Altagracia Zhang MD) History of laminectomy (~01/2020) thoracic laminectomy with placement of intraspinal epidural paddle electrode arrays, subcuntaneous pulse generator History of surgery (~06/2022) Removal of thoracic spine neurostimulator, Dr Orona Status post hardware removal (05/2023) from lumbar spine, Dr Orona Status post lumbar spinal fusion (11/26/23) Dr Orona, L2-S1/pelvis Status post hardware removal (10/25/24) Dr Orona, L2-pelvis S/P cataract surgery Status post insertion of spinal cord stimulator 01/13/2020 Dr. Ugo Ramires: Thoracic laminotomy, placement of intraspinal, epidural paddle electrode arrays and placement of subcutaneous programmable pulse generator. History of sacroiliac joint dysfunction stereotactic guided left sacroiliac joint arthrodesis with instrumentation, Dr. De León, 12/2018 History of lumbar surgery (~12/02/14) L5-S1 PLIF with methylmethacrylate pedicle screw augmentation, Dr. 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 Normocephalic. Extraocular movements are intact. Moist mucous membranes. Neck is large but supple. Lungs are clear to auscultation bilaterally. Cardiovascular exam reveals regular rhythm, no murmurs gallops or rubs. Abdomen is soft, nontender. Sensation is intact to light touch and equal in both thighs and calves. Strength is equal with foot pumps bilaterally, handgrip equal. Speech is clear, face symmetric. Data 10/25/24 09:32 Other data: Lexiscan 09/08/2024 IMPRESSIONS 1. Normal myocardial perfusion imaging with no evidence of ischemia 2. LV systolic function is normal. 3. TID ratio is elevated. However in absence of significant perfusion abnormalities, significance of this finding is equivocal. Conclusion: 1. Normal EKG response to Lexiscan infusion 2. No Lexiscan induced chest pain or cardiac arrhythmia. 3. Normal blood pressure and heart rate response. 4. Sestamibi/sestamibi perfusion scan pending; see separate report. Electronically Signed On 09-29-2024 11:28:16 CDT by Cl Deluca M.D. Echo CONCLUSIONS Normal left ventricular size, systolic function and wall thickness, with no regional wall motion abnormalities. Left ventricular ejection fraction is estimated at 60 %. Grade III/IV diastolic dysfunction (restrictive filling pattern), severely elevated filling pressures. Moderate aortic valve calcification. Moderate aortic valve stenosis, mean gradient 22.5 mmHg, TRUE 0.72 cm squared. Trace aortic valve regurgitation. There is no pericardial effusion. Right atrial pressure is around 5 mm of mercury. A&P Assessment and plan (1) Status post hardware removal: POD [address] Orona. -General anesthesia -Pain control as per orthopedics -On cefazolin post-op regimen, s/p vancomycin in OR -Has SCDs, to resumeeliquis when okay'ed by Dr Orona -Stool softeners, laxatives as needed -PT to see -Plan is for home with home health when stable (2) Atrial fibrillation: Chronically on anticoagulation. Has not been requiring rate control. Perioperatively heart rate into the low 100s at times and with a wide-complex appearance due to left bundle branch block. I reviewed the case with Dr. Deluca, patient's electronic installer. Within the last 2 months he has had stress testing and echocardiogram. Patient himself has not had any complaints of any new symptoms In the outpatient setting and is not currently complaining of any cardiopulmonary symptoms such as chest pain, palpitations or shortness of breath at rest. He does have shortness of breath with exertion. -Will check serial cardiac enzymes and EKGs -Check BNP -Telemetry monitoring -No further work up indicated at this time given known history of atrial fibrillation, current rate and lack of symptoms -Monitor for any symptom development -Anticipate resumption of apixaban postoperatively when appropriate from postsurgical standpoint -Has an appointment with Dr Deluca already scheduled for 11/09, same day as follow up planned with Dr Orona. Qualifiers: Atrial fibrillation type: longstanding persistent Qualified Code(s): I48.11 - Longstanding persistent atrial fibrillation (3) Aortic stenosis, moderate: New finding on recent echo. No symptoms atributable to this described. -Monitor volume status during hospital stay (4) CHF (congestive heart failure), NYHA class III: Chronically on bumetanide and lisinopril. Previously on spironolactone per outpatient pharamacy records but has had some elevated postassium levels and I suspect this has been stopped due to this. Patient reports taking potassium at home previously also but is no longer taking. -Resume home lisinopril 20 mg daily tomorrow along with home Bumex 1 mg daily -Need to clarify if is or is not on spironolactone chronically prior to discharge -Orders to stop fluid after one liter written Qualifiers: Congestive heart failure type: diastolic Congestive heart failure chronicity: chronic Qualified Code(s): I50.32 - Chronic diastolic (congestive) heart failure (5) Chronic kidney disease: Baseline creatinine previously around 1, but recently 1.3-1.5 here. No longer on spironolactone from what I can tell though remains on bumex and lisinopril. -Monitor renal function and output while here -Renal dose meds if indicated Qualifiers: Chronic kidney disease stage: stage 3 (moderate) Chronic kidney disease stage 3 subtype: stage 3a (GFR 45-59) Qualified Code(s): N18.31 - Chronic kidney disease, stage 3a Plan Inpatient admission VTE prophylaxis: SCDs, eliquis to resume when okay with Dr Orona at 5mg bid Antibiotics: Perioperative cefazolin continues per protocol, s/p vancomycin Pending studies: serial EKG/troponin, bmp, bnp, mag Telemetry: ordered due to rhythm change during surgery Vance: none Line(s): peripheral IVs Disposition plan: Home with outpatient follow up to Dr Orona and Dr. Deluca scheduled for 11/09. Post op plans otherwise as per Dr Orona. Need to clarify that eliquis, bumex and lisinoril are only medications for home use still taking (not potassium or spironolactone). Recommend folllow up with PCP a week after discharge with BMP to check electrolytes Code Status: Full Code Supportive care otherwise Findings, concerns and plans were discussed with patient and his daughter in the room and they both were given an opportunity to ask questions Thank you for consultation, will follow while here PDMP PDMP Reviewed: Last Reviewed 10/25/24 16:48 by Altagracia Zhang MD Consult Attestations Medical Necessity Statement: as per attending Diagnoses Status post hardware removal Z98.890 Longstanding persistent atrial fibrillation I48.11 Atrial fibrillation type: longstanding persistent Aortic stenosis, moderate I35.0 Chronic diastolic congestive heart failure, NYHA class 3 I50.32 Congestive heart failure type: diastolic Congestive heart failure chronicity: chronic Stage 3a chronic kidney disease N18.31 Chronic kidney disease stage: stage 3 (moderate) Chronic kidney disease stage 3 subtype: stage 3a (GFR 45-59)
--- NOTE | 2024-10-25 15:19 | PC.NURSE ---
Pt's daughter accoompanied us to floor. Pt denied pain. Assessed incision site and bilateral drains with LENORA Hough at bedside. Verified vitals with FIRE AND EXPLOSION INVESTIGATOR.
[2024-10-25] MEDS: lactated ringers 1,000 ML 90 ML IV (16:00)
--- NOTE | 2024-10-25 16:21 | ECG_ITS ---
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 Measurements Intervals [place] Rate: 77 P: 0 LA: 0 QRS: -39 QRSD: 147 T: 132 QT: 396 QTc: 448 Interpretive Statements ATRIAL FIBRILLATION LEFT AXIS DEVIATION [QRS AXIS < -30] LEFT BUNDLE BRANCH BLOCK [120+ ms QRS DURATION, 80+ ms Q/S IN V1/V2, 85+ ms R IN I/aVL/V5/V6] Compared to ECG 10/25/2024 12:29:50 No significant changes Electronically Signed On 10-25-2024 21:30:04 CDT by Yulissa Kumar M.D. [email or web address] [id number]
--- NOTE | 2024-10-25 16:32 | XR_ITS ---
WS: [id number] Lumbar spine, C-arm fluoroscopy views, 10/25/2024 Clinical Data: Review of deep hardware from lumbar spine from L2 to the pel Comparison: Lumbar spine, 04/27/2024 Findings: Dr. Orona removed the posterior lumbar fusion components. XR/XR lumbar spine 2-3V* [id number] Impression: Removal of posterior lumbar fusion components.
[2024-10-25] MEDS: docusate sodium 100 mg Capsule PO (17:07)
[2024-10-25] MEDS: ketorolac 30 mg/mL INJ IVP (17:07)
[2024-10-25 17:25] LABS: Troponin(5th) Baseline 34 ng/L (0-15)
[2024-10-25 17:33] LABS: Blood Urea Nitrogen 23 mg/dL (8-23); Calcium 8.7 mg/dL (8.5-10.5); Carbon Dioxide 22 mmol/L (22-29); Chloride 102 mmol/L (98-107); Glucose 146 mg/dL (65-115); Magnesium 1.7 mg/dL (1.7-2.3); NT Pro B Type Natriuretic Pept 404 pg/mL (0-450); Osmolality Calculated 282 mOsm/kg (285-295); Sodium 133 mmol/L (136-145)
[2024-10-25] MEDS: oxyCODONE-APAP 10-325 mg Tablet PO (18:13)
--- NOTE | 2024-10-25 18:21 | ECG_ITS ---
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 Measurements Intervals [place] Rate: 73 P: 0 [place]: 0 QRS: -25 QRSD: 148 T: 141 QT: 402 QTc: 445 Interpretive Statements ATRIAL FIBRILLATION LEFT BUNDLE BRANCH BLOCK [120+ ms QRS DURATION, 80+ ms Q/S IN V1/V2, 85+ ms R IN I/aVL/V5/V6] Compared to ECG 10/25/2024 16:34:44 Left-axis deviation no longer present Electronically Signed On 10-25-2024 21:35:58 CDT by Yulissa Kumar M.D. [email or web address]
--- OUTSIDE RECORDS SUMMARY | 2024-10-25 18:23 | XMS_ITS | Encounter Summary ---
Author Organization [facility] Address [address] [place] [address] Care Team Providers Care Discharge Rn Name Role Phone Damon Edmonds MD Primary Care Provider [phone] [phone] Encounter Details Date Type Department Care Team (Late st Contact Info) Description 09/28/2024 Abstract [facility] Family Medicine [place] [address] [facility] [address] [place] [address] Provider, Abstract NO ADDRESS ON FILE Social History Tobacco Use Types Packs/Day Years Used Date Smoking Tobacco: Never Passive Smoke Exposure: Never Smokeless Tobacco: Never Alcohol Use Standard Drinks/Week Comments No 0 (1 standard drink = 0.6 oz pur e alcohol) Financial Resource Strain Answer Date R ecorded How hard is it for you to pa y for the very basics like food, housing, medical care, and heating? Not hard at all 06/12/2022 Food Insecurity Answer Date Recorded In the past 12 months, have you worried that your food would run out before you had money to buy more? Never true 06/12/2022 In the past 12 months, did y ou run out of food and didn't have money to buy more? Never true 06/12/2022 Transportation Needs Answer Date Record ed In the past 12 months, has l ack of transportation kept you from medical appointments or from getting medications? No 06/12/2022 Lack of Transportation (Non-Medical) Not on file 06/12/2022 Feeling Safe Answer Date Recorded Are you in a relationship wi th someone who hurts you emotionally and/or physically? No 08/31/2024 Sex and Gender Information Value Date Recorded Sex Assigned at Not on file Legal Sex Male 11:15 AM PAYABLE REPRESENTATIVE Gender Identity Not on file Sexual Orientation Not on file documented as of this encounter Plan of Treatment Upcoming Encounters Date Type Department Care Team (Late st Contact Info) Description 11/26/2024 11:40 AM CDT Office Visit [facility] [address] [place] [address] Damon Edmonds MD [address] [place] [phone] 02/17/2025 11:00 AM CDT Office Visit [facility] [address] [place] [address] Damon Edmonds MD [address] [place] [address] documented as of this encounter Visit Diagnoses Not on filedocumented in this encounter Additional Health Concerns Assessment Noted Time PHQ-9 Depression Total Score: 2 07/19/19 25 1:52 PM PAYABLE REPRESENTATIVE documented as of this encounter Care Teams Discharge Rn Relationship Specialty Start Date End Date Damon Edmonds MD [address] [place] [address] PCP - General Family Practice 07/26/21 documented as of this encounter
--- OUTSIDE RECORDS SUMMARY | 2024-10-25 18:23 | XMS_ITS | Encounter Summary ---
Author Organization [facility] Address [address] [place] [address] Care Team Providers Care Departure Clerk Name Role Phone Damon Edmonds MD Primary Care Provider [phone] Encounter Details Date Type Department Care Team (Late st Contact Info) Description 09/29/2024 External Device Data [facility] [facility] Provider, Abstract NO ADDRESS ON FILE Social [...] on file Legal Sex Male 11:15 AM SANITATION DIRECTOR Gender Identity Not on file Sexual Orientation Not on file documented as of this encounter Plan of Treatment Upcoming Encounters Date Type Department Care Team (Late st Contact Info) Description 11/26/2024 11:40 AM CDT Office Visit [facility] [address] [place] [phone] Damon Edmonds MD [address] [place] [address] 02/17/2025 11:00 AM CDT Office Visit [facility] [address] [place] [phone] Damon Edmonds MD [address] [place] [phone] documented as of this encounter Visit Diagnoses Not on filedocumented in this encounter Additional Health Concerns Assessment Noted Time PHQ-9 Depression Total Score: 2 07/19/19 25 1:52 PM SANITATION DIRECTOR documented as of this encounter Care Teams Departure Clerk Relationship Specialty Start Date End Date Damon Edmonds MD [address] [place] [address] PCP - General Family Practice 07/26/21 documented as of this encounter
--- OUTSIDE RECORDS SUMMARY | 2024-10-25 18:23 | XMS_ITS | Encounter Summary ---
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 Gender Identity Not on file Sexual Orientation Not on file documented as of this encounter Plan of Treatment Upcoming Encounters Date Type Department Care Team (Late st Contact Info) Description 11/26/2024 11:40 AM CDT Office Visit [facility] [address] [place] [address] Damon Edmonds MD [address] [place] [phone] 02/17/2025 11:00 AM CDT Office Visit [facility] [address] [place] [address] Damon Edmonds MD [address] [place] [address] documented as of this encounter Visit Diagnoses Not on filedocumented in this encounter Additional Health Concerns Assessment Noted Time PHQ-9 Depression Total Score: 2 07/19/19 25 1:52 PM ROLLOFF TRUCK DRIVER documented as of this encounter Care Teams Car Sealer Relationship Specialty Start Date End Date Damon Edmonds MD [address] [place] [phone] PCP - General Family Practice 07/26/21 documented as of this encounter
--- OUTSIDE RECORDS SUMMARY | 2024-10-25 18:23 | XMS_ITS | Encounter Summary ---
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 Gender Identity Not on file Sexual Orientation Not on file documented as of this encounter Plan of Treatment Upcoming Encounters Date Type Department Care Team (Late st Contact Info) Description 11/26/2024 11:40 AM CDT Office Visit [facility] [address] [place] [address] Damon Edmonds MD [address] [place] [phone] 02/17/2025 11:00 AM CDT Office Visit [facility] [address] [place] [address] Damon Edmonds MD [address] [place] [address] documented as of this encounter Visit Diagnoses Not on filedocumented in this encounter Additional Health Concerns Assessment Noted Time PHQ-9 Depression Total Score: 2 07/19/19 25 1:52 PM HIGH PRESSURE KETTLE OPERATOR documented as of this encounter Care Teams Fire Prevention Forester Relationship Specialty Start Date End Date Damon Edmonds MD [address] [place] [phone] PCP - General Family Practice 07/26/21 documented as of this encounter
--- OUTSIDE RECORDS SUMMARY | 2024-10-25 18:23 | XMS_ITS | Encounter Summary ---
Author Organization [facility] Address [address] [facility] Attn: [place] [address] Care Team Providers Care Laborer Cement Gun Placing Name Role Phone Damon Edmonds MD Primary Care Provider [phone] Encounter Details Date Type Department Care Team (Late st Contact Info) Description 10/12/2024 External Device Data Initial Department [address] [place] [address] ATTN: [place] [address] [facility], Social History Tobacco Use Types Packs/Day [...] on file Legal Sex Male 11:15 AM GEOPHYSICAL COMPUTER Gender Identity Not on file Sexual Orientation Not on file documented as of this encounter Plan of Treatment Upcoming Encounters Date Type Department Care Team (Late st Contact Info) Description 11/26/2024 11:40 AM CDT Office Visit [facility] [address] [place] [address] Damon Edmonds MD [address] [place] [phone] 02/17/2025 11:00 AM CDT Office Visit [facility] [address] [place] [phone] Damon Edmonds MD [address] [place] [phone] documented as of this encounter Visit Diagnoses Not on filedocumented in this encounter Additional Health Concerns Assessment Noted Time PHQ-9 Depression Total Score: 2 07/19/19 25 1:52 PM GEOPHYSICAL COMPUTER documented as of this encounter Care Teams Laborer Cement Gun Placing Relationship Specialty Start Date End Date Damon Edmonds MD [address] [place] [address] PCP - General Family Practice 07/26/21 documented as of this encounter
--- OUTSIDE RECORDS SUMMARY | 2024-10-25 18:23 | XMS_ITS | Encounter Summary ---
Author Organization [facility] Address [address] [place] [address] Care Team Providers Care Security Inspector Name Role Phone Damon Edmonds MD Primary Care Provider [phone] [phone] Encounter Details Date Type Department Care Team (Late st Contact Info) Description 09/30/2024 Abstract [facility] [place] 104 [facility] 60 [place] [address] Provider, Abstract NO ADDRESS ON [...] on file Legal Sex Male 11:15 AM INVOICE CHECKER Gender Identity Not on file Sexual Orientation Not on file documented as of this encounter Progress Notes * Lolly Du - 09/30/2024 1:27 PM CDT . documented in this encounter Plan of Treatment Upcoming Encounters Date Type Department Care Team (Late st Contact Info) Description 11/26/2024 11:40 AM CDT Office Visit [facility] [address] [place] [phone] Damon Edmonds MD [address] [place] [address] 02/17/2025 11:00 AM CDT Office Visit [facility] [address] [place] [phone] Damon Edmonds MD [address] [address] documented as of this encounter Visit Diagnoses Not on filedocumented in this encounter Additional Health Concerns Assessment Noted Time PHQ-9 Depression Total Score: 2 07/19/19 25 1:52 PM INVOICE CHECKER documented as of this encounter Care Teams Security Inspector Relationship Specialty Start Date End Date Damon Edmonds MD [address] [place] [address] PCP - General Family Practice 07/26/21 documented as of this encounter
--- OUTSIDE RECORDS SUMMARY | 2024-10-25 18:23 | XMS_ITS | Encounter Summary ---
Author Organization [facility] Address 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 Gender Identity Not on file Sexual Orientation Not on file documented as of this encounter Plan of Treatment Upcoming Encounters Date Type Department Care Team (Late st Contact Info) Description 11/26/2024 11:40 AM CDT Office Visit [facility] [address] [place] [address] Damon Edmonds MD [address] [place] [phone] 02/17/2025 11:00 AM CDT Office Visit [facility] [address] [place] [address] Damon Edmonds MD [address] [place] [address] documented as of this encounter Visit Diagnoses Not on filedocumented in this encounter Additional Health Concerns Assessment Noted Time PHQ-9 Depression Total Score: 2 07/19/19 25 1:52 PM MASTER CONTROL OPERATOR documented as of this encounter Care Teams Software Recruiter Relationship Specialty Start Date End Date Damon Edmonds MD [address] [place] [address] PCP - General Family Practice 07/26/21 documented as of this encounter
--- OUTSIDE RECORDS SUMMARY | 2024-10-25 18:23 | XMS_ITS | Clinical Summary ---
Author Organization [facility] Address [address] [place] [address] Care Team Providers Care Car Changer Name Role Phone Jessica Mccabe MD Primary Care Provider Allergies No known active allergies Medications acetaminophen (TYLENOL) 500 mg tablet Take 500 mg by mouth every 6 hours as needed. Active furosemide (Lasix) 20 mg tabletIndications :Atrial fibrillation, unspecified type (CMS/HCC) Take 1 Tablet (20 mg) by mouth daily. 30 Tablet 5 1 Active warfarin (COUMADIN) 5 mg tabletIndications :Persistent atrial fibrillation (CMS/HCC) TAKE BY MOUTH DAILY DIRECTED BY PROVIDER 90 Tablet 1 Active lisinopriL (PRINIVIL) 20 mg tablet Take 1 tablet by mouth once daily 90 Tablet 1 Active Active Problems Problem Noted Date Diagnosed Date Morbid obesity with body mass index of 40.0-49.9 06/26/2020 Anticoagulated on Coumadin 12/23/2017 History of squamous cell carcinoma of skin 01/02 Post-operative state 11/26/2013 Abnormal EKG 12/08/2012 Chest pain 12/08/2012 Jaw pain 12/08/2012 Heel spur 04/06/2012 Low back pain, non-specific 08/01/2011 DDD (degenerative disc disease), lumbar 08/01/19 12 Overview (08/01/2011): All 5 levels Facet arthritis of lumbosacral region 08/01/2011 Overview (04/18/2016): Lumbar fusion 2014 Assessment & Plan (04/18/2016 3:26 PM CDT): Stable. Lumbar fusion 2014 HTN (hypertension) 03/25/2011 Elevated PSA 03/25/2011 Overview (03/25/2011): PSA: 6.2 (12/22); 3.3 (11/21) Resolved Problems Problem Noted Date Diagnosed Date Resolved Date Right foot drop 05/18/2010 08/01/2011 Stenosis, spinal, lumbar 05/18/2010 Overview (05/18/2010): To right at L3-4 and L4-5 Lumbar radiculopathy 04/24/2010 012 Polymyalgia rheumatica 06/29 Immunizations Immunization Administration Dates Next Due (TDVAX)(7 YRS UP) TETANUS AN D DIPHTHERIA TOXOIDS, ADSORBED (2 LF OF TETANUS TOXOID AND 2 LF OF DIPHTHERIA TOXOID), 0.5ML (PF), IM 06/01/2001 (TENIVAC)(7 YRS UP) TETANUS AND DIPHTHERIA TOXOIDS, ADSORBED (5 LF OF TETANUS TOXOID AND 2 LF OF DIPHTHERIA TOXOID), 0.5ML (PF), IM 03/26/2016 Influenza Seasonal Unspecifi ed Formulation IM 06/03/2003,05/01/2001,07/02/2000,04/24 Influenza Vaccine High Dose 65+ Yrs IM 04/19/2020,05/19/2019,04/09/2018 04/09/2019 Family History Medical History Relation Name Comments Cancer Father Diabetes Mother Heart Disease Mother Hypertension Mother Relation Name Status Comments Father Mother Social History Tobacco Use Types Packs/Day Years Used Date Smoking Tobacco: Never Smokeless Tobacco: Never Tobacco Cessation:Counseling Given: No Alcohol Use Standard Drinks/Week Comments No 0 (1 standard drink = 0.6 oz pur e alcohol) Sex and Gender Information Value Date Recorded Sex Assigned at Not on file Legal Sex Male 3:05 AM INTERNAL RECRUITER Gender Identity Not on file Sexual Orientation Not on file Occupation Industry Job Start Date Job End Date Not on file Not on file Not on file Not on file Last Filed Vital Signs Vital Sign Reading Time Taken Comments Blood Pressure 130/70 09/19/2020 11:21 AM INTERNAL RECRUITER Pulse 67 09/19/2020 11:04 AM INTERNAL RECRUITER Temperature 36.6 ??C (97.8 ??F) 09/19/2020 11:[address] Respiratory Rate 17 09/19/2020 11:04 AM INTERNAL RECRUITER Oxygen Saturation 98% 09/19/2020 11:04 AM INTERNAL RECRUITER Inhaled Oxygen Concentration - - Weight 125 kg (275 lb 9.6 oz) 09/19/2020 11:04 A M INTERNAL RECRUITER Height 172.7 cm (5' 8 ) 09/19/2020 11:04 AM INTERNAL RECRUITER Body Mass Index 41.9 09/19/2020 11:04 AM INTERNAL RECRUITER Plan of Treatment Health Maintenance Due Date Last Done Comments PNEUMOCOCCAL VACCINE 50+ YEA RS (1 of 2 - PCV) 1959 Traditional Medicare (ACO) A nnual Wellness Visit 1959 ZOSTER VACCINE (1 of 2) 1988 RSV VACCINE (60+ or ) (1 - 1-dose 75+ series) 2013 DTAP/TDAP/TD VACCINES (1 - Tdap) 03/27/2016 03/26/20 16, 06/01/2001 INFLUENZA VACCINE (#1) 2024 0, 05/19/2019, 04/09/2018, Additional history exists Colorectal Cancer Screening Discontinued FIT/FOBT Q 1 year Discontinued 04/24/1999 COLORECTAL SCREENING Discontinued FIT-DNA Q 3 years Discontinued Flex Sig/CT Colonography Q 5 years Discontinued Insurance MEDICARE PART A AND B [place] Advance Directives For more information, please contact: [phone] * Full Code (Latest Code Status on File) Date Activated Date Inactivated Comments 11/17/2013 11:56 AM 11/17/2013 5:10 PM * Full Code Date Activated Date Inactivated Comments 11/17/2013 8:19 AM 11/17/2013 11:56 AM * Full Code Date Activated Date Inactivated Comments 05/29/2009 12:01 PM 05/30/2009 2:01 AM * Full Code Date Activated Date Inactivated Comments 11/10/2008 1:00 PM 11/11/2008 2:01 AM Care Teams Car Changer Relationship Specialty Start Date End Date Jessica Mccabe MD [address] [address] PCP - General Family Practice 05/07/18
--- OUTSIDE RECORDS SUMMARY | 2024-10-25 18:23 | XMS_ITS | Encounter Summary ---
Author Organization [facility] Address 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 Gender Identity Not on file Sexual Orientation Not on file documented as of this encounter Plan of Treatment Upcoming Encounters Date Type Department Care Team (Late st Contact Info) Description 11/26/2024 11:40 AM CDT Office Visit [facility] [address] [place] [phone] Damon Edmonds MD [address] [place] [address] 02/17/2025 11:00 AM CDT Office Visit [facility] [address] [place] [phone] Damon Edmonds MD [address] [place] [phone] documented as of this encounter Visit Diagnoses Not on filedocumented in this encounter Additional Health Concerns Assessment Noted Time PHQ-9 Depression Total Score: 2 07/19/19 25 1:52 PM MANAGER GENERATION documented as of this encounter Care Teams Thread Marker Relationship Specialty Start Date End Date Damon Edmonds MD [address] [place] [address] PCP - General Family Practice 07/26/21 documented as of this encounter
--- OUTSIDE RECORDS SUMMARY | 2024-10-25 18:23 | XMS_ITS | Encounter Summary ---
Author Organization [facility] Address [address] [place] [address] Care Team Providers Care Gin Pole Operator Name Role Phone Damon Edmonds MD Primary Care Provider [phone] [phone] Reason for Visit * Reason Comments Sore Throat Losing his voice - b een going on for a little while Encounter Details Date Type Department Care Team (Late st Contact Info) Description 09/28/2024 2:00 PM CDT Office Visit [facility] Family Medicine [place] 104 [facility] 60 [place] [address] Marissa Rushing NP [address] [place] [phone] Sore throat (Primary Dx); Acute pharyngitis, unspecified etiology Social History Tobacco Use Types Packs/Day Years [...] on file 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 Gender Identity Not on file Sexual Orientation Not on file documented as of this encounter Last Filed Vital Signs Vital Sign Reading Time Taken Comments Blood Pressure 128/72 09/28/2024 1:24 PM CDT Pulse 81 09/28/2024 1:24 PM CDT Temperature 36.6 ??C (97.9 ??F) 09/28/2024 1:24 PM CD T Respiratory Rate 20 09/28/2024 1:24 PM CDT Oxygen Saturation 98% 09/28/2024 1:24 PM CDT Inhaled Oxygen Concentration - - Weight 130.2 kg (287 lb) 09/28/2024 1:24 PM CDT Height 177.8 cm (5' 10 ) 09/28/2024 1:24 PM CDT Body Mass Index 41.18 09/28/2024 1:24 PM CDT documented in this encounter Progress Notes * Marissa Rushing NP - 09/28/2024 2:13 PM CDT [facility] [place] 09/28/2024 Subjective: Brandon Tuttle is a 83 y.o. male who comes today for evaluation of Sore Throat (Losing his voice -been going on for a little while ) . History of Present Illness The patient is an 83-year-old male who presents for evaluation of a sore throat, back pain, and hoarseness. He reports experiencing generalized malaise, with the onset of symptoms including a severe sore throat and headache upon awakening this morning. He has not experienced any episodes of vomiting or fever. Additionally, he describes an unusual taste in his mouth and throat. A strep swab test has not been conducted. Review of Systems Constitutional: Positive for malaise/fatigue. Negative for chills and fever. HENT: Positive for sore throat. Respiratory: Negative for shortness of breath. Cardiovascular: Negative for chest pain. Musculoskeletal: Negative for myalgias. All other systems reviewed and are negative. Objective: Vitals: 09/28/24 1324 Temp: 97.9 ??F (36.6 ??C) Pulse: 81 BP: 128/72 Resp: 20 SpO2: 98% Physical Exam Vitals and nursing note reviewed. Constitutional: Appearance: Normal appearance. HENT: Head: Normocephalic and atraumatic. Right Ear: Tympanic membrane, ear canal and external ear normal. Left Ear: Tympanic membrane, ear canal and external ear normal. Nose: Nose normal. Mouth/Throat: Mouth: Mucous membranes are moist. Pharynx: Oropharynx is clear. Posterior oropharyngeal erythema present. Tonsils: Tonsillar exudate present. 2+ on the right. 2+ on the left. Eyes: Pupils: Pupils are equal, round, and reactive to light. Cardiovascular: Rate and Rhythm: Normal rate and regular rhythm. Pulses: Normal pulses. Heart sounds: Normal heart sounds. No murmur heard. Pulmonary: Effort: Pulmonary effort is normal. Breath sounds: Normal breath sounds. Abdominal: General: Abdomen is flat. Bowel sounds are normal. Palpations: Abdomen is soft. Musculoskeletal: General: Normal range of motion. Cervical back: Normal range of motion and neck supple. Skin: General: Skin is warm and dry. Capillary Refill: Capillary refill takes less than 2 seconds. Neurological: General: No focal deficit present. Mental Status: He is alert and oriented to person, place, and time. Psychiatric: Mood and Affect: Mood normal. Behavior: Behavior normal. Past medical history, surgical history and social history reviewed. Past Medical History: Diagnosis Date A-fib ([facility]) Actinic keratosis Arthropathy, unspecified, site unspecified Congestive heart failure ([facility]) Headache(784.0) History of degenerative disc disease Unspecified essential hypertension Assessment/Plan: ICD-10-CM ICD-9-CM 1. Sore throat J02.9 462 POC RAPID STREP A ANTIGEN amoxicillin (AMOXIL) 500 mg Tablet 2. Acute pharyngitis, unspecified etiology J02.9 462 Assessment & Plan 1. Pharyngitis. He reports a sore throat and bad taste in his mouth since this morning. No fever or vomiting was noted. A physical examination was performed, and a clinical diagnosis of pharyngitis was made. A prescription for a 10-day course of oral antibiotics has been sent to [facility] pharmacy. He was advised that the pharmacy might take some time to prepare the medication. SIDDHARTH Jimenez The author of this note, patient (or authorized patient account representative), and all other persons present consent to the audio recording of this visit for charting documentation purposes. This note was automatically generated by a Generative AI technology (Desino), reviewed, edited, and finalized by Marissa Rushing NP. documented in this encounter Plan of Treatment Upcoming Encounters Date Type Department Care Team (Late st Contact Info) Description 11/26/2024 11:40 AM CDT Office Visit [address] [phone] Damon Edmonds MD [address] [address] 02/17/2025 11:00 AM CDT Office Visit [address] [address] Damon Edmonds MD [address] [address] documented as of this encounter Procedures Procedure Name Priority Date/Time Associated Diagnosis Comments POC RAPID STREP A ANTIGEN Routine 09/28/2024 2:00 PM CDT Sore throat documented in this encounter Results * POC RAPID STREP A ANTIGEN (09/28/2024 2:00 PM CDT) RAPID STREP POC Negative Negative, Indeterminate [facility] INTERNAL KIT QC POC [place] [facility] KIT LOT NUMBER POC [id number] [facility] KIT EXP DATE POC 11/06/2025 [facility] READ METHOD POC Visual [facility] Upper Respiratory SPECIMEN FROM THROAT / Unknown 09/28/2024 2:00 PM CDT Marissa Broussardtree SUPERVISOR WHIPPED TOPPING POINT OF CARE TESTING Final Re sult [facility] CLIA# [id number] [address] [facility] [address] [place] [address] documented in this encounter Visit Diagnoses Diagnosis Sore throat- Primary Acute pharyngitis Acute pharyngitis, unspecified etiology documented in this encounter Additional Health Concerns Assessment Noted Time PHQ-9 Depression Total Score: 2 07/19/19 25 1:52 PM AIRPLANE RIGGER documented as of this encounter Care Teams Gin Pole Operator Relationship Specialty Start Date End Date Damon Edmonds MD [address] [place] [address] PCP - General Family Practice 07/26/21 documented as of this encounter
--- OUTSIDE RECORDS SUMMARY | 2024-10-25 18:23 | XMS_ITS | Encounter Summary ---
Author Organization [facility] Address [address] [facility] Attn: [place] [address] Care Team Providers Care Trailer Body Assembler Name Role Phone Damon Edmonds MD Primary Care Provider [phone] [phone] Encounter Details Date Type Department Care Team (Late st Contact Info) Description 09/24/2024 External Device Data Initial Department [address] [place] [address] ATTN: [place] [address] [facility], Social History Tobacco Use Types Packs/Day [...] on file Legal Sex Male 11:15 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 Gender Identity Not on file Sexual Orientation Not on file documented as of this encounter Plan of Treatment Upcoming Encounters Date Type Department Care Team (Late st Contact Info) Description 11/26/2024 11:40 AM CDT Office Visit [facility] [address] [place] [address] Damon Edmonds MD [address] [place] [phone] 02/17/2025 11:00 AM CDT Office Visit [facility] [address] [place] [address] Damon Edmonds MD [address] [place] [address] documented as of this encounter Visit Diagnoses Not on filedocumented in this encounter Additional Health Concerns Assessment Noted Time PHQ-9 Depression Total Score: 2 07/19/19 25 1:52 PM LEGAL COMPLIANCE OFFICER documented as of this encounter Care Teams Trailer Body Assembler Relationship Specialty Start Date End Date Damon Edmonds MD [address] [place] [address] PCP - General Family Practice 07/26/21 documented as of this encounter
--- OUTSIDE RECORDS SUMMARY | 2024-10-25 18:23 | XMS_ITS | Encounter Summary ---
Author Organization [facility] Address [address] [place] [address] Care Team Providers Care General Accounting Manager Name Role Phone Damon Edmonds MD Primary Care Provider [phone] [phone] Encounter Details Date Type Department Care Team (Late st Contact Info) Description 09/30/[address] 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 Gender Identity Not on file Sexual Orientation Not on file documented as of this encounter Plan of Treatment Upcoming Encounters Date Type Department Care Team (Late st Contact Info) Description 11/26/2024 11:40 AM CDT Office Visit [facility] [address] [phone] Damon Edmonds MD [address] [place] [address] 02/17/2025 11:00 AM CDT Office Visit [facility] [address] [place] [phone] Damon Edmonds MD [address] [phone] documented as of this encounter Visit Diagnoses Not on filedocumented in this encounter Additional Health Concerns Assessment Noted Time PHQ-9 Depression Total Score: 2 07/19/19 25 1:52 PM ACCOUNTANT documented as of this encounter Care Teams General Accounting Manager Relationship Specialty Start Date End Date Damon Edmonds MD [address] [place] [phone] PCP - General Family Practice 07/26/21 documented as of this encounter
--- OUTSIDE RECORDS SUMMARY | 2024-10-25 18:23 | XMS_ITS | Encounter Summary ---
Author Organization [employer] [facility] Address [address] [place] [address] Care Team Providers Care Automobile Parts Assembler Name Role Phone Jessica Mccabe MD Primary Care Provider Encounter Details Date Type Department Care Team (Latest Contact Info) Description 06/09/2019 Ancillary Orders [facility] [address] [place] [address] Vane King, MURRAY [address] [place] [address] Postlaminectomy syndrome; Sacroiliitis, not elsewhere classified Social History Tobacco Use Types Packs/Day Years Used Date Smoking Tobacco: Never Smokeless Tobacco: Never Alcohol Use Standard Drinks/Week Comments No 0 (1 standard drink = 0.6 oz pur e alcohol) Sex and Gender Information Value Date Recorded Sex Assigned at Not on file Legal Sex Male 3:05 AM SANITATION TECHNICIAN Gender Identity Not on file Sexual Orientation Not on file Occupation Industry Job Start Date Job End Date Not on file Not on file Not on file Not on file documented as of this encounter Plan of Treatment Not on file documented as of this encounter Results * XR LUMBAR SPINE 4+ VW (06/09/2019 9:20 AM SANITATION TECHNICIAN) Anatomical Region Laterality Modality Spine Computed Radiogr aphy 06/09/2019 9:20 AM SANITATION TECHNICIAN Addenda Addendum by Alex Garner MD on 06/21/2019 9:29 AM SANITATION TECHNICIAN Flexion and extension views show minimal anterior subluxation at L2-3 without change during positioning. Impressions 06/09/2019 9:36 AM SANITATION TECHNICIAN IMPRESSION: Please see below. Exam: XR LUMBAR SPINE 4+ VW Date/Time of Exam: 06/09/2019 9:20 AM Reason For Exam: ??See Diagnosis. Diagnosis: Postlaminectomy syndrome; Sacroiliitis, not elsewhere classified. Findings: Fusion hardware is present at L5-S1 and in the left SI joint. Cemented is seen around the left S1 screw. Partial lumbarization of S1 appears to be present, better seen on the MR of January 24, 2017. No evidence of hardware failure is seen. Disc space narrowing and vacuum phenomena seen at L4-5. Narrative Procedure Note Alex Garner MD - 06/09/2019 IMPRESSION: Please see below. Exam: XR LUMBAR SPINE 4+ VW Date/Time of Exam: 06/09/2019 9:20 AM Reason For Exam: See Diagnosis. Diagnosis: Postlaminectomy syndrome; Sacroiliitis, not elsewhere classified. Findings: Fusion hardware is present at L5-S1 and in the left SI joint. Cemented is seen around the left S1 screw. Partial lumbarization of S1 appears to be present, better seen on the MR of January 24, 2017. No evidence of hardware failure is seen. Disc space narrowing and vacuum phenomena seen at L4-5. Vane King DRAFTING INSTRUCTOR DIAGNOSTIC IMAGING ORDERABLES Ed ited Result - Final documented in this encounter Visit Diagnoses Diagnosis Postlaminectomy syndrome Postlaminectomy syndrome, unspecified region Sacroiliitis, not elsewhere classified Postlaminectomy syndrome Postlaminectomy syndrome, unspecified region Sacroiliitis, not elsewhere classified documented in this encounter Care Teams Automobile Parts Assembler Relationship Specialty Start Date End Date Jessica Mccabe MD [address] [facility] [address] [place] [phone] PCP - General Family Practice 05/07/18 documented as of this encounter
--- OUTSIDE RECORDS SUMMARY | 2024-10-25 18:23 | XMS_ITS | Encounter Summary ---
Author Organization [facility] Address [address] [place] [address] Care Team Providers Care Cinder Man Name Role Phone Jessica Mccabe MD Primary Care Provider Encounter Details Date Type Department Care Team (Latest Contact Info) Description 06/09/2019 Ancillary Orders [facility] [address] [place] [address] Vane King, SHIP KEEPER [address] [place] [address] Postlaminectomy syndrome; Sacroiliitis, not elsewhere classified Social History Tobacco Use Types Packs/Day Years Used Date Smoking Tobacco: Never Smokeless Tobacco: Never Alcohol Use Standard Drinks/Week Comments No 0 (1 standard drink = 0.6 oz pur e alcohol) Sex and Gender Information Value Date Recorded Sex Assigned at Not on file Legal Sex Male 3:05 AM PRESS TENDER SHORT GOODS Gender Identity Not on file Sexual Orientation Not on file Occupation Industry Job Start Date Job End Date Not on file Not on file Not on file Not on file documented as of this encounter Plan of Treatment Not on file documented as of this encounter Visit Diagnoses Diagnosis Postlaminectomy syndrome Postlaminectomy syndrome, unspecified region Sacroiliitis, not elsewhere classified documented in this encounter Care Teams Cinder Man Relationship Specialty Start Date End Date Jessica Mccabe MD [address] [phone] PCP - General Family Practice 05/07/18 documented as of this encounter
--- OUTSIDE RECORDS SUMMARY | 2024-10-25 18:23 | XMS_ITS | Encounter Summary ---
Author Organization [facility] Address [address] [facility] Attn: [place] [address] Care Team Providers Care Legal Billing Coordinator Name Role Phone Damon Edmonds MD Primary Care Provider [phone] Encounter Details Date Type Department Care Team (Late st Contact Info) Description 10/01/2024 External Device Data Initial Department [address] [place] [address] ATTN: [place] [address] [facility], Social History Tobacco Use Types Packs/Day [...] on file Legal Sex Male 11:15 AM TECHNOLOGIST DEVELOPMENT Gender Identity Not on file Sexual Orientation Not on file documented as of this encounter Plan of Treatment Upcoming Encounters Date Type Department Care Team (Late st Contact Info) Description 11/26/2024 11:40 AM CDT Office Visit [facility] [address] [place] [address] Damon Edmonds MD [address] [place] [phone] 02/17/2025 11:00 AM CDT Office Visit [facility] [address] [place] [address] Damon Edmonds MD [address] [place] [address] documented as of this encounter Visit Diagnoses Not on filedocumented in this encounter Additional Health Concerns Assessment Noted Time PHQ-9 Depression Total Score: 2 07/19/19 25 1:52 PM TECHNOLOGIST DEVELOPMENT documented as of this encounter Care Teams Legal Billing Coordinator Relationship Specialty Start Date End Date Damon Edmonds MD [address] [place] [phone] PCP - General Family Practice 07/26/21 documented as of this encounter
--- OUTSIDE RECORDS SUMMARY | 2024-10-25 18:23 | XMS_ITS | Encounter Summary ---
Author Organization [facility] Address [address] [place] [address] Care Team Providers Care Emergency Medical Services Coordinator Name Role Phone Damon Edmonds MD Primary Care Provider [phone] Reason for Visit * Reason Comments Follow Up Results Cardiac testing [facility] Encounter Details Date Type Department Care Team (Latest Contact Info) Description 10/07/2024 1:20 PM CDT Office Visit [address] [address] Damon Edmonds MD [address] [address] Degeneration of intervertebral disc of lumbar region with discogenic back pain and lower extremity pain (Primary Dx); SK (seborrheic keratosis); History of lumbar spinal fusion; Retained orthopedic hardware; Paroxysmal atrial fibrillation (CMS/HCC); Chronic heart failure with preserved ejection fraction (CMS/HCC); Moderate aortic stenosis Social History Tobacco Use Types Packs/Day Years [...] on file 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 Gender Identity Not on file Sexual Orientation Not on file documented as of this encounter Last Filed Vital Signs Vital Sign Reading Time Taken Comments Blood Pressure 134/72 10/07/2024 1:21 PM CDT Pulse 74 10/07/2024 1:21 PM CDT Temperature 36 ??C (96.8 ??F) 10/07/2024 1:21 PM CDT Respiratory Rate 22 10/07/2024 1:21 PM CDT Oxygen Saturation 97% 10/07/2024 1:21 PM CDT Inhaled Oxygen Concentration - - Weight 128.8 kg (284 lb) 10/07/2024 1:21 PM CDT Height 177.8 cm (5' 10 ) 10/07/2024 1:21 PM CDT Body Mass Index 40.75 10/07/2024 1:21 PM CDT documented in this encounter Progress Notes * Damon Edmonds MD - 10/08/2024 11:30 AM CDT [facility] 10/07/2024 Subjective: Brandon Tuttle is a 83 y.o. male who comes today for evaluation of Follow Up and Results (Cardiac testing [facility]) . History of Present Illness The patient is an 83-year-old male who presents for evaluation of chest pain, aortic valve stenosis, and skin lesions. He reports experiencing intermittent episodes of severe chest pain, described as ninfa to being shotwith a shotgun. These episodes are sudden in onset, last approximately 5 to 10 minutes, and resolvespontaneously. The pain is localized to the chest, does not radiate to the arms or jaw, and is characterized as a deep, achy sensation. He also experiences mild shortness of breath during these episodes but does not report any associated nausea or dizziness. He retains his gallbladder. He has a scheduled appointment with his surgeon, Dr. Orona, in 10/2024 for a planned back surgery. He expresses anxiety about the upcoming procedure and is seeking reassurance regarding his cardiac health. He has been informed of a valve issue and is curious about potential interventions. He is currently pain- free but notes that exertion can trigger chest pain. He has been waiting for a year for this surgery and anticipates a similar recovery period postoperatively. He experiences constant soreness, which significantly impairs his mobility. He occasionally perceives a metallic sensation in his back, likened to a knife, at the site of a previous metal implant. He has undergone spinal fusion surgery and is hopeful that the upcoming procedure will alleviate his symptoms by at least 80 percent. He expresses a desire to return to work but is currently unable to stand for prolonged periods due to pain. He finds that staying busy helps distract him from the loss of his , which he finds particularly challenging to cope with at night. He has identified several spots on his shoulder blade, initially thought to be pimples, but his granddaughter has expressed concern about their appearance. He has a history of two cysts on his back. Supplemental Information He recently recovered from influenza, treated with antibiotics. Review of Systems Constitutional: Negative for fever. Respiratory: Negative for shortness of breath. Cardiovascular: Positive for chest pain. Gastrointestinal: Negative for abdominal pain. Musculoskeletal: Positive for back pain. Skin: Negative for rash. Neurological: Negative for weakness. Objective: Vitals: 10/07/24 1321 Temp: 96.8 ??F (36 ??C) Pulse: 74 BP: 134/72 Resp: 22 SpO2: 97% Physical Exam Vitals and nursing note reviewed. Constitutional: General: He is not in acute distress. Appearance: Normal appearance. He is not ill-appearing. HENT: Head: Normocephalic and atraumatic. Eyes: Conjunctiva/sclera: Conjunctivae normal. Cardiovascular: Rate and Rhythm: Normal rate and regular rhythm. Heart sounds: Normal heart sounds. Pulmonary: Effort: Pulmonary effort is normal. Breath sounds: Normal breath sounds. Abdominal: Palpations: Abdomen is soft. Musculoskeletal: Cervical back: Neck supple. Skin: Findings: Lesion (Multiple seborrheic keratoses across the back) present. No rash. Neurological: Mental Status: He is alert and oriented to person, place, and time. Mental status is at baseline. Psychiatric: Mood and Affect: Mood normal. Behavior: Behavior normal. Past medical history, surgical history and social history reviewed. Past Medical History: Diagnosis Date A-fib ([facility]) Actinic keratosis Arthropathy, unspecified, site unspecified Congestive heart failure ([facility]) Headache(784.0) History of degenerative disc disease Unspecified essential hypertension Procedures Assessment/Plan: ICD-10-CM ICD-9-CM 1. Degeneration of intervertebral disc of lumbar region with discogenic back pain and lower extremity pain M51.362 722.52 2. SK (seborrheic keratosis) L82.1 702.19 3. History of lumbar spinal fusion Z98.1 V45.4 4. Retained orthopedic hardware Z96.9 V45.89 5. Paroxysmal atrial fibrillation ([facility]) I48.0 427.31 6. Chronic heart failure with preserved ejection fraction ([facility]) I50.32 428.9 7. Moderate aortic stenosis I35.0 424.1 Assessment & Plan 1. Chest pain. The patient reports experiencing sudden, deep, achy chest pain lasting about 5- 10 minutes, sometimes accompanied by shortness of breath but not associated with nausea or dizziness. The pain does not radiate to the arms or jaw. Differential diagnoses include gastrointestinal, pulmonary, or musculoskeletal causes. The absence of a blockage was confirmed through a stress test. The patient was reassured that the pain is unlikely cardiac-related and could be due to other causes such as the stomach, lungs, or rib cage. 2. Aortic valve stenosis. An ultrasound revealed a narrowed aortic valve. The patient was informed that while the condition can cause symptoms like shortness of breath, dizziness, weakness, and fatigue, it is not causing his chest pain. The patient was educated about the potential need for valve replacement if the conditionworsens significantly, which can be done via catheterization without open-heart surgery. A repeat ultrasound will be scheduled in 6 months to monitor the progression of the condition. 3. Skin lesions. The patient presented with dark spots on the shoulder blade, which were examined and determined to be age spots, not indicative of skin cancer. No further action is required at this time. 4. Back surgery. The patient is scheduled for back surgery with Dr. Orona in October. A letter will be sent to Dr. Orona confirming that the patient is cleared for surgery. The patient was advised to hold his blood thinner 3 days before the surgery and resume it the day after. Continue current management of the above stable chronic health problems including follow-up with cardiology and spine surgery. Damon Edmonds MD The author of this note, patient (or authorized field support representative), and all other persons present consent to the audio recording of this visit for charting documentation purposes. This note was automatically generated by a [employer] technology ([employer]), reviewed, edited, and finalized by Damon Edmonds MD. documented in this encounter Plan of Treatment Upcoming Encounters Date Type Department Care Team (Late st Contact Info) Description 11/26/2024 11:40 AM CDT Office Visit [address] [phone] Damon Edmonds MD [address] [phone] 02/17/2025 11:00 AM CDT Office Visit [address] [phone] Damon Edmonds MD [address] [phone] documented as of this encounter Visit Diagnoses Diagnosis Degeneration of intervertebral disc of lumbar region with discogenic back pain and lower extremity pain- Primary SK (seborrheic keratosis) Other seborrheic keratosis History of lumbar spinal fusion Retained orthopedic hardware Reserved for inherently not codable concepts WITHOUT codable children Paroxysmal atrial fibrillation (CMS/HCC) Atrial fibrillation Chronic heart failure with preserved ejection fraction (CMS/HCC) Moderate aortic stenosis Aortic valve disorders documented in this encounter Additional Health Concerns Assessment Noted Time PHQ-9 Depression Total Score: 2 07/19/19 25 1:52 PM BUSINESS 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
--- OUTSIDE RECORDS SUMMARY | 2024-10-25 18:23 | XMS_ITS | Encounter Summary ---
Author Organization [facility] Address 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 * Telephone Encounter - Je Velez - 09/29/2024 9:36 AM CDT Copied from [facility] #[id number]. Topic: [id number] Call >> Sep 29, 2024 9:34 AM Je Torres wrote: Caller is requesting to speak with Clinical Care Team. Caller Name: Elba dinesh/ [facility] Callback Number: [phone] Clinician Type: Other healthcare professional not listed above Call Notes: Elba states that Bell called and needed a stress test for the patient. Elba wanted to let Bell know that the stress test hadn't been signed off on yet, and Bell would need to check back later. Is this addressing an immediate patient care need? No documented in this encounter Plan of Treatment Upcoming Encounters Date Type Department Care Team (Late st Contact Info) Description 11/26/2024 11:40 AM CDT Office Visit [facility] [address] [phone] Damon Edmonds MD [address] [address] 02/17/2025 11:00 AM CDT Office Visit [facility] [address] [place] [phone] Damon Edmonds MD [address] [place] [phone] documented as of this encounter Visit Diagnoses Not on filedocumented in this encounter Additional Health Concerns Assessment Noted Time PHQ-9 Depression Total Score: 2 07/19/19 25 1:52 PM HEAD OF HOUSEKEEPING documented as of this encounter Care Teams Benefits Advisor Relationship Specialty Start Date End Date Damon Edmonds MD [address] [place] [phone] PCP - General Family Practice 07/26/21 documented as of this encounter
--- OUTSIDE RECORDS SUMMARY | 2024-10-25 18:23 | XMS_ITS | Encounter Summary ---
Author Organization [facility] Address [address] [facility] Attn: [place] [address] Care Team Providers Care Business Analyst Project Manager Name Role Phone Damon Edmonds MD Primary Care Provider [phone] Encounter Details Date Type Department Care Team (Late st Contact Info) Description 09/28/2024 External Device Data Initial Department [address] [place] [address] ATTN: [place] [address] [facility], Social History Tobacco Use Types Packs/Day [...] on file 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 Male 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 Gender Identity Not on file Sexual Orientation Not on file documented as of this encounter Plan of Treatment Upcoming Encounters Date Type Department Care Team (Late st Contact Info) Description 11/26/2024 11:40 AM CDT Office Visit [facility] [address] [place] [phone] Damon Edmonds MD [address] [place] [phone] 02/17/2025 11:00 AM CDT Office Visit [facility] [address] [place] [address] Damon Edmonds MD [address] [place] [address] documented as of this encounter Visit Diagnoses Not on filedocumented in this encounter Additional Health Concerns Assessment Noted Time PHQ-9 Depression Total Score: 2 07/19/19 25 1:52 PM RESP THERAPIST documented as of this encounter Care Teams Business Analyst Project Manager Relationship Specialty Start Date End Date Damon Edmonds MD [address] [place] [phone] PCP - General Family Practice 07/26/21 documented as of this encounter
--- OUTSIDE RECORDS SUMMARY | 2024-10-25 18:23 | XMS_ITS | Encounter Summary ---
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 Gender Identity Not on file Sexual Orientation Not on file documented as of this encounter Plan of Treatment Upcoming Encounters Date Type Department Care Team (Late st Contact Info) Description 11/26/2024 11:40 AM CDT Office Visit [facility] [address] [place] [address] Damon Edmonds MD [address] [place] [phone] 02/17/2025 11:00 AM CDT Office Visit [facility] [address] [place] [phone] Damon Edmonds MD [address] [place] [address] documented as of this encounter Visit Diagnoses Not on filedocumented in this encounter Additional Health Concerns Assessment Noted Time PHQ-9 Depression Total Score: 2 07/19/19 25 1:52 PM GRAND JURY DEPUTY SHERIFF documented as of this encounter Care Teams Dining Chair Seat Cushion Trimmer Relationship Specialty Start Date End Date Damon Edmonds MD [address] [place] [phone] PCP - General Family Practice 07/26/21 documented as of this encounter
--- OUTSIDE RECORDS SUMMARY | 2024-10-25 18:24 | XMS_ITS | Encounter Summary ---
Author Organization [facility] Address [address] [place] [address] Care Team Providers Care Flight Attendant/Inflight Manager Name Role Phone Jessica Mccabe MD Primary Care Provider Encounter Details Date Type Department Care Team (Late st Contact Info) Description 10/22/2006 Outpatient Historical 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
--- OUTSIDE RECORDS SUMMARY | 2024-10-25 18:24 | XMS_ITS | Encounter Summary ---
Author Organization [facility] Address [address] [place] [address] Care Team Providers Care Wooling Machine Operator Name Role Phone Jessica Mccabe MD Primary Care Provider Encounter Details Date Type Department Care Team (Latest Contact Info) Description 11/21/2006 Outpatient Historical 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
--- OUTSIDE RECORDS SUMMARY | 2024-10-25 18:24 | XMS_ITS | Encounter Summary ---
Author Organization [facility] Address [address] [place] [address] Care Team Providers Care Finance Specialist Name Role Phone Jessica Mccabe MD Primary Care Provider [phone] Encounter Details Date Type Department Care Team (Latest Contact Info) Description 05/27/2007 Outpatient Historical [facility] Rheumatology- [facility] [place] [address] [place] [phone] Charlie Franco MD NO ADDRESS ON FILE Polymyalgia Rheumatica (Primary Dx) Social History Tobacco Use Types Packs/Day Years Used Date Smoking Tobacco: Never Assessed Sex and Gender Information Value Date Recorded Sex Assigned at Not on file 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
--- OUTSIDE RECORDS SUMMARY | 2024-10-25 18:24 | XMS_ITS | Encounter Summary ---
Author Organization [facility] Address [address] [place] [address] Care Team Providers Care Shoe Stock Associate Name Role Phone Jessica Mccabe MD Primary Care Provider Encounter Details Date Type Department Care Team (Latest Contact Info) Description 07/03/2006 Outpatient Historical [facility] [address] 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
--- OUTSIDE RECORDS SUMMARY | 2024-10-25 18:24 | XMS_ITS | Encounter Summary ---
Author Organization [facility] Address [address] [place] [address] Care Team Providers Care Solar Pool Heating Installer Name Role Phone Jessica Mccabe MD Primary Care Provider Encounter Details Date Type Department Care Team (Late st Contact Info) Description 07/08/2007 Outpatient Historical [facility] General Surgery [address] [address] [address] [place] [address] Royer Johnson DO NO ADDRESS ON FILE Social History Tobacco Use Types Packs/Day Years Used Date Smoking Tobacco: Never Assessed Sex and Gender Information Value Date Recorded Sex Assigned at Not on file 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
--- OUTSIDE RECORDS SUMMARY | 2024-10-25 18:24 | XMS_ITS | Encounter Summary ---
Author Organization [facility] Address [address] [place] [address] Care Team Providers Care Supervisor Cell Efficiency Name Role Phone Jessica Mccabe MD Primary Care Provider Encounter Details Date Type Department Care Team (Latest Contact Info) Description 02/13/2005 Outpatient Historical [facility] Medicine- [address] [phone] Dexter Colin MD [address] [phone] CHRONIC SINUSITIS NOS (Primary Dx); ACUTE BRONCHITIS Social History Tobacco Use Types Packs/Day Years Used Date Smoking Tobacco: Never Assessed Sex and Gender Information Value Date Recorded Sex Assigned at Not on file 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
--- OUTSIDE RECORDS SUMMARY | 2024-10-25 18:24 | XMS_ITS | Encounter Summary ---
Author Organization [facility] Address [address] [place] [address] Care Team Providers Care Field Service Poultry Technician Name Role Phone Jessica Mccabe MD Primary Care Provider Encounter Details Date Type Department Care Team (Latest Contact Info) Description 07/03/2006 Outpatient Historical [facility] Pain Management Procedures [address] [place] [address] Gasper Nick Enthesopathy of Hip Region (Primary Dx) Social History Tobacco Use Types Packs/Day Years Used Date Smoking Tobacco: Never Assessed Sex and Gender Information Value Date Recorded Sex Assigned at Not on file Legal Sex Male 3:05 AM REGISTERED DIETICIAN Gender Identity Not on file Sexual Orientation Not on file documented as of this encounter Plan of Treatment Not on file documented as of this encounter Procedures Procedure Name Priority Date/Time Associated Diagnosis Comments HLA B27 Routine 07/03/2006 2:30 PM REGISTERED DIETICIAN CBC WITH DIFFERENTIAL Routine 07/03/2006 2:30 PM REGISTERED DIETICIAN SEDIMENTATION RATE Routine 07/03/2006 2: 30 PM REGISTERED DIETICIAN RHEUMATOID FACTOR Routine 07/03/2006 2:3 0 PM REGISTERED DIETICIAN C-REACTIVE PROTEIN Routine 07/03/2006 2: 30 PM REGISTERED DIETICIAN BAKARI SCREEN W/REFLEX Routine 07/03/2006 2 :30 PM REGISTERED DIETICIAN documented in this encounter Results * HLA B27 (07/03/2006 2:30 PM REGISTERED DIETICIAN) HLA B27 See Sep Report INTERFACE SYSTEM 07/03/2006 2:30 PM REGISTERED DIETICIAN StyleTread CHEMISTRY ORDERABLES Final Resul t Performing Organization Address [facility] Phone Number INTERFACE SYSTEM Refer to clinic/hospital department * RHEUMATOID FACTOR (07/03/2006 2:30 PM REGISTERED DIETICIAN) RHEUMATOID FACTOR <20.0 0.0 - 20.0 IU/mL INTERFACE SYSTEM Comment: RF Ranges: ?<20.0 ?Negative for Rheumatoid Factor 20.0-35.0 ?Borderline Serological Activities ? Suggest Repeat in 4-6 Weeks. ?>35.0 ?Indicates Presences of Rheumatoid Factor 07/03/2006 2:30 PM REGISTERED DIETICIAN [employer]Tread CHEMISTRY ORDERABLES Final Resul t Performing Organization Address [facility] Number INTERFACE SYSTEM Refer to clinic/hospital department * BAKARI (07/03/2006 2:30 PM REGISTERED DIETICIAN) BAKARI Negative Negative INTERFACE SYSTEM 07/03/2006 2:30 PM REGISTERED DIETICIAN [employer]Tread CHEMISTRY ORDERABLES Final Resul t Performing Organization Address [facility] Phone Number INTERFACE SYSTEM Refer to clinic/hospital department * (ABNORMAL) C-REACTIVE PROTEIN (07/03/2006 2:30 PM REGISTERED DIETICIAN) CRP 1.92(H) 0.00 - 1.00 mg/dL INTERFACE SYSTEM 07/03/2006 2:30 PM REGISTERED DIETICIAN Gasper Jo Ann Sandoval CHEMISTRY ORDERABLES Final Resul t INTERFACE SYSTEM Refer to clinic/hospital department * (ABNORMAL) SEDIMENTATION RATE (07/03/2006 2:30 PM REGISTERED DIETICIAN) ESR (SEDIMENTATION RATE) 30(H) 0 - 20 mm/hr INTERFACE SYSTEM 07/03/2006 2:30 PM REGISTERED DIETICIAN Gasper Nick HEMATOLOGY ORDERABLES Final Resu lt Performing Organization Address [facility] Phone Number INTERFACE SYSTEM Refer to clinic/hospital department * (ABNORMAL) CBC WITH DIFFERENTIAL (07/03/2006 2:30 PM REGISTERED DIETICIAN) WBC 4.7(L) 4.8 - 10.8 K/ul INTERFACE SYSTEM RBC 4.48(L) 4.60 - 6.20 Mil/ul INTERFACE SYSTEM HEMOGLOBIN 13.1(L) 14.0 - 18.0 g/dL INTERFACE SYSTEM HEMATOCRIT 39.4(L) 41.0 - 53.0 % INTERFACE SYSTEM MCV 87.9 84.0 - 103.0 Fl INTERFACE SYSTEM MCH 29.2 27.0 - 34.0 pg INTERFACE SYSTEM MCHC 33.2 30.0 - 35.0 g/dL INTERFACE SYSTEM RDW 13.2 11.0 - 14.5 % INTERFACE SYSTEM PLATELETS 201 140 - 440 K/ul INTERFACE SYSTEM MPV 9.3 8.9 - 12.8 Fl INTERFACE SYSTEM NEUTROPHILS 49.3 42.2 - 75.2 % INTERFACE SYSTEM LYMPHOCYTES 37.2 24.0 - 44.0 % INTERFACE SYSTEM MONOCYTES 11.2(H) 2.0 - 10.0 % INTERFACE SYSTEM EOSINOPHILS 1.9 0.0 - 7.0 % INTERFACE SYSTEM BASOPHILS 0.4 0.0 - 1.0 % INTERFACE SYSTEM NEUTROPHIL ABSOLUTE 2.3 2.0 - 8.0 K/uL INTERFACE SYSTEM LYMPHOCYTE ABSOLUTE 1.8 1.2 - 4.0 K/ul INTERFACE SYSTEM MONOCYTE ABSOLUTE 0.5 0.1 - 0.6 K/ul INTERFACE SYSTEM EOSINOPHIL ABSOLUTE 0.1 0.0 - 0.7 K/ul INTERFACE SYSTEM BASOPHILS ABSOLUTE 0.0 0.0 - 0.2 K/ul INTERFACE SYSTEM 07/03/2006 2:30 PM REGISTERED DIETICIAN us Gasper Nick HEMATOLOGY ORDERABLES Final Resu lt INTERFACE SYSTEM Refer to clinic/hospital department documented in this encounter Visit Diagnoses Diagnosis Enthesopathy of hip region- Primary documented in this encounter Care Teams Field Service Poultry Technician Relationship Specialty Start Date End Date Jessica Mccabe MD [address] [facility] [address] [place] [phone] PCP - General Family Practice 05/07/18 documented as of this encounter
--- OUTSIDE RECORDS SUMMARY | 2024-10-25 18:24 | XMS_ITS | Encounter Summary ---
Author Organization [facility] Address [address] [place] [address] Care Team Providers Care Plastic Technician Name Role Phone Jessica Mccabe MD Primary Care Provider Encounter Details Date Type Department Care Team (Latest Contact Info) Description 01/12/2004 Outpatient [facility] Medicine [address] [address] Dexter Colin MD [address] [facility] [address] [place] [address] JOINT PAIN-SHLDER (Primary Dx) Social History Tobacco Use Types Packs/Day Years Used Date Smoking Tobacco: Never Assessed Sex and Gender Information Value Date Recorded Sex Assigned at Not on file Legal Sex Male 3: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
--- OUTSIDE RECORDS SUMMARY | 2024-10-25 18:24 | XMS_ITS | Patient Health Record ---
Author Organization [facility] Address [address] [place], [place] [address] Care Team Providers Care Environmental Health Physician Name Role Phone Eliot YORK, Jessica Primary Care Provider Yazan Mcdonough MD, Kenney Unavailable [phone] Ambrocio YORK, Neel Johnson Unavailable Unavail able Allergies No Known Allergies Reason For Referral No Information Medications Medication SIG (Take, Route, Fr equency, Duration) Notes Start Date End Date Status warfarin 5 mg orally as directed Active lisinopril 20 mg 1 tab orally once a day Active Tylenol 325 mg 2 tabs po orally QID prn pain Active Social History Tobacco Use: Social History Observation Description Date Details (start date - stop date) Never Smoker NA - NA alcohol Question Answer Notes Did you have a drink containing alcohol in the p ast year? No Points 0 Interpretation Negative Tobacco use: Question Answer Notes : nonsmoker Problems Problem Type SNOMED Code ICD Code Onset Dates Problem Status W/U Status Risk Notes Problem Solitary sacroiliitis (265166651) Sacroiliitis, not elsewhere classified (M46.1) Active confirmed Problem Low back pain (634946523) Low back pain (M54.5) Active confirmed Problem Lumbosacral spondylosis without myelopathy (27173088) Spondylosis without myelopathy or radiculopathy, lumbar region (M47.816) Active confirmed Problem Anxiety disorder (200168754) Other specified anxiety disorders (F41.8) Active confirmed Problem Acquired spondylolisthesis (071118569) Spondylolisthesis , lumbar region (M43.16) Active confirmed Problem Radiculopathy due to lumbar intervertebral disc disorder (981157140508771) Intervertebral disc disorders with radiculopathy, lumbar region (M51.16) Active confirmed Problem Post-laminectomy syndrome (70145964) Postlaminectomy syndrome, not elsewhere classified (M96.1) Active confirmed Problem Long-term current use of drug therapy (489587331) Other mcc (current) drug therapy (Z79.899) Active confirmed Problem Muscle pain (70763673) Myalgia, other site (M79.18) Active confirmed Problem Pain in lumbar spine (316780784) Vertebrogenic low back pain (M54.51) Active confirmed Plan Of Treatment No Information Insurance Providers Payer Name Payer Address Payer Phone Subscriber Number Group Number Insured Name Patient Relationship to Insured Coverage Start Date Coverage End Date [facility] Medicare Part B Claims Department [address] [address] [place] [address] [id number] Parag Brandon Self - patient is the insured [employer] [place] [address] [address] [place] [address] [id number] Parag Brandon Self - patient is the insured Medical (General) History Medical History History ICD Code Facet arthritis of lumbosacral region Low back pain Sacroiliitis spondylosis, lumbar without myelopathy Degenerative disc disease, lumbar Hypertension Benign prostatic hyperplasia Heel spur Abnormal EKG Hematuria Bladder outlet obstruction L4-5 anterolisthesis L3-4 anterolisthesis and mild levoscolio sis Irregular heart beats Surgical History Surgery Date(Month/Year) L4-5, L5-S1 PLIF with methyl methacrylate pedicle screw augmentation, Dr. Albrecht, 12/02/14 Stereotactic guided left sac roiliac joint arthrodesis with instrumentation, Dr. Albrecht, 12/2018 DCS system (with IPG) placem ent, performed at [facility] by Dr. Kylie Ramires, 2019 IPG explatation, performed at the [facility] b y Dr. Butts, 05/03/21
--- OUTSIDE RECORDS SUMMARY | 2024-10-25 18:24 | XMS_ITS | Encounter Summary ---
Author Organization [facility] Address [address] [place] [address] Care Team Providers Care Event Av Operator Name Role Phone Jessica Mccabe MD Primary Care Provider [phone] Encounter Details Date Type Department Care Team (Latest Contact Info) Description 09/15/2002 Outpatient Historical [facility] Family Medicine- [address] [place] [address] Efren Trevino, DO NO ADDRESS ON FILE NONINFEC GASTROENTERIT NEC (Primary Dx); ADJ REACT-ANXIOUS MOOD Social History Tobacco Use Types Packs/Day Years Used Date Smoking Tobacco: Never Assessed Sex and Gender Information Value Date Recorded Sex Assigned at Not on file Legal Sex Male 3:05 AM 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 PATCHER Gender Identity Not on file Sexual Orientation Not on file documented as of this encounter Plan of Treatment Not on file documented as of this encounter Visit Diagnoses Diagnosis Other and unspecified noninfectious gastroenteritis and colitis(558.9)- Primary Other and unspecified noninfectious gastroenteritis and colitis Adjustment disorder with anxiety documented in this encounter Care Teams Event Av Operator Relationship Specialty Start Date End Date Jessica Mccabe MD [address] [facility] [address] [place] [phone] PCP - General Family Practice 05/07/18 documented as of this encounter
--- OUTSIDE RECORDS SUMMARY | 2024-10-25 18:24 | XMS_ITS | Encounter Summary ---
Author Organization [facility] Address [address] [place] [address] Care Team Providers Care Glaze Wiper Name Role Phone Jessica Mccabe MD Primary Care Provider [phone] Encounter Details Date Type Department Care Team (Latest Contact Info) Description 07/10/2006 Outpatient Historical [facility] [address] 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
--- OUTSIDE RECORDS SUMMARY | 2024-10-25 18:24 | XMS_ITS | Encounter Summary ---
Author Organization 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
--- OUTSIDE RECORDS SUMMARY | 2024-10-25 18:24 | XMS_ITS | Encounter Summary ---
Author Organization [facility] Address [address] [place] [address] Care Team Providers Care Visual Specialist Name Role Phone Jessica Mccabe MD Primary Care Provider Encounter Details Date Type Department Care Team (Latest Contact Info) Description 07/10/2006 Outpatient Historical [facility] Pain Management Procedures [address] [place] [address] Gasper Nick Enthesopathy of Hip Region (Primary Dx) Social History Tobacco Use Types Packs/Day Years Used Date Smoking Tobacco: Never Assessed Sex and Gender Information Value Date Recorded Sex Assigned at Not on file Legal Sex Male 3:05 AM CSO Gender Identity Not on file Sexual Orientation Not on file documented as of this encounter Plan of Treatment Not on file documented as of this encounter Visit Diagnoses Diagnosis Enthesopathy of hip region- Primary documented in this encounter Care Teams Visual Specialist Relationship Specialty Start Date End Date Jessica Mccabe MD [address] [phone] PCP - General Family Practice 05/07/18 documented as of this encounter
--- OUTSIDE RECORDS SUMMARY | 2024-10-25 18:24 | XMS_ITS | Encounter Summary ---
Author Organization [facility] Address [address] [place] [address] Care Team Providers Care Nut Former Name Role Phone Jessica Mccabe MD Primary Care Provider Encounter Details Date Type Department Care Team (Latest Contact Info) Description 05/22/2005 Outpatient Historical [facility] Medicine- [address] [phone] Dexter Colin MD [address] [phone] HYPERTENSION NOS (Primary Dx); CHRONIC SINUSITIS NOS Social History Tobacco Use Types Packs/Day Years Used Date Smoking Tobacco: Never Assessed Sex and Gender Information Value Date Recorded Sex Assigned at Not on file 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
--- OUTSIDE RECORDS SUMMARY | 2024-10-25 18:24 | XMS_ITS | Encounter Summary ---
Author Organization [facility] Address [address] [place] [address] Care Team Providers Care Correction Worker Name Role Phone Jessica Mccabe MD Primary Care Provider Encounter Details Date Type Department Care Team (Latest Contact Info) Description 06/23/2006 Outpatient Historical [facility] Imaging Services [address] [place] [address] Aretha Rose MD NO ADDRESS ON FILE Thoracic Spondylosis without Myelopathy (Primary Dx) Social History Tobacco Use Types Packs/Day Years Used Date Smoking Tobacco: Never Assessed Sex and Gender Information Value Date Recorded Sex Assigned at Not on file Legal Sex Male 3:05 AM INTERMEDIATE TEACHER Gender Identity Not on file Sexual Orientation Not on file documented as of this encounter Plan of Treatment Not on file documented as of this encounter Procedures Procedure Name Priority Date/Time Associated Diagnosis Comments MRI LUMBAR WO CONTRAST Routine 06/23/2006 12:01 AM INTERMEDIATE TEACHER documented in this encounter Results * MRI LUMBAR WO CONTRAST (06/23/2006 12:01 AM INTERMEDIATE TEACHER) Anatomical Region Laterality Modality Spine Other 06/23/2006 12:0 1 AM INTERMEDIATE TEACHER Narrative 06/23/2006 12:01 AM INTERMEDIATE TEACHER MRI THORACIC SPINE WITHOUT CONTRAST. MRI LUMBAR SPINE WITHOUT CONTRAST. DATE: 06/23/2006. HISTORY: 65-year-old male - back pain. TECHNIQUE: Multiplanar multisequence MR images were obtained through the thoracolumbar spine withoutcontrast. FINDINGS: Thoracic alignment is grossly normal. Moderate diffuse thoracic disc degeneration andspondylosis are present. Findings manifest as disc desiccation with loss of disc spaceheight/endplate irregularity and spondylotic disc bulging over essentially all levels. Relativeventral wedging over the midthoracic segments is of discogenic nature. There are mild scatteredinflammatory type discogenic marrow endplate changes which may be pain generating. No evidence ofcompression fracture. Small disc protrusions are present over several levels with ventral cordremodeling but no impingement or signal alteration detected. There is ample CSF space dorsal to thecord over these levels. Thoracic cord signal appears normal. No evidence of marrow infiltrativeprocess. Images of the lumbar spine show grossly normal alignment. Moderate diffuse lumbar discogenicdegeneration is present, not unexpected for age and most pronounced over the distal levels. Mildedema type discogenic marrow endplate changes over L5-S1. No evidence of compression fracture. Axial images show a right lateral/foraminal disc protrusion at L3-L4 which narrows the right neuralforamen. At L4-L5, focal right paracentral disc protrusion is present which distorts the right paramedianthecal sac and may have displacing and/or compressive effect on the descending right L5 nerve rootat the subarticular level. Moderate bilateral neural foraminal narrowing present at this level. At L5-S1, moderate spondylotic disc bulging flattens the ventral thecal sac with mild bilateralsubarticular narrowing. There is relatively high-grade bilateral neural foraminal narrowing at thislevel. IMPRESSION: Diffuse thoracic and lumbar discogenic degeneration as outlined in detail above. Scatterededema type discogenic marrow endplate changes over the mid-distal thoracic levels may be paingenerating. No evidence of compression fracture. Several small thoracic disc herniations are notedwith cord remodeling but no impingement or signal alteration. Lumbar spine shows discogenicdegeneration which is most pronounced distally with focal right paracentral disc protrusion atL4-L5 possibly neurocompressive and with relatively high-grade bilateral neural foraminal narrowingat L5-S1. No evidence of acute compression fracture. - Dictated By: ??Ugo LopezO. Electronically Signed By: ??Tucker Santillan D.O. Date Signed: 06/24/06 AMA Procedure Note Provider, Historical - 06/01/2009 MRI THORACIC SPINE WITHOUT CONTRAST. MRI LUMBAR SPINE WITHOUT CONTRAST. DATE: 06/23/2006. HISTORY: 65-year-old male - back pain. TECHNIQUE: Multiplanar multisequence MR images were obtained through thethoracolumbar spine withoutcontrast. FINDINGS: Thoracic alignment is grossly normal. Moderate diffuse thoracic discdegeneration andspondylosis are present. Findings manifest as disc desiccation with loss of discspaceheight/endplate irregularity and spondylotic disc bulging over essentially all levels. Relativeventralwedging over the midthoracic segments is of discogenic nature. There are mild scatteredinflammatorytype discogenic marrow endplate changes which may be pain generating. No evidence ofcompression fracture.Small disc protrusions are present over several levels with ventral cordremodeling but no impingementor signal alteration detected. There is ample CSF space dorsal to thecord over these levels. Thoraciccord signal appears normal. No evidence of marrow infiltrativeprocess. Images of the lumbar spine show grossly normal alignment. Moderate diffuselumbar discogenicdegeneration is present, not unexpected for age and most pronounced over the distallevels. Mildedema type discogenic marrow endplate changes over L5-S1. No evidence of compression fracture. Axial images show a right lateral/foraminal disc protrusion at L3-L4 whichnarrows the right neuralforamen. At L4-L5, focal right paracentral disc protrusion is present whichdistorts the right paramedianthecal sac and may have displacing and/or compressive effect on the descendingright L5 nerve rootat the subarticular level. Moderate bilateral neural foraminal narrowing presentat this level. At L5-S1, moderate spondylotic disc bulging flattens the ventral thecalsac with mild bilateralsubarticular narrowing. There is relatively high-grade bilateralneural foraminal narrowing at thislevel. IMPRESSION: Diffuse thoracic and lumbar discogenic degeneration as outlined in detailabove. Scatterededema type discogenic marrow endplate changes over the mid-distal thoracic levels maybe paingenerating. No evidence of compression fracture. Several small thoracic disc herniations arenotedwith cord remodeling but no impingement or signal alteration. Lumbar spine showsdiscogenicdegeneration which is most pronounced distally with focal right paracentral disc protrusion atL4-L5 possiblyneurocompressive and with relatively high-grade bilateral neural foraminal narrowingat L5-S1. Noevidence of acute compression fracture. - Dictated By: Tucker Santillan D.O. Electronically Signed By: Tucker Santillan D.O. Date Signed: 06/24/06 AMA us Aretha Rose MD MR ORDERABLES Final Resul t documented in this encounter Visit Diagnoses Diagnosis Thoracic spondylosis without myelopathy- Primary documented in this encounter Care Teams Correction Worker Relationship Specialty Start Date End Date Jessica Mccabe MD [address] [phone] PCP - General Family Practice 05/07/18 documented as of this encounter
--- OUTSIDE RECORDS SUMMARY | 2024-10-25 18:24 | XMS_ITS | Encounter Summary ---
Author Organization [facility] Address [address] [place] [address] Care Team Providers Care Knife Sharpener Name Role Phone Jessica Mccabe MD Primary Care Provider Encounter Details Date Type Department Care Team (Latest Contact Info) Description 08/12/2006 Outpatient Historical [facility] Pain [facility] [address] 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
--- OUTSIDE RECORDS SUMMARY | 2024-10-25 18:24 | XMS_ITS | Encounter Summary ---
Author Organization [facility] Address [address] [place] [address] Care Team Providers Care Scrap Baller Name Role Phone Jessica Mccabe MD Primary Care Provider Encounter Details Date Type Department Care Team (Latest Contact Info) Description 07/02/2000 Outpatient Historical [facility] Family Medicine- [place] [address] [place] [address] Efren Trevino, DO NO ADDRESS ON FILE Need vaccination-viral disease (Primary Dx) Social History Tobacco Use Types Packs/Day Years Used Date Smoking Tobacco: Never Assessed Sex and Gender Information Value Date Recorded Sex Assigned at Not on file 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
--- OUTSIDE RECORDS SUMMARY | 2024-10-25 18:24 | XMS_ITS | Encounter Summary ---
Author Organization [facility] Address [address] [place] [address] Care Team Providers Care Tile Designer Name Role Phone Jessica Mccabe MD Primary Care Provider Encounter Details Date Type Department Care Team (Latest Contact Info) Description 04/24/1999 Outpatient Historical [facility] Family Medicine- [place] [address] [place] [address] Efren Trevino, DO NO ADDRESS ON FILE Hyperplasia of prostate (Primary Dx); Other and unspecified hyperlipidemia; Screening for malignant neoplasm of the rectum; Need vaccination-viral disease Social History Tobacco Use Types Packs/Day Years Used Date Smoking Tobacco: Never Assessed Sex and Gender Information Value Date Recorded Sex Assigned at Not on file 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 Gender Identity Not on file Sexual Orientation Not on file documented as of this encounter Plan of Treatment Not on file documented as of this encounter Visit Diagnoses Diagnosis Hyperplasia of prostate- Primary Other and unspecified hyperlipidemia Screening for malignant neoplasm of the rectum Need vaccination-viral disease Need for prophylactic vaccination and inoculation against other viral diseases documented in this encounter Care Teams Tile Designer Relationship Specialty Start Date End Date Jessica Mccabe MD [address] [facility] [address] [place] [address] PCP - General Family Practice 05/07/18 documented as of this encounter
--- OUTSIDE RECORDS SUMMARY | 2024-10-25 18:24 | XMS_ITS | Encounter Summary ---
Author Organization [facility] Address [address] [place] [address] Care Team Providers Care Adoption Services Manager Name Role Phone Jessica Mccabe MD Primary Care Provider Encounter Details Date Type Department Care Team (Latest Contact Info) Description 08/26/2006 Outpatient [facility] [address] [phone] Gasper Nick Adhesive Capsulitis of Shoulder (Primary Dx) Social History Tobacco Use Types Packs/Day Years Used Date Smoking Tobacco: Never Assessed Sex and Gender Information Value Date Recorded Sex Assigned at Not on file 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
--- OUTSIDE RECORDS SUMMARY | 2024-10-25 18:24 | XMS_ITS | Encounter Summary ---
Author Organization [facility] Address [address] [place] [address] Care Team Providers Care Light Bulb Tester Name Role Phone Jessica Mccabe MD Primary Care Provider Encounter Details Date Type Department Care Team (Latest Contact Info) Description 05/01/2001 Outpatient Historical [facility] Family Medicine- [place] [address] [place] [address] Dexter Colin MD [address] [facility] [address] [place] [phone] Need vaccination-viral disease (Primary Dx) Social History Tobacco Use Types Packs/Day Years Used Date Smoking Tobacco: Never Assessed Sex and Gender Information Value Date Recorded Sex Assigned at Not on file 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
--- OUTSIDE RECORDS SUMMARY | 2024-10-25 18:24 | XMS_ITS | Encounter Summary ---
Author Organization [facility] Address [address] [place] [address] Care Team Providers Care P 3 Armament/Ordnance Ima Technician Name Role Phone Jessica Mccabe MD Primary Care Provider Encounter Details Date Type Department Care Team (Latest Contact Info) Description 02/18/2003 Outpatient Historical [facility] Family Medicine- [address] [phone] Dexter Colin MD [address] [address] HYPERLIPIDEMIA NEC/NOS (Primary Dx); Benign aissatou skin leg Social History Tobacco Use Types Packs/Day Years Used Date Smoking Tobacco: Never Assessed Sex and Gender Information Value Date Recorded Sex Assigned at Not on file 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
--- OUTSIDE RECORDS SUMMARY | 2024-10-25 18:24 | XMS_ITS | Encounter Summary ---
Author Organization [facility] Address [address] [place] [address] Care Team Providers Care Engravings Polisher Name Role Phone Jessica Mccabe MD Primary Care Provider [phone] Encounter Details Date Type Department Care Team (Latest Contact Info) Description 08/12/2006 Outpatient [facility] [address] [phone] Gasper Nick Enthesopathy of Hip Region (Primary Dx) Social History Tobacco Use Types Packs/Day Years Used Date Smoking Tobacco: Never Assessed Sex and Gender Information Value Date Recorded Sex Assigned at Not on file 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
--- OUTSIDE RECORDS SUMMARY | 2024-10-25 18:24 | XMS_ITS | Encounter Summary ---
Author Organization [facility] Address [address] [place] [address] Care Team Providers Care Insurance Agent Name Role Phone Jessica Mccabe MD Primary Care Provider Encounter Details Date Type Department Care Team (Latest Contact Info) Description 03/12/2005 Outpatient Historical [facility] Medicine- [address] [phone] Dexter Colin MD [address] [address] HYPERTENSION NOS (Primary Dx); HEADACHE Social History Tobacco Use Types Packs/Day Years Used Date Smoking Tobacco: Never Assessed Sex and Gender Information Value Date Recorded Sex Assigned at Not on file 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
--- OUTSIDE RECORDS SUMMARY | 2024-10-25 18:24 | XMS_ITS | Encounter Summary ---
Author Organization [facility] Address [address] [place] [address] Care Team Providers Care Dentist/Owner Name Role Phone Jessica Mccabe MD Primary Care Provider Encounter Details Date Type Department Care Team (Latest Contact Info) Description 12/10/2005 Outpatient Historical 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
--- OUTSIDE RECORDS SUMMARY | 2024-10-25 18:24 | XMS_ITS | Encounter Summary ---
Author Organization [facility] Address [address] [place] [address] Care Team Providers Care Information Technology Coordinator Name Role Phone Jessica Mccabe MD Primary Care Provider Encounter Details Date Type Department Care Team (Latest Contact Info) Description 03/30/2003 Outpatient Historical [facility] Medicine- [address] [phone] Dexter Colin MD [address] [phone] Dermatitis due to plant (Primary Dx) Social History Tobacco Use Types Packs/Day Years Used Date Smoking Tobacco: Never Assessed Sex and Gender Information Value Date Recorded Sex Assigned at Not on file 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
--- OUTSIDE RECORDS SUMMARY | 2024-10-25 18:24 | XMS_ITS | Encounter Summary ---
Author Organization [facility] Address [address] [place] [address] Care Team Providers Care Senior Pl Sql Developer Name Role Phone Jessica Mccabe MD Primary Care Provider [phone] Encounter Details Date Type Department Care Team (Late st Contact Info) Description 07/09/2007 Outpatient Historical [facility] [address] 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
--- OUTSIDE RECORDS SUMMARY | 2024-10-25 18:24 | XMS_ITS | Encounter Summary ---
Author Organization [facility] Address [address] [place] [address] Care Team Providers Care Button And Buckle Maker Name Role Phone Jessica Mccabe MD Primary Care Provider Encounter Details Date Type Department Care Team (Late st Contact Info) Description 07/15/2007 Outpatient Historical [facility] [address] [address] [address] [place] [address] Royer Johnson DO NO ADDRESS ON FILE Social History Tobacco Use Types Packs/Day Years Used Date Smoking Tobacco: Never Assessed Sex and Gender Information Value Date Recorded Sex Assigned at Not on file 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
--- OUTSIDE RECORDS SUMMARY | 2024-10-25 18:24 | XMS_ITS | Encounter Summary ---
Author Organization [facility] Address [address] [place] [address] Care Team Providers Care Newspaper Illustrator Name Role Phone Jessica Mccabe MD Primary Care Provider Encounter Details Date Type Department Care Team (Latest Contact Info) Description 06/03/2003 Outpatient Historical [facility] Family Medicine- [place] [address] [place] [address] Aretha Rose MD NO ADDRESS ON FILE Vaccine for influenza (Primary Dx) Social History Tobacco Use Types Packs/Day Years Used Date Smoking Tobacco: Never Assessed Sex and Gender Information Value Date Recorded Sex Assigned at Not on file 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
--- OUTSIDE RECORDS SUMMARY | 2024-10-25 18:24 | XMS_ITS | Encounter Summary ---
Author Organization [facility] Address [address] [place] [address] Care Team Providers Care Dining Room Busser Name Role Phone Jessica Mccabe MD Primary Care Provider Encounter Details Date Type Department Care Team (Latest Contact Info) Description 12/01/2006 Outpatient Historical [facility] Medicine- [address] [phone] Inderjit Naylor PA NO ADDRESS ON FILE Unspecified Essential Hypertension (Primary Dx); Pain in Joint, Shoulder Region Social History Tobacco Use Types Packs/Day Years Used Date Smoking Tobacco: Never Assessed Sex and Gender Information Value Date Recorded Sex Assigned at Not on file 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
--- OUTSIDE RECORDS SUMMARY | 2024-10-25 18:24 | XMS_ITS | Encounter Summary ---
Author Organization [facility] Address [address] [place] [address] Care Team Providers Care Teaching Pastor Name Role Phone Jessica Mccabe MD Primary Care Provider Encounter Details Date Type Department Care Team (Latest Contact Info) Description 07/11/2004 Outpatient Historical [facility] Family Medicine- [address] [phone] Dexter Colin MD [address] [phone] CHRONIC SINUSITIS NOS (Primary Dx) Social History Tobacco Use Types Packs/Day Years Used Date Smoking Tobacco: Never Assessed Sex and Gender Information Value Date Recorded Sex Assigned at Not on file 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
--- OUTSIDE RECORDS SUMMARY | 2024-10-25 18:24 | XMS_ITS | Encounter Summary ---
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
--- OUTSIDE RECORDS SUMMARY | 2024-10-25 18:24 | XMS_ITS | Encounter Summary ---
Author Organization 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
--- OUTSIDE RECORDS SUMMARY | 2024-10-25 18:24 | XMS_ITS | Encounter Summary ---
Author Organization [facility] Address [address] [place] [address] Care Team Providers Care Steel Chipper Name Role Phone Jessica Mccabe MD Primary Care Provider Encounter Details Date Type Department Care Team (Latest Contact Info) Description 11/26/2000 Outpatient Historical [facility] Family Medicine- [address] [phone] Dexter Colin MD [address] [phone] Other general medical examination for administrative purposes (Primary Dx) Social History Tobacco Use Types Packs/Day Years Used Date Smoking Tobacco: Never Assessed Sex and Gender Information Value Date Recorded Sex Assigned at Not on file 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
--- OUTSIDE RECORDS SUMMARY | 2024-10-25 18:24 | XMS_ITS | Encounter Summary ---
Author Organization [facility] Address [address] [place] [address] Care Team Providers Care Tool Straightener Name Role Phone Jessica Mccabe MD Primary Care Provider Encounter Details Date Type Department Care Team (Latest Contact Info) Description 06/01/2001 Outpatient Historical [facility]- [place] [address] [place] [address] Aretha Rose MD NO ADDRESS ON FILE VACCINE FOR TETANUS + DIPHTHERIA (Primary Dx) Social History Tobacco Use Types Packs/Day Years Used Date Smoking Tobacco: Never Assessed Sex and Gender Information Value Date Recorded Sex Assigned at Not on file 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
--- OUTSIDE RECORDS SUMMARY | 2024-10-25 18:24 | XMS_ITS | Clinical Summary ---
Author Organization [facility] Address [address] [facility] [place] [address] Care Team Providers Care Pearl Diver Name Role Phone Damon Edmonds MD Primary Care Provider [phone] Allergies No known active allergies Medications mupirocin (BACTROBAN) 2 % OintmentIndicatio ns:Nasal septal ulcer Apply to affected area daily. 30 Gram 2 2 Active cetirizine (ZyrTEC) 10 mg tabletIndications :Allergic rhinitis, unspecified seasonality, unspecified trigger Take 1 Tablet (10 mg) by mouth daily at bedtime. 30 Tablet 2 2 Active ofloxacin (OCUFLOX) 0.3 % solution 3 Active acetaminophen (TylenoL) 325 mg tablet Take 325 mg by mouth every 6 hours as needed. Active bumetanide (BUMEX) 1 mg tabletIndications :Chronic heart failure with preserved ejection fraction (CMS/HCC) Take 1 Tablet (1 mg) by mouth daily. 90 Tablet 1 4 Active apixaban (Eliquis) 5 mg tabletIndications :Atrial fibrillation, unspecified type (CMS/HCC) Take 1 Tablet (5 mg) by mouth 2 times daily. 180 Tablet 1 4 Active lisinopriL (PRINIVIL) 20 mg tabletIndications :Chronic heart failure with preserved ejection fraction (CMS/HCC) Take 1 Tablet (20 mg) by mouth daily. 100 Tablet 3 4 Active tiZANidine (ZANAFLEX) 2 mg TabletIndications :History of lumbar spinal fusion,DDD (degenerative disc disease), lumbar Take 1 Tablet (2 mg) by mouth every 8 hours as needed for Spasm or Pain. 60 Tablet 1 4 Active cyclobenzaprine (FLEXERIL) 5 mg Tablet Take 5 mg by mouth 3 times daily. 4 Active oxyCODONE (ROXICODONE) 10 mg tablet Take 1 Tablet by mouth every 4 hours as needed for Pain. 4 Active spironolactone (ALDACTONE) 50 mg tabletIndications :Chronic heart failure with preserved ejection fraction (CMS/HCC) Take 1 tablet by mouth once daily 100 Tablet 5 Active naloxegoL (Movantik) 12.5 mg TabletIndications :Opioid-induced constipation Take 1 Tablet (12.5 mg) by mouth daily before breakfast. 30 Tablet 5 5 Active amoxicillin (AMOXIL) 500 mg TabletIndications :Sore throat Take 1 Tablet (500 mg) by mouth every 12 hours for 10 days. 20 Tablet 5 10/09/19 25 Active Problems Problem Noted Date Diagnosed Date Moderate aortic stenosis 10/07/2024 Retained orthopedic hardware 10/07/2024 Opioid-induced constipation 09/02/2024 Left bundle branch block 08/31/2024 Complication of surgical procedure 02/17/2024 Chronic heart failure with preserved ejection fr action 01/07/2022 Atrial fibrillation 07/26/2021 History of lumbar spinal fusion 07/26/2021 Morbid obesity with body mass index of 40.0-49.9 06/26/2020 History of squamous cell carcinoma of skin 01/02 Post-operative state 11/26/2013 Heel spur 04/06/2012 Facet arthritis of lumbosacral region 08/01/2011 Overview (11/09/2020): Lumbar fusion 2015 DDD (degenerative disc disease), lumbar 08/01/19 12 Overview (11/09/2020): All 5 levels Chronic bilateral low back pain without sciatica 08/01/2011 Elevated PSA 03/25/2011 Overview (11/09/2020): PSA: 6.2 (12/22); 3.3 (11/21) HTN (hypertension) 03/25/2011 Resolved Problems Problem Noted Date Diagnosed Date Resolved Date Anticoagulated on Coumadin 12/23/2017 0 03/02/2024 Chest pain 12/08/2012 07/26/2021 Jaw pain 12/08/2012 07/26/2021 Abnormal EKG 12/08/2012 01/07/2022 Stenosis, spinal, lumbar 05/18/2010 Overview (11/08/2020): To right at L3-4 and L4-5 Right foot drop 05/18/2010 08/01/2011 Lumbar radiculopathy 04/24/2010 012 Polymyalgia rheumatica 06/29 Encounters Date Type Department Care Team Description 10/15/2024 External Device Data Initial Department [address] [place] [address] Dr PEREZ: Prelude ADT [place], [place] Aaron Fulton Md 10/12/2024 External Device Data Initial Department [address] [place] [address] Dr PEREZ: Prelude ADT [place], [place] Aaron Fulton Md 10/08/2024 External Device Data Initial Department [address] [place] [address] Dr PEREZ: Prelude ADT [place], [place] Aaron Fulton Md 10/07/2024 1:20 PM CDT Office Visit [address] [phone] Damon Edmonds MD Degeneration of intervertebral disc of lumbar region with discogenic back pain and lower extremity pain (Primary Dx); SK (seborrheic keratosis); History of lumbar spinal fusion; Retained orthopedic hardware; Paroxysmal atrial fibrillation (CMS/HCC); Chronic heart failure with preserved ejection fraction (CMS/HCC); Moderate aortic stenosis 10/05/2024 External Device Data Initial Department [address] [place] [address] Dr PEREZ: Prelude ADT [place], [place] Aaron Fulton Md 10/01/2024 External Device Data Initial Department [address] [place] [address] Dr PEREZ: [place] [address] [facility], 09/30/2024 Abstract [facility] [address] [address] Provider, Abstract 09/30/[address] [address] Damon Edmonds MD 09/29/2024 External Device Data [facility] Provider, Abstract 09/29/2024 External Device Data [facility] Provider, Abstract 09/29/[address] [address] Damon Edmonds MD Provider Call 09/28/2024 2:00 PM CDT Office Visit [address] [phone] Marissa Rushing, PAYROLL OFFICER Sore throat (Primary Dx); Acute pharyngitis, unspecified etiology 09/28/[address] [address] Provider, Abstract 09/28/2024 External Device Data Initial Department [address] [place] [address] Dr PEREZ: Prelude [place], [place] [address], 09/27/[address] [address] Provider, Abstract 09/24/2024 External Device Data Initial Department [address] [place] [address] Dr PEREZ: Prelude [place], [place] [address] 09/21/2024 External Device Data Initial Department [address] [place] [address] Dr PEREZ: [place] [address] [facility] 09/17/2024 External Device Data Initial Department [address] [place] [address] Dr PEREZ: [place] [address] [facility] 09/14/2024 External Device Data Initial Department [address] [place] [address] Dr PEREZ: [place] [address] [facility] 09/07/2024 External Device Data [facility] Provider, Abstract 09/07/2024 External Device Data [facility] Provider, Abstract 09/07/2024 External Device Data [facility] Provider, Abstract 09/07/2024 External Device Data Initial Department [address] [place] [address] Dr PEREZ: [place] [address] [facility] 09/03/2024 External Device Data Initial Department [address] [place] [address] Dr PEREZ: [place] [address] [facility] 09/02/2024 11:20 AM MACHINE ROOM ENGINEER Office Visit [address] [address] Damon Edmonds MD Persistent atrial fibrillation (CMS/HCC) (Primary Dx); Chronic heart failure with preserved ejection fraction (CMS/HCC); Left bundle branch block; Opioid-induced constipation; Primary hypertension; Morbid obesity with body mass index of 40.0-49.9 (CMS/HCC); Bereavement 09/02/2024 External Device Data Initial Department [address] [place] [address] Dr PEREZ: [place] [address] [facility] 09/01/2024 External Device Data [facility] Provider, Abstract 08/31/2024 11:30 AM MACHINE ROOM ENGINEER - 08/31/2024 2:16 PM [facility] Emergency [facility] Emergency Medicine [address] [phone] Kristyn Kwok MD Left bundle branch block (Primary Dx); Atrial fibrillation, unspecified type (CMS/HCC); Chronic heart failure with preserved ejection fraction (CMS/HCC) Discharge Disposition: Home or Self Care 08/31/2024 11:20 AM MACHINE ROOM ENGINEER Office Visit [address] [phone] Shonda Trimble FNP Chest pain due to myocardial ischemia, unspecified ischemic chest pain type (Primary Dx); Atrial fibrillation, unspecified type (CMS/HCC); Chronic heart failure with preserved ejection fraction (CMS/HCC); Severe obesity (BMI 35.0-39.9) with comorbidity (CMS/HCC); Hypertension, unspecified type; Left bundle branch block 08/31/[address] [address] Damon Edmonds MD ER follow up 08/31/2024 Travel 08/13/[address] [address] Damon Edmonds MD Chronic heart failure with preserved ejection fraction (CMS/HCC) 08/10/2024 External Device Data [facility] Provider, Abstract 08/04/2024 External Device Data [facility] Provider, Abstract 08/04/2024 External Device Data [facility] Provider, Abstract 08/03/2024 9:00 AM MACHINE ROOM ENGINEER Office Visit [address] [phone] Shonda Trimble, FISHER QUAHOG Infection of toenail (Primary Dx); Frail elderly; Chronic heart failure with preserved ejection fraction (CMS/HCC); Atrial fibrillation, unspecified type (CMS/HCC); Severe obesity (BMI 35.0-39.9) with comorbidity (CMS/HCC) 07/29/2024 8:00 AM MACHINE ROOM ENGINEER Office Visit [address] [phone] Kirstie Lopez, FISHER QUAHOG Ingrowing nail, left great toe (Primary Dx); Onychomycosis 07/28/2024 Orders Only [address] [phone] Santos, Shefali Tucker, FISHER QUAHOG Breast tenderness in male (Primary Dx) from Last 3 Months Immunizations Immunization Administration Dates Next Due (PNEUMOVAX 23)(50 YRS UP) PN EUMOCOCCAL POLYSACCHARIDE (PPV23) 0.5 ML, IM 02/26/2023 (PREVNAR 20)(6 WKS UP) PNEUM OCOCCAL CONJUGATE VACCINE 20-VALENT (PCV20), POLYSACCHARIDE PIP182 CONJUGATE, ADJUVANT 0.5 ML (PF) IM 06/16/2024 (TDVAX)(7 YRS UP) TETANUS AN D DIPHTHERIA TOXOIDS, ADSORBED (2 LF OF TETANUS TOXOID AND 2 LF OF DIPHTHERIA TOXOID), 0.5ML (PF), IM 06/01/2001,06/01/2001 (TENIVAC)(7 YRS UP) TETANUS AND DIPHTHERIA TOXOIDS, ADSORBED (5 LF OF TETANUS TOXOID AND 2 LF OF DIPHTHERIA TOXOID), 0.5ML (PF), IM 03/26/2016,03/26/2016 INFLUENZA VACCINE HIGH DOSE QUADRIVALENT 65 YR UP PF IM 05/14/2024,04/27/2024,04/22/2023,05/08,06/27/2021,04/19/2020,05/19/2019 ,04/09/2018 Influenza Seasonal Unspecifi ed Formulation IM 05/05/2023,06/03/2003,06/03/2003,05/01,05/01/2001,07/02/2000,07/02/2000 ,04/24/1999,04/24/1999 Influenza Vaccine High Dose 65+ Yrs IM 1 ,04/19/2020,05/19/2019,05/19,04/09/2018,04/09/2018 Typhoid Vaccine, Unspecified Formulation 03/26/2016 Zoster Vaccine Live SQ 04/07/2024 Family History Medical History Relation Name Comments Cancer Father Diabetes Mother Heart Disease Mother Hypertension Mother Relation Name Status Comments Father Mother Social History Tobacco Use Types Packs/Day Years Used Date Smoking Tobacco: Never Passive Smoke Exposure: Never Smokeless Tobacco: Never Tobacco Cessation:Counseling Given: [...] on file Legal Sex Male 11:15 AM MACHINE ROOM ENGINEER Gender Identity Not on file Sexual Orientation Not on file Last Filed Vital Signs [...] Mass Index 40.75 10/07/2024 1:21 PM CDT Plan of Treatment Upcoming Encounters Date Type Department Care Team (Late st Contact Info) Description 11/26/2024 11:40 AM CDT Office Visit [address] [phone] Damon Edmonds MD [address] [phone] 02/17/2025 11:00 AM CDT Office Visit [facility] [address] [phone] Damon Edmonds MD [address] [phone] Health Maintenance Due Date Last Done Comments RSV VACCINE (60+ or ) (1 - 1-dose 75+ series) 2013 DTAP/TDAP/TD VACCINES (1 - Tdap) 03/27/2016 03/26/2016, 03/26/2016, 06/01/2001, Additional history exists COVID-19 Vaccine (4 - 2023-2 5 season) 2024 04/27/2021, 09/08/2020, 08/11/2020 ZOSTER VACCINE (2 of 3) 06/02/2024 04/07/2024 Traditional Medicare (ACO) A nnual Wellness Visit 02/17/2025 02/17/2024, 06/12/2022, 04/23/2021 INFLUENZA VACCINE Completed 05/14/2024, , 05/05/2023, Additional history exists PNEUMOCOCCAL VACCINE 50+ YEARS Completed 06/16/2024 , 02/26/2023 Procedures Procedure Name Priority Date/Time Associated Diagnosis Comments POC RAPID STREP A ANTIGEN Routine 09/28/2024 2:00 PM CDT Sore throat TROPONIN 2 HR, 5TH GEN Timed Study 08/31/2024 1:24 PM MACHINE ROOM ENGINEER EKG 12-LEAD Stat 08/31/2024 12:36 PM MACHINE ROOM ENGINEER TROPONIN BASELINE, 5TH GEN Stat 08/31/2024 11:40 AM MACHINE ROOM ENGINEER MAGNESIUM LEVEL Stat 08/31/2024 11:40 AM MACHINE ROOM ENGINEER C-REACTIVE PROTEIN Stat 08/31/2024 11 :40 AM MACHINE ROOM ENGINEER LACTIC ACID Stat 08/31/2024 11:40 AM MACHINE ROOM ENGINEER BRAIN NATRIURETIC PEPTIDE, BNP OR PROBNP Stat 08/31/2024 11:40 AM MACHINE ROOM ENGINEER COMPREHENSIVE METABOLIC PANEL Stat 08/31/2024 11:40 AM MACHINE ROOM ENGINEER SEDIMENTATION RATE Stat 08/31/2024 11 :40 AM MACHINE ROOM ENGINEER D-DIMER Stat 08/31/2024 11:40 AM MACHINE ROOM ENGINEER PTT Stat 08/31/2024 11:40 AM MACHINE ROOM ENGINEER PROTIME-INR Stat 08/31/2024 11:40 AM MACHINE ROOM ENGINEER CBC WITH DIFFERENTIAL Stat 08/31/2024 11:40 AM MACHINE ROOM ENGINEER VT ECG ROUTINE ECG W/LEAST 12 LDS W/I&R Routine 08/31/2024 11:20 AM MACHINE ROOM ENGINEER Chest pain due to myocardial ischemia, unspecified ischemic chest pain type VT AVULSION NAIL PLATE PARTIAL/COMPLETE SIMPLE 1 Routine 07/29/2024 8:00 AM MACHINE ROOM ENGINEER Ingrowing nail, left great toe from Last 3 Months Results * POC RAPID STREP A ANTIGEN (09/28/2024 2:00 PM CDT) RAPID STREP POC Negative Negative, Indeterminate [facility] INTERNAL KIT QC POC Pass Pass [facility] KIT LOT NUMBER POC [phone] [facility] KIT EXP DATE POC 11/06/2025 [facility] READ METHOD POC Visual [facility] Upper Respiratory SPECIMEN FROM THROAT / Unknown 09/28/2024 2:00 PM CDT us Marissa Rushing [employer]YROLL OFFICER POINT OF CARE TESTING Final Re sult [facility] CLIA# [id number] [address] [place] [address] * (ABNORMAL) TROPONIN 2 HR, 5TH GEN (08/31/2024 1:24 PM MACHINE ROOM ENGINEER) TROPONIN T, 2 HR 5TH GEN 38(H) <=15 ng/L 08/31/2024 1:47 PM MACHINE ROOM ENGINEER [facility] DELTA 2HR TROPONIN T -3 See Interp. 08/31/2024 1:47 PM MACHINE ROOM ENGINEER [facility] Blood BLOOD SPECIMEN / Unknown Collection / Unknown 08/31/2024 1:24 PM MACHINE ROOM ENGINEER 08/31/2024 1:30 PM MACHINE ROOM ENGINEER [facility] - 08/31/2024 1:47 PM MACHINE ROOM ENGINEER Troponin elevated. Delta not changing. us Kristyn Kwok MD CHEMISTRY ORDERABLES Final Resu lt [facility] CLIA # [id number] [address] [place] [address] * EKG 12 lead (08/31/2024 12:36 PM MACHINE ROOM ENGINEER) Only the most recent of2 resultswithin the time period is included. Narrative Kristyn Kwok MD - 08/31/2024 12:36 PM MACHINE ROOM ENGINEER Kristyn Kwok MD ? 08/31/2024 ??2:12 PM EKG 12 lead Date/Time: 08/31/2024 12:36 PM Performed by: Kristyn Kwok MD Authorized by: Kristyn Kwok MD ?? ECG interpreted by ED Physician in the absence of a sr. manager: yes ?? Rate: ??ECG rate: ??73 ??ECG rate assessment: age appropriate ?? Rhythm: ??Rhythm Origin: atrial ?Rhythm morphology: fibrillation ?? [place]: ??QRS axis: ??Left Blocks: ??BBB: ??Left QRSTT: ??QRSTT changes: Yes ?? Comments: ?? TWI in leas aVL, however no other contiguous lead abnormality present. No ST segment abnormality. us Kristyn Kwok MD ECG ORDERABLES Final Result * (ABNORMAL) TROPONIN BASELINE, 5TH GEN (08/31/2024 11:40 AM MACHINE ROOM ENGINEER) TROPONIN T, BASELINE 5TH GEN 41(H) <=15 ng/L 08/31/2024 12:07 PM MACHINE ROOM ENGINEER [facility] Blood Collection / Unknown 08/31/2024 11:40 AM MACHINE ROOM ENGINEER 08/31/2024 11:50 AM MACHINE ROOM ENGINEER [facility] - 08/31/2024 12:07 PM MACHINE ROOM ENGINEER Troponin elevated. us Kristyn Kwok MD CHEMISTRY ORDERABLES Final Resu lt [facility] CLIA # [id number] [address] [place] [address] * LACTIC ACID (08/31/2024 11:40 AM MACHINE ROOM ENGINEER) LACTIC ACID 1.4 <=2.0 mmol/L 08/31/2024 12:04 PM [facility] Blood BLOOD SPECIMEN / Unknown Collection / Unknown 08/31/2024 11:40 AM MACHINE ROOM ENGINEER 08/31/2024 11:50 AM MACHINE ROOM ENGINEER us Kristyn Kwok MD CHEMISTRY ORDERABLES Final Resu lt Performing Organization Address [facility]/ZIP Co de [facility] Number [id number] [address] [place] [address] * (ABNORMAL) CBC WITH DIFFERENTIAL (08/31/2024 11:40 AM MACHINE ROOM ENGINEER) Pathologist [facility] WBC 6.9 4.2 - 9.1 K/uL 08/31/2024 11:54 AM [facility] RBC 3.82(L) 4.63 - 6.08 M/uL 08/31/2024 11:54 AM [facility] HEMOGLOBIN 11.9(L) 13.7 - 17.5 g/dL 08/31/2024 11:54 AM [facility] HEMATOCRIT 36.0(L) 40.1 - 51.0 % 08/31/2024 11:54 AM [facility] MCV 94.2(H) 79.0 - 92.2 fL 08/31/2024 11:54 AM [facility] MCH 31.2 25.7 - 32.2 pg 08/31/2024 11:54 AM [facility] MCHC 33.1 32.3 - 36.5 g/dL 08/31/2024 11:54 AM [facility] RDW 13.6 11.0 - 14.5 % 08/31/2024 11:54 AM [facility] RDW-STDEV 46.8 36.9 - 56.9 fL 08/31/2024 11:54 AM [facility] PLATELETS 214 130 - 400 K/uL 08/31/2024 11:54 AM [facility] MPV 9.4(L) 10.0 - 14.8 fL 08/31/2024 11:54 AM [facility] NEUTROPHILS 56 34 - 68 % 08/31/2024 11:54 AM [facility] LYMPHOCYTES 29 22 - 53 % 08/31/2024 11:54 AM [facility] MONOCYTES 11 5 - 12 % 08/31/2024 11:54 AM [facility] EOSINOPHILS 1 1 - 7 % 08/31/2024 11:54 AM [facility] BASOPHILS 0 0 - 1 % 08/31/2024 11:54 AM [facility] IMMATURE GRANULOCYTES 2 % 08/31/2024 11:54 AM [facility] NEUTROPHIL ABSOLUTE 3.88 1.78 - 5.38 K/uL 08/31/2024 11:54 AM [facility] LYMPHOCYTE ABSOLUTE 2.03 1.20 - 3.40 K/uL 08/31/2024 11:54 AM [facility] MONOCYTE ABSOLUTE 0.79 0.30 - 0.82 K/uL 08/31/2024 11:54 AM [facility] EOSINOPHIL ABSOLUTE 0.09 0.04 - 0.54 K/uL 08/31/2024 11:54 AM [facility] BASOPHILS ABSOLUTE 0.02 0.01 - 0.08 K/uL 08/31/2024 11:54 AM [facility] IMMATURE GRANULOCYTES ABSOLUTE 0.11 K/uL 08/31/2024 11:54 AM [facility] Blood Collection / Unknown 08/31/2024 11:40 AM MACHINE ROOM ENGINEER 08/31/2024 11:50 AM MACHINE ROOM ENGINEER us Kristyn Kwok MD HEMATOLOGY ORDERABLES Final Res ult [facility] CLIA # [id number] [address] [place] [address] * PTT (08/31/2024 11:40 AM MACHINE ROOM ENGINEER) PTT 28.7 25.8 - 34.0 seconds 08/31/2024 12:00 PM [facility] Blood Collection / Unknown 08/31/2024 11:40 AM MACHINE ROOM ENGINEER 08/31/2024 11:50 AM MACHINE ROOM ENGINEER Kristyn Kwok MD HEMATOLOGY ORDERABLES Final Res ult Performing Organization Address [facility]/ZIP Co de Phone Number [facility] CLIA # [id number] [address] [place] [address] * SEDIMENTATION RATE (08/31/2024 11:40 AM MACHINE ROOM ENGINEER) Pathologist [facility] ESR (SEDIMENTATION RATE) 17 0 - 20 mm/Hr 08/31/2024 11:54 AM MACHINE ROOM ENGINEER [facility] Blood Collection / Unknown 08/31/2024 11:40 AM MACHINE ROOM ENGINEER 08/31/2024 11:50 AM MACHINE ROOM ENGINEER Narrative [facility] - 08/31/2024 11:54 AM MACHINE ROOM ENGINEER Tube Lot: #[id number] Exp Date: 02/10/2026 SR 0125-1 EXP. 01/15/25 SR 0125-2 EXP. 01/15/25 us Kristyn Kwok MD HEMATOLOGY ORDERABLES Final Res ult [facility] CLIA # [id number] [address] [place] [address] * PROTIME-INR (08/31/2024 11:40 AM MACHINE ROOM ENGINEER) PROTIME 14.5 11.9 - 14.6 Seconds 08/31/2024 12:00 PM [facility] INR 1.1 0.9 - 1.1 08/31/2024 12:00 PM [facility] Blood Collection / Unknown 08/31/2024 11:40 AM MACHINE ROOM ENGINEER 08/31/2024 11:50 AM MACHINE ROOM ENGINEER Kristyn Kwok MD HEMATOLOGY ORDERABLES Final Res ult [facility] CLIA # [id number] [address] [place] [address] * (ABNORMAL) D-DIMER (08/31/2024 11:40 AM MACHINE ROOM ENGINEER) D-DIMER QUANT 0.63(H) <0.50 ug/mL FEU 08/31/2024 12:04 PM MACHINE ROOM ENGINEER [facility] Blood Collection / Unknown 08/31/2024 11:40 AM MACHINE ROOM ENGINEER 08/31/2024 11:50 AM MACHINE ROOM ENGINEER Narrative [facility] - 08/31/2024 12:04 PM MACHINE ROOM ENGINEER D-Dimer assay cutoff value for exclusion of DVT and/or PE is <0.50 ug/mL FEU. As D-Dimer levels increase naturally with age, age stratification for patients over 50 is potentially more appropriate in determining whether a patient should undergo further evaluation for DVT and/or PE than a general cutoff of 0.50 ug/mL FEU. Clinical consideration is recommended. Age Stratified Cutoff Values: 50-60 years: 0.50-0.60 ug/mL FEU 61-70 years: 0.61-0.70 ug/mL FEU 71-80 years: 0.71-0.80 ug/mL FEU us Kristyn Kwok MD HEMATOLOGY ORDERABLES Final Res ult [facility] CLIA # [id number] [address] [place] [address] * (ABNORMAL) C-REACTIVE PROTEIN (08/31/2024 11:40 AM MACHINE ROOM ENGINEER) CRP 8.2(H) <5.0 mg/L 08/31/2024 12:07 PM MACHINE ROOM ENGINEER [facility] Blood Collection / Unknown 08/31/2024 11:40 AM MACHINE ROOM ENGINEER 08/31/2024 11:50 AM MACHINE ROOM ENGINEER us Kristyn Kwok MD CHEMISTRY ORDERABLES Final Resu lt Performing Organization Address [facility] Co de Phone Number [facility] CLIA # [id number] [address] [place] [address] * (ABNORMAL) BRAIN NATRIURETIC PEPTIDE, BNP OR PROBNP (08/31/2024 11:40 AM MACHINE ROOM ENGINEER) PROBNP, N TERMINAL 530(H) 0 - 450 pg/mL 08/31/2024 12:07 PM [facility] Comment: INTERPRETIVE COMMENT based on diagnosis: Diagnostic NT pro-BNP cutoffs for Heart Failure in the absence of renal failure is suggested for the following ranges ?? <75 ??years: <125 pg/mL >=75 ??years: <450 pg/mL Exclusionary rule out cut-point for Acute Decompensated Heart Failure(ADHF) All ages: <300 pg/mL Diagnostic NT pro-BNP cutoffs for Acute Decompensated Heart Failure(ADHF) in the absence of renal failure is suggested for the following ages ?? <50 ??years: > 450 ??pg/mL 50-75 years: > 900 ??pg/mL ?? >75 ??years: >1800 pg/mL Blood Collection / Unknown 08/31/2024 11:40 AM MACHINE ROOM ENGINEER 08/31/2024 11:50 AM MACHINE ROOM ENGINEER Result Elizabeth Kwok MD CHEMISTRY ORDERABLES Final Resu lt Performing Organization Address [facility]/ZIP Co de Phone Number [facility] CLIA # [id number] [address] [place] [phone] * MAGNESIUM LEVEL (08/31/2024 11:40 AM MACHINE ROOM ENGINEER) MAGNESIUM 2.2 1.6 - 2.4 mg/dL 08/31/2024 12:07 PM [facility] Blood Collection / Unknown 08/31/2024 11:40 AM MACHINE ROOM ENGINEER 08/31/2024 11:50 AM MACHINE ROOM ENGINEER us Kristyn Kwok MD CHEMISTRY ORDERABLES Final Resu lt [facility] CLIA # [id number] [address] [place] [address] * (ABNORMAL) COMPREHENSIVE METABOLIC PANEL (08/31/2024 11:40 AM MACHINE ROOM ENGINEER) SODIUM 133(L) 136 - 145 mmol/L 08/31/2024 12:07 PM [facility] POTASSIUM 5.0 3.5 - 5.1 mmol/L 08/31/2024 12:07 PM [facility] CHLORIDE 97(L) 98 - 107 mmol/L 08/31/2024 12:07 PM [facility] CO2 26 22 - 29 mmol/L 08/31/2024 12:07 PM [facility] CALCIUM 9.9 8.8 - 10.2 mg/dL 08/31/2024 12:07 PM [facility] BUN 34(H) 8 - 23 mg/dL 08/31/2024 12:07 PM [facility] CREATININE 1.25(H) 0.67 - 1.17 mg/dL 08/31/2024 12:07 PM [facility] Comment:The GFR result is no t clinically significant on patients <18 or >70 years of age. GLUCOSE 101(H) 74 - 99 mg/dL 08/31/2024 12:07 PM [facility] TOTAL PROTEIN 7.7 6.6 - 8.7 g/dL 08/31/2024 12:07 PM [facility] ALBUMIN 4.0 4.0 - 4.9 g/dL 08/31/2024 12:07 PM [facility] HOSPITAL BILIRUBIN TOTAL 0.3 <=1.2 mg/dL 08/31/2024 12:07 PM [facility] ALKALINE PHOSPHATASE 71 40 - 129 U/L 08/31/2024 12:07 PM [facility] AST 30 0 - 50 U/L 08/31/2024 12:07 PM [facility] ALT 17 0 - 50 U/L 08/31/2024 12:07 PM [facility] GFR 56 mL/min/1.7 3 sq meter 08/31/2024 12:07 PM [facility] Comment:eGFR calculated with 2020 CKD-EPI equation. Vegetarian diet, extremely high or low muscle mass, and may affect results. Cystatin C with Glomerular Filtration Rate is a suitable alternative for these patients. ANION GAP 10 5 - 20 mmol/L 08/31/2024 12:07 PM [facility] Blood Collection / Unknown 08/31/2024 11:40 AM MACHINE ROOM ENGINEER 08/31/2024 11:50 AM MACHINE ROOM ENGINEER us Kristyn Kwok MD CHEMISTRY ORDERABLES [id number] [address] [place] [id number] * [place] AVULSION NAIL PLATE PARTIAL/COMPLETE SIMPLE 1 (07/29/2024 8:00 AM MACHINE ROOM ENGINEER) Narrative [facility] [place] - 07/29/2024 8:00 AM MACHINE ROOM ENGINEER Kirstie Lopez FNP ? 07/29/2024 ??8:52 AM Nail Removal Date/Time: 07/29/2024 8:00 AM Performed by: Kirstie Lopez FNP Authorized by: Kirstie Lopez FNP ??Location: left foot Anesthesia: local infiltration Anesthesia: Local Anesthetic: lidocaine 2% without epinephrine Anesthetic total: 2 mL Sedation: Patient sedated: no Preparation: skin prepped with providone-iodine and skin prepped with alcohol Amount removed: 07/17 Side: medial Wedge excision of skin of nail fold: no Nail bed sutured: no Nail matrix removed: partial Removed nail replaced and anchored: no Dressing: tube gauze and Xeroform gauze Patient tolerance: patient tolerated the procedure well with no immediate complications us Kirstie Jennie Jessica FISHER QUAHOG PROCEDURE/MINOR SURGICAL ORDERABLES Final Result [facility] [place] CLIA# [id number] [address] [place] [address] from Last 3 Months Insurance MEDICARE PART A AND B [place]ICAID [place] Advance Directives For more information, please contact: [phone] * Full Code (Latest Code Status on File) Date Activated Date Inactivated Comments 03/29/2024 6:52 AM 03/29/2024 9:50 AM Care Teams Pearl Diver Relationship Specialty Start Date End Date Damon Edmonds MD [address] [place] [phone] PCP - General Family Practice 07/26/21
--- OUTSIDE RECORDS SUMMARY | 2024-10-25 18:24 | XMS_ITS | Encounter Summary ---
Author Organization [facility] Address [address] [place] [address] Care Team Providers Care Property Underwriter Name Role Phone Jessica Mccabe MD Primary Care Provider Encounter Details Date Type Department Care Team (Latest Contact Info) Description 06/18/[address] 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
--- OUTSIDE RECORDS SUMMARY | 2024-10-25 18:24 | XMS_ITS | Encounter Summary ---
Author Organization 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 Gender Identity Not on file Sexual Orientation Not on file documented as of this encounter Plan of Treatment Not on file documented as of this encounter Procedures Procedure Name Priority Date/Time Associated Diagnosis Comments ALT Routine 10/26/2004 9:00 AM CDT LIPID PANEL Routine 10/26/2004 9:00 AM CDT BASIC METABOLIC PANEL Routine 10/26/2004 9:00 AM CDT documented in this encounter Results * ALT (10/26/2004 9:00 AM CDT) ALT 30 21 - 72 IU/L INTERFACE SYSTEM 10/26/2004 9:00 AM CDT Inderjit ALSTON CHEMISTRY ORDERABLES Final Re sult Performing Organization Address City/[facility] Co de Phone Number INTERFACE SYSTEM Refer to clinic/hospital department * (ABNORMAL) LIPID PANEL (10/26/2004 9:00 AM CDT) CHOLESTEROL 240(H) 75 - 200 mg/dL INTERFACE SYSTEM TRIGLYCERIDE 108 0 - 200 mg/dL INTERFACE SYSTEM CALCULATED TOTAL CHOLESTEROL TO HDL RATIO 4.62 3.43 - 4.97 INTERFACE SYSTEM HDL 52 40 - 60 mg/dL INTERFACE SYSTEM LDL CALCULATED 166(H) 0 - 130 mg/dL INTERFACE SYSTEM 10/26/2004 9:00 AM CDT Inderjit ALSTON CHEMISTRY ORDERABLES Final Re sult Performing Organization Address [facility] Phone Number INTERFACE SYSTEM Refer to clinic/hospital department * BASIC METABOLIC PANEL (10/26/2004 9:00 AM CDT) GLUCOSE 89 70 - 110 mg/dL INTERFACE SYSTEM BUN 18 9 - 20 mg/dL INTERFACE SYSTEM CREATININE 1.1 0.7 - 1.5 mg/dL (inactive) INTERFACE SYSTEM SODIUM 141 136 - 145 mEq/L INTERFACE SYSTEM POTASSIUM 4.9 3.5 - 5.0 mEq/L INTERFACE SYSTEM CHLORIDE 110 95 - 110 mEq/L INTERFACE SYSTEM CO2 26 22 - 32 mmol/l INTERFACE SYSTEM ANION GAP 10 9 - 20 mEq/L INTERFACE SYSTEM OSMOLALITY, CALCULATED 293 275 - 295 mOsm/Kg INTERFACE SYSTEM CALCIUM 9.2 8.4 - 10.5 mg/dL INTERFACE SYSTEM 10/26/2004 9:00 AM CDT Inderjit ALSTON CHEMISTRY ORDERABLES Final Re sult Performing Organization Address [facility] de Phone Number INTERFACE SYSTEM Refer to clinic/hospital department documented in this encounter Visit Diagnoses Diagnosis Family history of diabetes mellitus- Primary documented in this encounter Care Teams Char Puller Relationship Specialty Start Date End Date Jessica Mccabe MD [address] [address] PCP - General Family Practice 05/07/18 documented as of this encounter
--- OUTSIDE RECORDS SUMMARY | 2024-10-25 18:24 | XMS_ITS | Encounter Summary ---
Author Organization [facility] Address [address] [place] [address] Care Team Providers Care Upholstery Mechanic Name Role Phone Jessica Mccabe MD Primary Care Provider [phone] Encounter Details Date Type Department Care Team (Latest Contact Info) Description 09/05/2006 Outpatient Historical [facility] Medicine- [address] [phone] Inderjit Naylor PA NO ADDRESS ON FILE Esophageal Reflux (Primary Dx); Other and Unspecified Hyperlipidemia; Pain in Joint, Site Unspecified Social History Tobacco Use Types Packs/Day Years Used Date Smoking Tobacco: Never Assessed Sex and Gender Information Value Date Recorded Sex Assigned at Not on file 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
--- OUTSIDE RECORDS SUMMARY | 2024-10-25 18:24 | XMS_ITS | Encounter Summary ---
Author Organization 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
--- OUTSIDE RECORDS SUMMARY | 2024-10-25 18:24 | XMS_ITS | Encounter Summary ---
Author Organization [facility] Address [address] [place] [address] Care Team Providers Care Supervisor Sulfuric Acid Plant Name Role Phone Jessica Mccabe MD Primary Care Provider [phone] Reason for Referral * Outpatient Services (Routine) - Closed Specialty Diagnoses / Procedures Referred By Estefany alford Referred To Contact MRI Diagnoses Foot pain, left Procedures MRI FOOT WO CONTRAST LEFT Alyse Harris FNP [address] [place] [address] Phone: tel: fax: [facility] [address] [facility] [address] [place] [address] Phone: tel: fax: Referral ID Status Reason Start Date Expiration Date Visits Re quested Visits Authorized [id number] Closed 02/17/2013 03/20/2014 1 1 Encounter Details Date Type Department Care Team (Late st Contact Info) Description 02/17/2013 Ancillary Orders [facility] Family Medicine- [place] [address] [place] [address] Alyse Harris FNP [address] [place] [address] Foot pain, left (Primary Dx) Social History Tobacco Use Types Packs/Day Years Used Date Smoking Tobacco: Never Smokeless Tobacco: Never Alcohol Use Standard Drinks/Week Comments No 0 (1 standard drink = 0.6 oz pur e alcohol) Sex and Gender Information Value Date Recorded Sex Assigned at Not on file 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 2. Plantar fasciitis of the lateral cord of the plantar fascia. 3. 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 4. Nonspecific bimalleolar and deep subcutaneous perifascial fluid about the ankle and dorsal aspect of the mid and imaged forefoot. 5. Small effusion of the posterior subtalar joint. ?? RAMIREZ/tjb - uploaded from [employer]- Narrative 02/17/2013 12:01 PM CDT IMPRESSION - see report below. Exam: MRI FOOT WO CONTRAST LEFT Date/Time of Exam: Feb 17, 2013 10:07:50 AM Reason For Exam: Pain in limb. Technique: T1 axial, coronal, and sagittal, T1 fat-sat axial, T2 fat-sat axial and sagittal, STIR coronal and sagittal. Comparison: Left calcaneus radiograph 03/27/2012. Findings: Bimalleolar subcutaneous edema and deep perifascial subcutaneous fluid is present. ??Small amount of fluid within the tendon sheath of the tibialis posterior tendon is identified. ??There is slight enlargement of the tibialis posterior tendon relative to the adjacent flexor digitorum longus tendon identified. ??There is marked flattening of the peroneus brevis tendon by the peroneus longus tendon at the level of and distal to the retromalleolar groove identified. Mild longitudinal splitting of the peroneus brevis tendon by the peroneus longus tendon at the level of and distal to the retromalleolar groove is identified compatible with peroneus brevis split syndrome. ??The superior peroneal retinaculum remains intact. Flexor and extensor tendons are otherwise intact. ??The anterior inferior tibiofibular ligament is intact. ??The anterior and posterior talofibular ligaments are intact. ??The deltoid ligamentous complex is intact. ??A physiologic effusion of the tibiotalar joint is present. Small effusion of the posterior subtalar joint is identified. ??Minimal subchondral cystic change of the volar aspect of the tibial plafond is noted. ??The sinus tarsi is unremarkable. ??There is thickening and intrinsic intermediate signal abnormality on T1 weighted sequences with corresponding intermediate signal abnormality on fluid sensitive sequences within the central cord of the plantar fascia identified proximal to the insertion on the posterior process of the calcaneus noted. ??Minimal metallic artifact about the plantar aspect of the hindfoot is noted. ??There is retraction and thickening of the central cord of the plantar fascia with full thickness disruption of the central cord of the plantar fascia identified with an approximately 1.6 cm gap noted. ??Thickening and intrinsic intermediate signal abnormality on T1 and fluid sensitive sequence in the lateral cord of the plantar fascia is noted. ??No concerning marrow signal abnormality is identified. ??No osteochondral lesion of the talus identified. Nonspecific dorsal subcutaneous edema about the mid and forefoot present. Procedure Note Melissa Bain MD - 02/17/2013 IMPRESSION - see report below. Exam: MRI FOOT WO CONTRAST LEFT Date/Time of Exam: Feb 17, 2013 10:07:50 AM Reason For Exam: Pain in limb. Technique: T1 axial, coronal, and sagittal, T1 fat-sat axial, T2 fat-sat axial and sagittal, STIR coronal and sagittal. Comparison: Left calcaneus radiograph 03/27/2012. Findings: Bimalleolar subcutaneous edema and deep perifascial subcutaneous fluid is present. Small amount of fluid within the tendon sheath of the tibialis posterior tendon is identified. There is slight enlargement of the tibialis posterior tendon relative to the adjacent flexor digitorum longus tendon identified. There is marked flattening of the peroneus brevis tendon by the peroneus longus tendon at the level of and distal to the retromalleolar groove identified. Mild longitudinal splitting of the peroneus brevis tendon by the peroneus longus tendon at the level of and distal to the retromalleolar groove is identified compatible with peroneus brevis split syndrome. The superior peroneal retinaculum remains intact. Flexor and extensor tendons are otherwise intact. The anterior inferior tibiofibular ligament is intact. The anterior and posterior talofibular ligaments are intact. The deltoid ligamentous complex is intact. A physiologic effusion of the tibiotalar joint is present. Small effusion of the posterior subtalar joint is identified. Minimal subchondral cystic change of the volar aspect of the tibial plafond is noted. The sinus tarsi is unremarkable. There is thickening and intrinsic intermediate signal abnormality on T1 weighted sequences with corresponding intermediate signal abnormality on fluid sensitive sequences within the central cord of the plantar fascia identified proximal to the insertion on the posterior process of the calcaneus noted. Minimal metallic artifact about the plantar aspect of the hindfoot is noted. There is retraction and thickening of the central cord of the plantar fascia with full thickness disruption of the central cord of the plantar fascia identified with an approximately 1.6 cm gap noted. Thickening and intrinsic intermediate signal abnormality on T1 and fluid sensitive sequence in the lateral cord of the plantar fascia is noted. No concerning marrow signal abnormality is identified. No osteochondral lesion of the talus identified. Nonspecific dorsal subcutaneous edema about the mid and forefoot present. IMPRESSION Impression: 1. 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 2. Plantar fasciitis of the lateral cord of the plantar fascia. 3. 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 4. Nonspecific bimalleolar and deep subcutaneous perifascial fluid about the ankle and dorsal aspect of the mid and imaged forefoot. 5. Small effusion of the posterior subtalar joint. RAMIREZ/[email or web address] - uploaded from [employer]- Alyse STAFFORDP MR ORDERABLES Final Resul t documented in this encounter Visit Diagnoses Diagnosis Foot pain, left Pain in limb Foot pain, left- Primary Pain in limb documented in this encounter Care Teams Supervisor Sulfuric Acid Plant Relationship Specialty Start Date End Date Jessica Mccabe MD [address] [phone] PCP - General Family Practice 05/07/18 documented as of this encounter
--- OUTSIDE RECORDS SUMMARY | 2024-10-25 18:24 | XMS_ITS | Encounter Summary ---
Author Organization [facility] Address [address] [place] [address] Care Team Providers Care Card Decorator Name Role Phone Jessica Mccabe MD Primary Care Provider Encounter Details Date Type Department Care Team (Late st Contact Info) Description 10/22/2006 Outpatient Historical [facility] [address] [place] [address] [place] [facility] [address] [place] [phone] Shefali Shahid, MURRAY [address] [place] [address] Adhesive Capsulitis of Shoulder (Primary Dx) Social History Tobacco Use Types Packs/Day Years Used Date Smoking Tobacco: Never Assessed Sex and Gender Information Value Date Recorded Sex Assigned at Not on file 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
--- OUTSIDE RECORDS SUMMARY | 2024-10-25 18:24 | XMS_ITS | Encounter Summary ---
Author Organization [facility] Address [address] [place] [address] Care Team Providers Care Poultry Breeder Name Role Phone Jessica Mccabe MD Primary Care Provider Encounter Details Date Type Department Care Team (Latest Contact Info) Description 01/28/2005 Outpatient Historical [facility] Family Medicine- [address] [phone] Dexter Colin MD [address] [phone] JOINT PAIN-PELVIS (Primary Dx) Social History Tobacco Use Types Packs/Day Years Used Date Smoking Tobacco: Never Assessed Sex and Gender Information Value Date Recorded Sex Assigned at Not on file 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
--- OUTSIDE RECORDS SUMMARY | 2024-10-25 18:24 | XMS_ITS | Encounter Summary ---
Author Organization [facility] Address [address] [place] [address] Care Team Providers Care Fashion Coordinator Name Role Phone Jessica Mccabe MD Primary Care Provider Encounter Details Date Type Department Care Team (Late st Contact Info) Description 08/26/2006 Outpatient [facility] [address] 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
--- OUTSIDE RECORDS SUMMARY | 2024-10-25 18:24 | XMS_ITS | Encounter Summary ---
Author Organization [facility] Address [address] [place] [address] Care Team Providers Care Paint And Table Edger Name Role Phone Jessica Mccabe MD Primary Care Provider Encounter Details Date Type Department Care Team (Late st Contact Info) Description 07/20/2007 Outpatient Historical [facility]- [facility] [place] [address] [place] [phone] Charlie Franco MD NO ADDRESS ON FILE Social History Tobacco Use Types Packs/Day Years Used Date Smoking Tobacco: Never Assessed Sex and Gender Information Value Date Recorded Sex Assigned at Not on file 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
--- OUTSIDE RECORDS SUMMARY | 2024-10-25 18:24 | XMS_ITS | Encounter Summary ---
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
--- OUTSIDE RECORDS SUMMARY | 2024-10-25 18:24 | XMS_ITS | Encounter Summary ---
Author Organization [facility] Address [address] [place] [address] Care Team Providers Care Watermelon Inspector Name Role Phone Jessica Mccabe MD Primary Care Provider Encounter Details Date Type Department Care Team (Latest Contact Info) Description 10/26/2004 Outpatient Historical [facility] Medicine- [address] [phone] Inderjit Naylor PA NO ADDRESS ON FILE CARPAL TUNNEL SYNDROME (Primary Dx); HEADACHE; SCREENING-DIABETES MELLITUS; AFTERCARE ASSISTED USE MEDICATN Social History Tobacco Use Types Packs/Day Years Used Date Smoking Tobacco: Never Assessed Sex and Gender Information Value Date Recorded Sex Assigned at Not on file 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
--- OUTSIDE RECORDS SUMMARY | 2024-10-25 18:24 | XMS_ITS | Encounter Summary ---
Author Organization [facility] Address [address] [place] [address] Care Team Providers Care Director Of Accreditation Name Role Phone Jessica Mccabe MD Primary Care Provider [phone] Encounter Details Date Type Department Care Team (Latest Contact Info) Description 01/27/2004 Outpatient [facility] [address] [phone] Dexter Colin MD [address] [place] [address] ACUTE BRONCHITIS (Primary Dx); ROTATOR CUFF SYND NOS Social History Tobacco Use Types Packs/Day Years Used Date Smoking Tobacco: Never Assessed Sex and Gender Information Value Date Recorded Sex Assigned at Not on file 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
--- OUTSIDE RECORDS SUMMARY | 2024-10-25 18:24 | XMS_ITS | Encounter Summary ---
Author Organization [facility] Address [address] [place] [address] Care Team Providers Care Train Examiner Name Role Phone Jessica Mccabe MD Primary Care Provider Encounter Details Date Type Department Care Team (Latest Contact Info) Description 02/04/2003 Outpatient Historical [facility] Family Medicine [address] [phone] Dexter Colin MD [address] 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
--- OUTSIDE RECORDS SUMMARY | 2024-10-25 18:24 | XMS_ITS | Encounter Summary ---
Author Organization [facility] Address [address] [place] [address] Care Team Providers Care Inside Channel Account Manager Name Role Phone Jessica Mccabe MD Primary Care Provider Encounter Details Date Type Department Care Team (Latest Contact Info) Description 10/03/2006 Outpatient Historical [facility] Medicine- [address] [phone] Inderjit Naylor PA NO ADDRESS ON FILE Unspecified Chest Pain (Primary Dx); Other and Unspecified Hyperlipidemia; Pain in Joint, Site Unspecified Social History Tobacco Use Types Packs/Day Years Used Date Smoking Tobacco: Never Assessed Sex and Gender Information Value Date Recorded Sex Assigned at Not on file 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
[2024-10-25 19:21] LABS: Troponin 5 2HR 34.77 ng/L (0-15); Troponin 5 2HR Delta 0.77 ABS# (0-10)
--- NOTE | 2024-10-25 23:57 | ECG_ITS ---
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 Measurements Intervals [place] Rate: 71 P: 0 WY: 0 QRS: -2 QRSD: 91 T: 28 QT: 366 QTc: 398 Interpretive Statements ATRIAL FIBRILLATION WITH ABERRANT CONDUCTION OR VENTRICULAR PREMATURE COMPLEXES LOW QRS VOLTAGE IN PRECORDIAL LEADS [QRS DEFLECTION < 1.0 mV IN CHEST LEADS] POSSIBLE ANTERIOR MYOCARDIAL INFARCTION , OF INDETERMINATE AGE [30 ms Q WAVE IN V3/V4, OR R < 0.2 mV IN V4] MODERATE T-WAVE ABNORMALITY, CONSIDER LATERAL ISCHEMIA [-0.1+ mV T-WAVE IN I/aVL/V5/V6] Compared to ECG 10/25/2024 18:41:45 Ventricular premature complex(es) now present.Aberrant conduction of supraventricular beat(s) now present.Low QRS voltage now present Myocardial infarct finding now present .T-wave abnormality now present Possible ischemia now present. Left bundle-branch block no longer present Electronically Signed On 10-27-2024 21:53:10 CDT by Yulissa Kumar M.D. [email or web address]
[2024-10-26] VITALS: BP 94/55; PULSE 71; RESP 18; TEMP 36.7; O2SAT 95
[2024-10-26] MEDS: ceFAZolin 2,000 mg SDV 2000 MG IVP ×2 (03:23→09:35)
[2024-10-26 03:26] VITALS: RESP 18
[2024-10-26] MEDS: oxyCODONE-APAP 10-325 mg Tablet PO (03:26)
[2024-10-26 05:32] LABS: Basophils % 0.2 %; Hematocrit 32.7 % (37-53); Lymphocytes # 1.2 10^3/uL (0.8-4.8); Lymphocytes % 9.9 %; Mean Corpuscular HGB Conc 32.4 g/dL (30-55); Mean Corpuscular Hemoglobin 31.4 pg (27-33); Mean Corpuscular Volume 96.7 fl (82-101); Mean Platelet Volume 8.9 fL (7.4-10.4); Monocytes % 8.5 %; Neutrophils # 9.69 10^3/uL (1.8-7.7); Neutrophils % 81.1 %; Nucleated Red Blood Cells % 0 %; Platelet Count 164 10^3/cmm (157-399); Red Blood Count 3.38 10^6/uL (3.85-5.65); Red Cell Distribution Width 13.2 % (12.1-15.1); White Blood Count 11.96 10^3/uL (3.29-11.43)
[2024-10-26 05:49] LABS: Anion Gap 15.3 (5-19); Blood Urea Nitrogen 26 mg/dL (8-23); Calcium 8.9 mg/dL (8.5-10.5); Carbon Dioxide 21 mmol/L (22-29); Chloride 103 mmol/L (98-107); Creatinine Clr Calc Pharmacy 60.9583; Glucose 137 mg/dL (65-115); Osmolality Calculated 285 mOsm/kg (285-295); Potassium 5.3 mmol/L (3.5-5.1); Sodium 134 mmol/L (136-145)
[2024-10-26 06:00] VITALS: PULSE 68
[2024-10-26 07:13] VITALS: BP 109/65; PULSE 68; RESP 15; TEMP 36.6; O2SAT 96
--- NOTE | 2024-10-26 08:16 | PM.DCS ---
Discharge Providers Date of Admission: 10/25/24 15:16 Date of Discharge: October 26, 2024 Attending Provider at Admission: Alex Orona DO Attending Provider at Discharge: Alex Orona DO Primary Care Provider: Damon Edmonds Diagnoses at Discharge Discharge Diagnosis (1) Status post hardware removal: Status: Acute Permanent problem details: Dr Orona, L2-pelvis (2) Atrial fibrillation: Status: Acute Qualifiers: Atrial fibrillation type: longstanding persistent Qualified Code(s): I48.11 - Longstanding persistent atrial fibrillation (3) Aortic stenosis, moderate: Status: Acute Permanent problem details: echo 09/2024 TRUE 0.72 cm 2, mean gradient 22.5 mmHg (4) CHF (congestive heart failure), NYHA class III: Status: Chronic Qualifiers: Congestive heart failure type: diastolic Congestive heart failure chronicity: chronic Qualified Code(s): I50.32 - Chronic diastolic (congestive) heart failure (5) Chronic kidney disease: Status: Chronic Qualifiers: Chronic kidney disease stage: stage 3 (moderate) Chronic kidney disease stage 3 subtype: stage 3a (GFR 45-59) Qualified Code(s): N18.31 - Chronic kidney disease, stage 3a Reason for Visit Reason for Visit: [id number] Physical Exam Narrative: Patient feeling well this morning pain is controlled. Discharge Data Studies Completed and Pending Pending at discharge Category Date Time Status XR lumbar spine 2-3V* 19520 Routine Exams 10/25/24 16:32 Taken Laboratory Results WBC 11.96 10^3/uL (3.29-11.43) H 10/26/24 05:06 RBC 3.38 10^6/uL (3.85-5.65) L 10/26/24 05:06 Hgb 10.60 g/dL (11.27-16.99) L 10/26/24 05:06 Hct 32.7 % (37-53) L 10/26/24 05:06 MCV 96.7 fl (82-101) 10/26/24 05:06 MCH 31.4 pg (27-33) 10/26/24 05:06 MCHC 32.4 g/dL (30-55) 10/26/24 05:06 RDW 13.2 % (12.1-15.1) 10/26/24 05:06 Plt Count 164 10^3/cmm (157-399) 10/26/24 05:06 MPV 8.9 fL (7.4-10.4) 10/26/24 05:06 Neut % (Auto) 81.1 % 10/26/24 05:06 Lymph % (Auto) 9.9 % 10/26/24 05:06 Pitt % (Auto) 8.5 % 10/26/24 05:06 Eos % (Auto) 0.0 % 10/26/24 05:06 Baso % (Auto) 0.2 % 10/26/24 05:06 Neut # (Auto) 9.69 10^3/uL (1.8-7.7) H 10/26/24 05:06 Lymph # (Auto) 1.2 10^3/uL (0.8-4.8) 10/26/24 05:06 Pitt # (Auto) 1.0 10^3/uL (0.2-0.9) H 10/26/24 05:06 Eos # (Auto) 0.0 10^3/uL (0.0-0.8) 10/26/24 05:06 Baso # (Auto) 0.0 10^3/uL (0.0-0.1) 10/26/24 05:06 Nucleated RBC % (auto) 0 % 10/26/24 05:06 Nucleated RBCs # 0.0 /100WBC 10/26/24 05:06 Sodium 134 mmol/L (136-145) L 10/26/24 05:06 Potassium 5.3 mmol/L (3.5-5.1) H 10/26/24 05:06 Chloride 103 mmol/L (98-107) 10/26/24 05:06 Carbon Dioxide 21 mmol/L (22-29) L 10/26/24 05:06 Anion Gap 15.3 (5-19) 10/26/24 05:06 BUN 26 mg/dL (8-23) H 10/26/24 05:06 Creatinine 1.2 mg/dL (0.7-1.2) 10/26/24 05:06 GFR Calculation Not Reportable 10/26/24 05:06 Glucose 137 mg/dL (65-115) H 10/26/24 05:06 Calculated Osmolality 285 mOsm/kg (285-295) 10/26/24 05:06 Calcium 8.9 mg/dL (8.5-10.5) 10/26/24 05:06 Magnesium 1.7 mg/dL (1.7-2.3) 10/25/24 16:52 Troponin T Baseline 34 ng/L (0-15) H 10/25/24 16:52 Troponin T 120 Minute 34.77 ng/L (0-15) H 10/25/24 18:56 Delta Troponin T 0.77 ABS# (0-10) 10/25/24 18:56 Troponin T Hi Sens 6Hr 36.10 ng/L (0-15) H 10/25/24 22:50 Troponin T Hi Sens 6Hr Delta 2.10 ng/L (0-12) 10/25/24 22:50 NT-Pro-B Natriuret Pep 404 pg/mL (0-450) 10/25/24 16:52 Vitals Last Vital Signs Temp 97.8 F 10/26/24 07:13 Pulse 68 10/26/24 07:13 Resp 15 10/26/24 07:13 BP 109/65 10/26/24 07:13 Pulse Ox 96 10/26/24 07:13 O2 Del Method Room Air 10/26/24 07:13 O2 Flow Rate 2 10/25/24 13:46 Discharge Plan Discharge Patient Disposition: Home Condition: Stable Prescriptions: New oxycodone 10 mg tablet 10 mg PO Q4H PRN (Reason: pain) 7 Days Qty: 42 0RF Continued lisinopril 20 mg tablet 20 mg PO DAILY acetaminophen [Tylenol] 325 mg tablet 325 mg PO QID PRN (Reason: Pain) bumetanide 1 mg tablet 1 mg PO DAILY Held Eliquis 5 mg tablet 5 mg PO BID Hold Instructions: Resume on 10/27/24. Discontinued oxycodone 10 mg tablet 10 mg PO Q4H PRN (Reason: pain) 30 Days Qty: 180 0RF Discharge Orders: Discharge Order (Routine); Ordered 10/26/24 Ordered By: Alex Orona Discharge Diet: Advance as tolerated Discharge Activity: Limit activity as instructed Patient Instructions: Acute Wound Care (DC), Opioid Safety, Post Anesthesia Care Activity Restrictions/Additional Instructions: Thank you for [facility] for your care! The following is a list of instructions, from your provider, to follow upon your discharge to ensure you have the optimal recovery from your recent injury orsurgery. Follow-up care is a devine part of your treatment and safety. Be sure to make and go to all appointments, and call your doctor if you are having problems. If you do not already have a follow-up appointment made, call Dr. Orona office in the next 1-3 days to make follow up appointment for 2 weeks at [phone]. It is also a good idea to know your test results and keep a list of the medicines you take. Medications will be prescribed for you at your provider's discretion. These medications are to be used as instructed; if they are taken more often that prescribed they will not be refilled early and in most cases will not be refilled at all. > When a refill is needed,you should contact [facility] 2-3 business days before your prescription runs out. Medications will NOT be refilled by circulation assistant providers after hours! > Many pain medications contain Tylenol (Acetaminophen). Do not consume more than 4,000 mg of Tylenol per day in total with any combination ofmedications. > Pain medications can cause constipation. Please use an over the counter stool softener as directed, while taking pain medications. Consulty our local pharmacist with questions or recommendations on stool softeners. If constipation persists, contact our office or your primary care provider. > While under our care,you are not to receive pain medications or other controlled substances from any other provider unless our office is notified and approves. Any attempts to do so will result in refusal to prescribe any further pain medications and possible dismissal from our practice. ? Your wound and/or dressing should remain clean and dry for 2 days after surgery. On postoperative day 2 (48 hours after your surgery) the dressing (if present) should be removed and it is okay to shower and get the incision wet. Pad dry afterwards. No further dressing should be required from that point on. Do not put any creams or ointments on theincision > It is normal for there to be a small amount of discharge (bloody or blood tinged) present from a surgical wound for the first 1-3days. > The wound should be examined twice a day for signs of infection. Mild redness or bruising is to be expected but indications that an infection maybe starting would include; An increase in redness, swelling, or discharge, a foul odor present around the incision, and/or a fever greater than 101 ?F ? Showering is permitted, however we ask that you do not take a bath, sit in a whirlpool / Jacuzzi, or go swimming for 1 month. For only the first 2 days after surgery, lt wilt be necessary for you to cover your wound/dressing with plastic and tape to keep it dry. ? Walking is essential for the healing process after surgery. We would like you to slowly advance your walking. This should be done on relatively flat clear ground (inside or out) or can be done on a treadmill. Remember this goal does not have to happen all at once, slowly increase your distance and duration. This can be broken into more more than one walk per day as tolerated. Patients who walk as directed after surgery rarely require Physical Therapy. In the unlikely event this issue arises your provider will direct hospital staff to make the appropriate arrangements. ? No lifting over 5 pounds {a gallon of milk) or bending/twisting until further notice. Each of these activities places an unnecessary amount of stress onto the body and can impede the delicate healing process. > Instead of bending at the waist, keep your back straight and bend at the knees. > Instead of twisting your torso, keep your back straight and turn your entire body with your feet. ? You may sleep in any position which makes you comfortable. Many patients find comfort sleeping in a reclining chair. It is not abnormal to have difficulty sleeping for the first several weeks following your surgery. We recommend trying Benadry! or Tylenol PM as directed to help with your sleeping difficulties. Both medications are over the counter and available withoutprescription. ? NO SMOKING!!! Smoking dramatically increases the probability of developing postoperative wound infections. ? Common complaints after lumbar and/or thoracic spine surgery include, but are not limited to: numbness and/or tingling in the legs, pain around the incision and surrounding tissues, muscle spasms, or stiffness of the middle to low back. Contact our office if these symptoms persist or if an acute change occurs. ? No driving for the first 3-5days, and not while taking narcotics until seen at your follow-up appointment and cleared. There are no restrictions for riding on short trips, however if you take a longer trip, arrangements should be made to make regular stops to get out of the vehicle and stretch . ? Swelling is an unfortunate event that will take place with any surgery and is the primary source of your postoperative discomfort. While walking and regular approved activities helps control inflammation, there are additional steps you can take to minimizeswelling. > Place ice over the surgical site and surrounding tissue for twenty minutes, followed by applying a low/medium heat (heating pad) for an additional twenty minutes every 1-2 hours as needed for painrelief. > You may use of over the counter anti-inflammatory medications (Ibuprofen, Motrin, Aleve, Advil, etc) as directed on the package label. These types of medicines wm significantly reduce the amount of discomfort you experience after surgery from swelling. It should be noted that if you have and allergy to any of these medications, or a history of ulcers or kidney disease you should consult you primary care provider prior to starting these medications. Discharge Attestations Time Spent in Discharge Care*: less than 30 min Quality Metrics Clinical Quality Measures [ No reported AMI, CVA or VTE this stay] Coding Level of Care Code Acute Code for Chg Fwd Diagnoses Status post hardware removal Z98.890 Longstanding persistent atrial fibrillation I48.11 Atrial fibrillation type: longstanding persistent Aortic stenosis, moderate I35.0 Chronic diastolic congestive heart failure, NYHA class 3 I50.32 Congestive heart failure type: diastolic Congestive heart failure chronicity: chronic Stage 3a chronic kidney disease N18.31 Chronic kidney disease stage: stage 3 (moderate) Chronic kidney disease stage 3 subtype: stage 3a (GFR 45-59)
--- NOTE | 2024-10-26 08:29 | PC.CHAP ---
Pastoral Care Encounter/Spiritual Assessment Type of Contact [] Declined poultry scientist visit [] Patient/Family/Request visit [] Outpatient visit [] Follow-up visit [] Physician referral [] Code/Alert [x] Routine visit [] Staff referral [] Actively dying [] Patient sleeping [] Family support [] [] Out of room [] Palliative care [] [] Receiving care in room [] Pre-surgical visit [] Trauma [] Long length of stay [] ICU visit [] Other: Relational/Emotional Strength [x] Patient feels connected with others/family/visitors/staff [] Distress [] Loneliness/isolation [] Abandonment Spirituality of Patient [x] Person of Jesusita [] Attends Anglican of their Jesusita [x] Believes in Prayer [] Reads Bible or Uatsdin materials [] There are Spiritual issues to be addressed Radiology Rn Interventions [x] Prayer [] Active listening [x] Non-anxious presence [x] Spiritual/emotional support [] Crisis/trauma care [] Spiritual counseling [] Bereavement support [] Provided bereavement packet [] Provided Bible/devotional materials [] Provided toy/stuffed animal, coloring book to patient or family member [] Provided Communion [] Anointing/[place] [] Salvation [x] Completed spiritual assessment [] Other: Impact on Illness or Injury [] Angry [] Fearful [] Anxious [] Often cries [] Exhaustion [] Unable to work [] Unable to attend orthodoxy [] Unable to walk/stand [] Unable to read [] Unable to drive [] Unable to eat/drink [] Unable to sleep [] Unable to be with family [] Patient intubated [] Other: Summary Time spent with patient 5 min
[2024-10-26] MEDS: docusate sodium 100 mg Capsule PO (08:47)
[2024-10-26] MEDS: lisinopril 20 mg Tablet PO (08:47)
[2024-10-26] MEDS: bumetanide 1 mg Tablet PO (08:47)
[2024-10-26] MEDS: sodium polystyrene sulfonate 15 gm/60 mL Btl PO (09:35)
[2024-10-26 09:38] LABS: Estmated Average Glucose 131; Hemoglobin A1C 6.2 % (4.0-6.0)
[2024-10-26 09:43] LABS: Thyroid Stimulating Hormone 1.05 uIU/mL (0.27-4.20)
--- NOTE | 2024-10-26 09:52 | P.PN_ITS ---
Subjective 2 Subjective: Hospital course, labs appreciated. Patient seen sitting comfortably in bed. States feeling a lot better. No further arrhythmias noted on telemetry. Vitals/I&O/Wt Last Vital Signs Temp 97.8 F 10/26/24 07:13 Pulse 68 10/26/24 07:13 Resp 15 10/26/24 07:13 BP 109/65 10/26/24 07:13 Pulse Ox 96 10/26/24 07:13 O2 Del Method Room Air 10/26/24 07:13 O2 Flow Rate 2 10/25/24 13:46 10/25/24 10/26/24 10/26/24 22:59 06:59 14:59 Intake Total 1480 / 2580 1900 / 4480 240 / 240 Output Total 155 / 195 Balance 1325 / 2385 1900 / 4285 240 / 240 Weight last 48 hrs Weight 132.165 kg Weight 129.9 kg Weight 127.006 kg Physical Exam 2 Narrative: Patient is awake and alert, able to provide history. Normocephalic. Extraocular movements are intact. Moist mucous membranes. Neck is large but supple. Lungs are clear to auscultation bilaterally. Cardiovascular exam reveals regular rhythm, no murmurs gallops or rubs. Abdomen is soft, nontender. Sensation is intact to light touch and equal in both thighs and calves. Strength is equal with foot pumps bilaterally, handgrip equal. Speech is clear, face symmetric. Data 10/26/24 05:06 10/26/24 05:06 A&P Assessment and plan (1) Status post hardware removal: POD [address] Orona. -General anesthesia -Pain control as per orthopedics -On cefazolin post-op regimen, s/p vancomycin in OR -Has SCDs, to resumeeliquis when okay'ed by Dr Orona -Stool softeners, laxatives as needed -PT to see -Plan is for home with home health when stable (2) Atrial fibrillation: Chronically on anticoagulation. Has not been requiring rate control. Perioperatively heart rate into the low 100s at times and with a wide-complex appearance due to left bundle branch block. I reviewed the case with Dr. Deluca, patient's sales service representative. Within the last 2 months he has had stress testing and echocardiogram. Patient himself has not had any complaints of any new symptoms In the outpatient setting and is not currently complaining of any cardiopulmonary symptoms such as chest pain, palpitations or shortness of breath at rest. He does have shortness of breath with exertion. -Will check serial cardiac enzymes and EKGs -Check BNP -Telemetry monitoring -No further work up indicated at this time given known history of atrial fibrillation, current rate and lack of symptoms -Monitor for any symptom development -Anticipate resumption of apixaban postoperatively when appropriate from postsurgical standpoint -Has an appointment with Dr Deluca already scheduled for 11/09, same day as follow up planned with Dr Orona. Qualifiers: Atrial fibrillation type: longstanding persistent Qualified Code(s): I 48.11 - Longstanding persistent atrial fibrillation (3) Aortic stenosis, moderate: New finding on recent echo. No symptoms atributable to this described. -Monitor volume status during hospital stay (4) CHF (congestive heart failure), NYHA class III: Chronically on bumetanide and lisinopril. Previously on spironolactone per outpatient pharamacy records but has had some elevated postassium levels and I suspect this has been stopped due to this. Patient reports taking potassium at home previously also but is no longer taking. -Resume home lisinopril 20 mg daily tomorrow along with home Bumex 1 mg daily -Need to clarify if is or is not on spironolactone chronically prior to discharge -Orders to stop fluid after one liter written Qualifiers: Congestive heart failure type: diastolic Congestive heart failure chronicity: chronic Qualified Code(s): I50.32 - Chronic diastolic (congestive) heart failure (5) Chronic kidney disease: Baseline creatinine previously around 1, but recently 1.3-1.5 here. No longer on spironolactone from what I can tell though remains on bumex and lisinopril. -Monitor renal function and output while here -Renal dose meds if indicated Qualifiers: Chronic kidney disease stage: stage 3 (moderate) Chronic kidney disease stage 3 subtype: stage 3a (GFR 45-59) Qualified Code(s): N18.31 - Chronic kidney disease, stage 3a Plan Plan for the day: Echocardiogram done on 09/15/2024 showed a normal EF with grade 3 diastolic dysfunction. Moderate aortic valve stenosis. Patient is stable to be discharged from internal medicine standpoint. He was found to have hyperkalemia. On review of labs it seems patient has had hyperkalemia persistently in the past. Creatinine has been stable around 1.2. Medications reviewed reveals that he is on lisinopril 20 mg oral daily. Given persistent hyperkalemia, arrhythmia cannot rule out arrhythmia in setting of mild hyperkalemia. Discussed in detail with the patient. Will plan to switch from lisinopril to amlodipine 10 mg oral daily. He should check his blood pressures daily at home and maintain a blood pressure diary and follow-up with a primary care provider within next 2 weeks for further adjustment of antihypertensive as needed with goal blood pressure of 100-140 systolic. He should have a repeat BMP done in 1 week. For hyperkalemia currently we will give 1 dose of Kayexalate. Check A1c. Will start on Farxiga 10 mg daily given diastolic heart failure. Medical reconciliation completed. PDMP PDMP Reviewed: Not Reviewed Attestations 2 Medical Necessity Statement*: As per primary team. Diagnoses Status post hardware removal Z98.890 Longstanding persistent atrial fibrillation I48.11 Atrial fibrillation type: longstanding persistent Aortic stenosis, moderate I35.0 Chronic diastolic congestive heart failure, NYHA class 3 I50.32 Congestive heart failure type: diastolic Congestive heart failure chronicity: chronic Stage 3a chronic kidney disease N18.31 Chronic kidney disease stage: stage 3 (moderate) Chronic kidney disease stage 3 subtype: stage 3a (GFR 45-59)
[2024-10-26 10:27] LABS: Iron 36 ug/dL (59-158); Percent Saturation 12.3 % (20-50); Total Iron Binding Capacity 291 mcg/dl; Unsaturated Iron Binding 255 ug/dL (112-347)
[2024-10-26 10:43] LABS: Vitamin B12 317 pg/mL (232-1245)
[2024-10-26 11:39] VITALS: BP 109/65; PULSE 68; RESP 15; TEMP 36.6; O2SAT 96
--- NOTE | 2024-10-26 11:39 | PC.NURSE ---
Pharmacy could not fill patient's oxycodone because patient had just received a prescription on 10/05 for 180 tablets.
== END 2024-10-26 11:45 | disposition home or self-care (01) | DRG 496 ==
LOC: MEDSURG 18:21
PROVIDERS: Anesthesiology; Hospitalist; Student in an Organized Health Care Education/Training Program; Admitting Provider Orthopaedic Surgery; PCP Family Medicine; Visit Provider Orthopaedic Surgery
PROC: 0QP004Z Removal of Internal Fixation Device from Lumbar Vertebra, Open Approach (ICD-10-PCS; principal; 2024-10-25 10:00)
DX: T84.84XA Pain due to internal orthopedic prosthetic devices, implants and grafts, initial encounter (principal); I48.11 Longstanding persistent atrial fibrillation; I50.32 Chronic diastolic (congestive) heart failure; Z98.49 Cataract extraction status, unspecified eye; Z98.890 Other specified postprocedural states; Z79.899 Other long term (current) drug therapy; Z79.01 Long term (current) use of anticoagulants; N18.31 Chronic kidney disease, stage 3a; I35.0 Nonrheumatic aortic (valve) stenosis
CPT/HCPCS: 36415; 72100; 76000; 80048; 82607; 83036; 83540; 83550; 83735; 83880; 84132; 84443; 84484; 85025; 93005; 97116; 97161; J0690; J1100; J1171; J1885; J2250; J2704; J2710; J3010; J3370; J3490; J7030; J7120; J9999

== ENCOUNTER → 2024-11-09 07:56 | Outpatient (BNVA) | payer MEDICARE, MEDICAID, SELFPAY | PROVIDERS: PCP Family Medicine; Visit Provider Orthopaedic Surgery | DX: Z48.89 Encounter for other specified surgical aftercare (principal) | CPT/HCPCS: 99024 ==

== ENCOUNTER → 2024-12-21 07:56 | Outpatient (BNVA) | payer MEDICARE, MEDICAID, SELFPAY | PROVIDERS: PCP Family Medicine; Visit Provider Orthopaedic Surgery | DX: Z98.890 Other specified postprocedural states (principal) | CPT/HCPCS: 72100; 99024 ==

== ENCOUNTER 2025-01-20 08:18 | Outpatient (CLI) | payer MEDICARE, MEDICAID, SELFPAY ==
--- NOTE | 2025-01-14 13:36 | PC.NURSE ---
Attempt at notification: I called and left a for pt. The number is for his daughter Kelly. I left the [facility] number for a call back. I will try again later.
--- NOTE | 2025-01-14 16:26 | PC.NURSE ---
Returned call: Daughter Kelly returned my call. She understood the rescheduling of Friday's procedure and appreciated the call.
[2025-01-20 09:31] LABS: Hematocrit 47.1 % (37-53); Hemoglobin 15.10 g/dL (11.27-16.99); Mean Corpuscular HGB Conc 32.1 g/dL (30-55); Mean Corpuscular Hemoglobin 27.8 pg (27-33); Mean Corpuscular Volume 86.6 fl (82-101); Nucleated Red Blood Cells % 0 %; Platelet Count 254 10^3/cmm (157-399); Red Blood Count 5.44 10^6/uL (3.85-5.65); White Blood Count 8.37 10^3/uL (3.29-11.43)
[2025-01-20 09:43] LABS: Anion Gap 15.5 (5-19); Blood Urea Nitrogen 50 mg/dL (8-23); Calcium 10.0 mg/dL (8.5-10.5); Carbon Dioxide 37 mmol/L (22-29); Chloride 84 mmol/L (98-107); Glucose 129 mg/dL (65-115); Osmolality Calculated 293 mOsm/kg (285-295); Sodium 134 mmol/L (136-145)
[2025-01-20 09:57] LABS: Potassium 2.5 mmol/L (3.5-5.1)
--- NOTE | 2025-01-20 10:00 | SUR.PREOP ---
Critical labs K+ 2.5. Reported to Dr Deluca. He came in to discuss findings with the patient. Plan is to redraw BMP. Orders noted.
[2025-01-20 10:35] LABS: Anion Gap 13.7 (5-19); Blood Urea Nitrogen 51 mg/dL (8-23); Calcium 9.8 mg/dL (8.5-10.5); Carbon Dioxide 38 mmol/L (22-29); Chloride 85 mmol/L (98-107); Glucose 132 mg/dL (65-115); Osmolality Calculated 294 mOsm/kg (285-295); Sodium 134 mmol/L (136-145)
[2025-01-20 10:37] VITALS: BMI 40.8
[2025-01-20 10:37] LABS: Creatinine Clr Calc Pharmacy 55.1017; Potassium 2.7 mmol/L (3.5-5.1)
[2025-01-20 10:39] VITALS: BP 148/99; PULSE 71; RESP 18; TEMP 36.4; O2SAT 100
--- NOTE | 2025-01-20 11:22 | SUR.PREOP ---
BMP REDRAW/CRITICAL LAB k+ redraw 2.7 Dr Deluca made aware states he will be in to address and change medication orders and then reschedule procedure. Awaiting further orders.
--- NOTE | 2025-01-20 12:25 | PC.NURSE ---
Discharged home Pt discharged home with son at this time, verbalized understanding of discharge instructions.
== END 2025-01-20 08:19 | disposition home or self-care (01) ==
PROVIDERS: Nurse Practitioner Family; PCP Family Medicine; Visit Provider Internal Medicine
DX: Z53.8 Procedure and treatment not carried out for other reasons (principal)
CPT/HCPCS: 36415; 80048; 85025; J9999; Q0163

== ENCOUNTER 2025-01-24 09:43 | Outpatient (CLI) | payer MEDICARE, MEDICAID, SELFPAY ==
[2025-01-24 11:28] LABS: Anion Gap 12.2 (5-19); Blood Urea Nitrogen 21 mg/dL (8-23); Calcium 9.0 mg/dL (8.5-10.5); Carbon Dioxide 32 mmol/L (22-29); Chloride 96 mmol/L (98-107); Glucose 158 mg/dL (65-115); Osmolality Calculated 290 mOsm/kg (285-295); Potassium 3.2 mmol/L (3.5-5.1); Sodium 137 mmol/L (136-145)
== END 2025-01-24 09:44 | disposition home or self-care (01) ==
LOC: LAB 09:45
PROVIDERS: PCP Family Medicine; Visit Provider Nurse Practitioner Family
DX: N18.9 Chronic kidney disease, unspecified (principal)
CPT/HCPCS: 36415; 80048

== ENCOUNTER → 2025-02-01 10:08 | Outpatient (BNVA) | payer MEDICARE, MEDICAID, SELFPAY | PROVIDERS: PCP Family Medicine; Visit Provider Orthopaedic Surgery | DX: Z98.890 Other specified postprocedural states (principal) | CPT/HCPCS: 99024 ==